=== PATIENT | male | born 1950 | race Caucasian/White ===

== ENCOUNTER 2017-09-09 14:00 | Inpatient (IN) | payer OTHER ==
[~2017-09-09] VITALS: Ht 172.7 cm; Wt 90.2 kg
[2017-09-09] VITALS (33 sets, daily range): BP systolic 94–160; BP diastolic 58–96; PULSE 72–99; RESP 15–31; Ht 172.7 cm; Wt 90.2 kg
[2017-09-09] MEDS ORDERED: ASPIRIN 325 MG TAB PO STA (14:04)
[2017-09-09] MEDS ORDERED: NITROGLYCERIN (SL) 0.4 MG TAB ONE (14:12)
[2017-09-09 14:13] LABS: ABNORMAL IP MESSAGE 1; HEMATOCRIT 38.2 % (42.0-52.0); NUCLEATED RED BLOOD CELLS% 0.4 /100WBC (0.0-0.0); POSITIVE DIFF @See below; WHITE BLOOD COUNT 12.8 10^3/ul (4.8-10.8)
[2017-09-09 14:29] LABS: HEMOGLOBIN 12.2 g/dl (14.0-18.0); MEAN CORPUSCULAR HEMOGLOBIN 26.8 pg (29.0-33.0); MEAN CORPUSCULAR HGB CONC 31.9 g/dl (32.0-37.0); MEAN PLATELET VOLUME 9.2 fl (7.4-10.4); PLATELET COUNT 82 10^3/UL (140-415); RED BLOOD COUNT 4.55 10^6/ul (4.70-6.10); RED CELL DISTRIBUTION WIDTH 14.1 % (11.5-14.5)
[2017-09-09] MEDS ORDERED: NITROGLYCERIN (SL) 0.4 MG TAB SL ONE (14:30)
[2017-09-09] MEDS ORDERED: HEPARIN 1000 UNITS/ML 10 ML INJ IV ONE (14:30)
[2017-09-09 14:31] LABS: INR 1.02; PROTIME 13.4 Sec (12.2-14.2)
[2017-09-09] MEDS ORDERED: LIDOCAINE 1% (MDV) 20 ML INJ ONE (14:38)
[2017-09-09] MEDS ORDERED: FENTAnyl 50 MCG/ML VIAL ONE (14:38)
[2017-09-09] MEDS ORDERED: MIDAZOLAM 1 MG/ML 2 ML INJ ONE (14:38)
[2017-09-09] MEDS ORDERED: TAMS-14 PO (14:39)
[2017-09-09] MEDS ORDERED: VERAPAMIL 5 MG INJ ONE (14:40)
[2017-09-09] MEDS ORDERED: BENA10TA48 PO (14:40)
[2017-09-09] MEDS ORDERED: SIMV40TA2 PO (14:40)
[2017-09-09] MEDS ORDERED: BIVALIRUDIN 250MG /NS 50 ML 50 ML IVPB ONE ×2 (14:40→15:55)
[2017-09-09] MEDS ORDERED: NITROGLYCERIN (IC) 100 MCG/ML INJ ONE (14:41)
[2017-09-09] MEDS ORDERED: SERT25TA PO (14:41)
[2017-09-09] MEDS ORDERED: ASPI-664 PO (14:41)
[2017-09-09] MEDS ORDERED: OMEP20CA16 PO (14:41)
--- NOTE | 2017-09-09 14:44 | RADRPT ---
PROCEDURE: Chest x-ray CLINICAL INDICATION: Chest pain TECHNIQUE: Chest single view COMPARISON: None FINDINGS: There post CABG changes. Moderate cardiomegaly and mild atherosclerotic aortic calcification is seen . There is mild central venous congestion. Small right pleural effusion seen. Left costophrenic angl e sharp. IMPRESSION: 1. Moderate cardiomegaly with mild central venous congestion and small right pleural effusion. 2. Associated right lower lobe atelectasis. 3. Mild atherosclerotic aortic calcification. 4. Status post CABG RPTAT: HH .Eduar Dempsey MD, MD Date Time Electronically viewed and signed by .Eduar Dempsey MD, on 09/09/2017 14:44 .W/
[2017-09-09] MEDS ORDERED: CLOPIDOGREL 300 MG TAB ONE (14:46)
--- NOTE | 2017-09-09 14:48 | ERD ---
ER Documentation Chief Complaint Chief Complaint BIBA FOR CP,STEMI PER EMS,CABG 2WEEKS AGO HPI This is a 67-year-old male who presents to the emergency room by EMS for evaluation of chest pain. The patient states that he is having chest pain for the past 2 hours and localizes it to the middle portion of his chest. He does state that he is mildly nauseous and vomited once. This patient did undergo a bypass procedure at [facility] last week. He is unsure whether or not he has any stents placed. When EMS arrived to his home they transmitted an EKG which did show ST elevation. This patient stated that his pain does not radiate and he describes his pain as a pressure-like sensation worse with deep inspiration. He denies any aggravating or relieving factors for his pain. ROS All systems reviewed and are negative except as per history of present illness. Medications Home Meds Reported Medications Aspirin (Low Dose Aspirin) 81 Mg Tablet.dr, 81 MG PO DAILY, #30 TAB 09/09/17 Omeprazole* (Omeprazole*) 20 Mg Capsule.dr, 20 MG PO DAILY, #30 CAP 09/09/17 Sertraline Hcl* (Zoloft*) 25 Mg Tablet, 25 MG PO DAILY, #30 TAB 09/09/17 Benazepril Hcl* (Benazepril Hcl*) 10 Mg Tablet, 10 MG PO BID, #60 TAB 09/09/17 Simvastatin* (Zocor*) 40 Mg Tablet, 40 MG PO QHS, #30 TAB 09/09/17 Tamsulosin Hcl* (Flomax*) 0.4 Mg Cap.er.24h, 0.4 MG PO DAILY, CAP 09/09/17 Allergies Allergies: Coded Allergies: No Known Allergy (Unverified , 09/09/17) PMhx/Soc History of Surgery: Yes (CABG) Anesthesia Reaction: No Hx Neurological Disorder: No Hx Respiratory Disorders: No Hx Cardiac Disorders: Yes (HTN) Hx Psychiatric Problems: No Hx Miscellaneous Medical Probl: Yes (DM) Hx Alcohol Use: No Hx Substance Use: No Hx Tobacco Use: No Smoking Status: Former smoker Physical Exam Vitals Vital Signs Date Time Temp Pulse Resp B/P Pulse Ox O2 Delivery O2 Flow Rate FiO2 09/09/17 14:15 98.3 96 18 111/94 97 09/09/17 14:11 Nasal Cannula 2 Physical Exam INITIAL VITAL SIGNS: Reviewed by me GENERAL: The patient is well developed, dry vomit on shirt HEENT: Pupils equal, round, and reactive to light. EOMI. There is no scleral icterus. NECK: C-spine is soft and supple, there is no meningismus. There is no cervical lymphadenopathy. LUNGS: Clear to auscultation bilaterally. There are no rales, wheezes or rhonchi. HEART: Regular rate and rhythm, no murmurs, clicks, rubs or gallops. ABDOMEN: Soft, non-tender, non-distended. There are bowel sounds in all four quadrants. No rebound or guarding. EXTREMITIES: There is no peripheral cyanosis or edema. No focal swelling or erythema. NEUROLOGICAL: The patient moves all four extremities with 5/5 strength. Cranial nerves II - XII are intact. Normal gait. Alert and oriented SKIN: Doing sternotomy scar, there is no apparent rash or petechiae. HEME/LYMPHATIC: There is no evidence of excessive bruising or lymphedema. PSYCHIATRIC: The patient does not appear anxious or depressed. Result Diagram: 09/09/17 1400 Results 24 hrs Laboratory Tests Test 09/09/17 14:00 White Blood Count 12.810^3/ul Red Blood Count 4.5510^6/ul Hemoglobin 12.2g/dl Hematocrit 38.2% Mean Corpuscular Volume 84.0fl Mean Corpuscular Hemoglobin 26.8pg Mean Corpuscular Hemoglobin Concent 31.9g/dl Red Cell Distribution Width 14.1% Platelet Count 8210^3/UL Mean Platelet Volume 9.2fl Neutrophils % % Lymphocytes % % Monocytes % % Eosinophils % % Basophils % % Nucleated Red Blood Cells % 0.4/100WBC Neutrophils # 10^3/ul Lymphocytes # 10^3/ul Monocytes # 10^3/ul Eosinophils # 10^3/ul Basophils # 10^3/ul Nucleated Red Blood Cells # 10^3/ul Prothrombin Time 13.4Sec Prothrombin Time Ratio 1.0 INR International Normalized Ratio 1.02 Activated Partial Thromboplast Time Pending Current Medications Medications (Trade) Dose Ordered Sig/Yesi Route PRN Reason Start Time Stop Time Status Last Admin Dose Admin Aspirin (Aspirin) 325 mg ONCE STAT PO 09/09/17 14:04 09/09/17 14:05 DC Nitroglycerin (Nitroglycerin (Sl Tab) 0.4 Mg) 25 tab STK-MED ONCE .ROUTE 09/09/17 14:12 09/09/17 14:13 DC Procedures/MDM EKG: Rate/Rhythm: STEMI QRS, ST, T-waves: Inferior STEMI Impression: Inferior STEMI Chest X-ray 1V Interpreted by me: Soft Tissue: No acute abnormalities Bones: No acute abnormalities Mediastinum/Cardiac Silhouette/Lungs: Cardiomegaly This 67-year-old male presents to the emergency room for evaluation of chest pain. This patient's prehospital EKG did show ST elevation AR. We repeated the EKG when the patient arrived in the emergency room and EKG does demonstrate ST elevation AR. EKG was obtained at 1400. Code STEMI was called at 1401. I did speak with our interventionalist cafeteria monitor Dr. RIVERO at 1403. He states that Dr. Casarez and will take the case. I have spoken to Dr. Casarez at 1407 and he agrees to take the patient. The patient was taken to the Clinical Services Manager at this time. The patient did receive 325 mg of aspirin in route to the hospital. She is hemodynamically stable in the emergency room, did receive 0.4 mg of sublingual nitroglycerin. The patient will be admitted to her panel physician at this time and will be placed in the intensive care unit. Critical Care: Excluding all billable procedures Time: 34 minutes Treatments/Evaluations: Close monitoring and treatment of unstable vital signs, cardiorespiratory, and neurologic status, while maintaining tight balance of fluid, respiratory, and cardiac interventions, reviewing patient's chart, multiple consultations. Departure Diagnosis: Primary Impression: STEMI (ST elevation myocardial infarction) Additional Impression: Chest pain Condition: Serious DELMA LUONG DO Sep 09, 2017 14:48
[2017-09-09 15:14] LABS: CREATININE 1.16 mg/dl (0.61-1.24); POTASSIUM 4.4 mmol/L (3.5-5.1)
[2017-09-09 15:18] LABS: TROPONIN-I 0.3 ng/ml (0.00-0.12)
[2017-09-09 15:37] LABS: EOSINOPHILS # 0.1 10^3/ul (0.0-0.5); EOSINOPHILS % (M) 1 % (0.0-7.0); LYMPHOCYTES # 2.7 10^3/ul (0.8-2.9); MONOCYTE # 1.7 10^3/ul (0.3-0.9); MONOCYTES % (M) 13 % (0-11)
[2017-09-09 15:51] LABS: PARTIAL THROMBOPLASTIN TIME 35.6 Sec (25.0-35.0)
[2017-09-09] MEDS ORDERED: IOHEXOL 350MG/ML 50 ML BTL ONE (15:54)
[2017-09-09] MEDS ORDERED: IODIXANOL LOCM 100 ML BTL ONE (15:55)
[2017-09-09] MEDS ORDERED: morphine 2 MG INJ IV PRN (16:00)
[2017-09-09] MEDS ORDERED: NACL 0.9% 3 ML SYG IV SCH (16:00)
[2017-09-09] MEDS ORDERED: BIVALIRUDIN 250MG /NS 50 ML 50 ML IV SCH (16:00)
--- NOTE | 2017-09-09 16:21 | CONS ---
Date/Time of Note Date/Time of Note DATE: 09/09/17 TIME: 16:10 Assessment/Plan Assessment/Plan Chief Complaint/Hosp Course Inferoposterior STEMI: s/p PCI of 99% ostial LM and 99% SVG-RCA. In discussion with Dr. Castro who did the surgery, there was no left main disease so there is concern for thrombotic occlusion of both the LM and venin graft and we should consider anticoagulation. CAD s/p CABG 09/02/2017: CARTWRIGHT-LAD patent, SVG-diag patent, s/p PCI of SVG-RCA Bio AVR 09/02/2017: valve was not crossed Tobacco use -ASA 81mg -plavix 75mg -start coumadin tomorrow if no groin issues -lipitor 80mg -metoprolol 25mg -ACEI if renal function stable -echo Problems: Consultation Date/Type/Reason Admit Date/Time Date of Consultation: Sep 09, 2017 Type of Consultation: Cardiology Reason for Consultation STEMI Referring Provider: DELMA LUONG DO Hx of Present Illness 67 yo M with a h/o CAD s/p CABG x 3 09/02/2017, AVR at the same time, prior tobacco use, no other known history as pt and family are unaware, who presented with sudden onset chest pain and was found to have an inferoposterior STEMI and was taken to the candlemaking laborer for emergent cath. He was found to have ostial 99% LM s/p PCI and SVG-RCA 99% s/p PCI. In discussion with Dr. Castro who did the surgery, there was no left main disease so there is concern for thrombotic occlusion of both the LM and venin graft and we should consider anticoagulation. per HPI Past Medical History per HPI Social History Smoking Status: Former smoker Exam/Review of Systems Vital Signs Vitals Vital Signs Date Time Temp Pulse Resp B/P Pulse Ox O2 Delivery O2 Flow Rate FiO2 09/09/17 14:15 98.3 96 18 111/94 97 09/09/17 14:11 Nasal Cannula 2 Exam Constitutional: alert, distress (severe chest pain ), oriented Head: atraumatic, normocephalic Neck: jvd (8cm) Respiratory: crackles/rales, No clear to auscultation Cardiovascular: regular rate and rhythm, No edema, No systolic murmur Gastrointestinal: non-tender, soft Extremities: No normal pulses Neurological: nl mental status, nl speech Skin: No rash or lesions Results sinus, inferoposterior STEMI with reciprocal ST depression. Result Diagram: 09/09/17 1400 09/09/17 1400 Results 24 hrs Laboratory Tests Test 09/09/17 14:00 White Blood Count 12.8 H Red Blood Count 4.55 L Hemoglobin 12.2 L Hematocrit 38.2 L Mean Corpuscular Volume 84.0 Mean Corpuscular Hemoglobin 26.8 L Mean Corpuscular Hemoglobin Concent 31.9 L Red Cell Distribution Width 14.1 Platelet Count 82 L Mean Platelet Volume 9.2 Neutrophils % Segmented Neutrophils % (Manual) 63 Band Neutrophils % (Manual) 2 Lymphocytes % Lymphocytes % (Manual) 21 Monocytes % Monocytes % (Manual) 13 H Eosinophils % Eosinophils % (Manual) 1 Basophils % Nucleated Red Blood Cells % 0.4 H Neutrophils # Neutrophils # (Manual) 8.1 H Band Neutrophils # 0.2 Absolute Lymphocytes (Manual) 2.6 Lymphocytes # 2.7 Monocytes # 1.7 H Absolute Monocytes (Manual) 1.6 H Eosinophils # 0.1 Basophils # Nucleated Red Blood Cells # Prothrombin Time 13.4 Prothrombin Time Ratio 1.0 INR International Normalized Ratio 1.02 Activated Partial Thromboplast Time 35.6 H Sodium Level 140 Potassium Level 4.4 Chloride Level 101 Carbon Dioxide Level 25 Anion Gap 18 H Blood Urea Nitrogen 17 Creatinine 1.16 Glucose Level 160 Calcium Level 10.0 Troponin I 0.300 *H Medications Medications Current Medications Enoxaparin Sodium (Lovenox) 40 mg DAILY SC ; Start 09/10/17 at 09:00; Status UNV Aspirin (Halfprin) 81 mg DAILY PO ; Start 09/10/17 at 09:00; Status UNV Miscellaneous Information 40 mg QHS PO ; Start 09/09/17 at 21:00; Status UNV ASHLEY HENLEY Sep 09, 2017 16:21
--- NOTE | 2017-09-09 16:26 | OPR ---
Date/Time of Note Date/Time of Note DATE: 09/09/17 TIME: 16:22 Operative Report Preoperative Diagnosis inferoposterior STEMI Postoperative Diagnosis same s/p PCI of ostial LM and SVG-RCA Surgeon see signature line Paper Sealer none Anesthesia Type: moderate sedation Estimated Blood Loss: minimal Transfusion none Specimen none Grafts/Implants none Complications none Procedure Description Procedure Date:09/09/2017 Echocardiograph Tech/surgeon: Anthony Verdin MD. Procedures Performed: 1)Left heart catheterization with selective left and right coronary angiography. 2)Selective angiography of vein grafts and CARTWRIGHT 3)Aortogram 4)Balloon angioplasty and stenting of the ostial left main with a Synergy 4.0 x 12 stent. 5)Balloon angioplasty and stenting of the mid SVG-RCA with a Synergy 4.0 x 12 stent with distal embolic protection. 6)Right femoral angiography and Perclose closure device Pre-operative Diagnosis:STEMI Post-operative Diagnosis:STEMI s/p PCI as above Indications:67 yo M with a h/o CAD s/p CABG x 3 09/02/2017, AVR at the same time , prior tobacco use, no other known history as pt and family are unaware, who presented with sudden onset chest pain and was found to have an inferoposterior STEMI and was taken to the powerhouse laborer for emergent cath. Description of Procedure: After informed consent, the patient was brought to the cardiac catheterization lab. The procedure site was prepped and draped in usual manner. The patient was premedicated with versed 1mg. 5mL lidocaine was injected into the right groin. Next using the Seldinger technique, the 6 german sheath was inserted into the right femoral artery. Next using the JL4 diagnostic and JR4 guide catheter, elective angiography of the left and right coronary arteries were obtained. The JR was advanced and the CARTWRIGHT was injected as well. The decision was made to proceed with PCI of the ostial LM due to the occlusive nature of the disease and decreased flow as well as no acute occlusion noted in the RCA. A JL 3.5 with side hole guide was advanced and engaged into the left coronary artery. After appropriate anticoagulation and antiplatelets were given , the BMW angioplasty wire was advanced past the lesion. Next the 2.5 X 12 balloon was used to dilate the lesion times 1 at a maximum of 10 salomon. Subsequently, the Synergy 4.0 x 12 stent was advanced to the lesion and deployed at 12 salomon. Next the stent was post dilated with the 4.0 X 8 noncompliant balloon times 3 at a maximum of 14 salomon. Final angiography revealed ROBERTO 3 flow, no edge dissection, and appropriate stent expansion. At this time the pt's symptoms resolved and ST changes improved. Next the decision was made to evaluate the other grafts. An aortogram was done in 2 views and showed 2 grafts. The decision was made to proceed with PCI of the SVG-RCA due to the occlusive nature of the lesion. A JR 3.5 guide was advanced and engaged into the vein graft. The EZ filterwire angioplasty wire was advanced past the lesion and the distal protection device deployed. Next the 2.5 X 12 balloon was used to dilate the lesion times 1 at a maximum of 10 salomon. Subsequently, the Synergy 4.0 x 12 stent was advanced to the lesion and deployed at 16 salomon. The stent was not dilated due to the possibility of thrombus. Final angiography revealed ROBERTO 3 flow, no edge dissection, and appropriate stent expansion. Next all equipment was removed and hemostasis was achieved by Perclose closure device. Findings: Anatomy/Hemodynamics: Left main: ostial 99% hazy lesion with ROBERTO 2 flow LAD: ostial 100%, fills via CARTWRIGHT Diagonal:fills via SVG Circumflex: ectatic vessel with 20-30% plaquing, distal vessel with diffuse disease Obtuse marginal: luminal irregularities RCA: ectatic vessel with prox 80% PDA: luminal irregularities PLV:luminal irregularities LV angiography: not done as fresh AVR not crossed Slightly dilated sinus of valsalva Contrast used: 270mL Fluoroscopy time:13.8 min Medications used: Versed 1mg Angiomax Equipment used: Ostial LM: 6 german JL 3.5 with side holes guide BMW angioplasty wire 2.5 x 12 balloon Synergy 4.0 x 12 drug eluting stent 4.0 x 8 noncompliant balloon SVG-RCA: 6 german JR 3.5 guide Filterwire EZ distal protection device 2.5 x 12 balloon Synergy 4.0 x 12 drug eluting stent Estimated blood loss<10 mL. Specimen: none Grafts/implants: none Complications: none Assessment: Inferoposterior STEMI: Initially PCI of the ostial LM was performed which resolved the EKG changes and symptoms but due to thrombotic occlusion of the SVG -RCA as well, this was also stented successfully. Possible thrombotic occlusion of both as per Dr. Castro, the pt had a normal left main prior to surgery one week ago. CAD s/p CABG Bio AVR Plan: -ASA, plavix -start coumadin for likely embolic event -lipitor, metoprolol -ICU observation for now ANTHONY VERDIN Sep 09, 2017 16:26
[2017-09-09] MEDS: SOD CHLORIDE 0.9% 1,000 ML IV SCH ×2 (16:47→23:02)
--- NOTE | 2017-09-09 17:44 | HP ---
Date/Time of Note Date/Time of Note DATE: 09/09/17 TIME: 17:43 Assessment/Plan VTE Prophylaxis VTE Prophylaxis Intervention: other (As per cardiology) Lines/Catheters IV Catheter Type (from [email or web address] A Line Urinary Cath still in place: No Assessment/Plan Chief Complaint/Hosp Course 1. STEMI. Patient status post triple-vessel CABG (CARTWRIGHT-LAD , SVG-diag , SVG- RCA) with current occlusion of left main and SVG-RCA graft. Status post balloon angioplasty and stenting of the ostial left main with a Synergy 4.0 x 12 stent along with balloon angioplasty and stenting of the mid SVG-RCA with a Synergy 4.0 x 12 stent with distal embolic protection. Continue dual antiplatelet therapy. Optimize cardiac medications. 2. Status post recent aortic valve replacement on 09/02/2017. The patient to be resumed on warfarin as per cardiology. 3. Essential hypertension. Continue antihypertensives. 4. Type 2 diabetes mellitus. Metformin will be put on hold. The patient will be started on sliding scale insulin along with pre-meal insulin. Hemoglobin A1c will be obtained to evaluate the blood glucose control over the past few weeks. 5. Anemia. Normocytic and hypochromic. Monitor H&H closely. 6. Thrombocytopenia. Etiology unclear. Monitor the patient closely for bleeding. 7. Pulmonary vascular congestion on chest x-ray. Possible underlying CHF. Systolic versus diastolic dysfunction. Will diurese the patient gently while watching the renal function. Obtain 2D echo. Plan: The patient will be admitted to inpatient Intensive care unit floor. The patient will be started on a carbohydrate controlled diet. The patient will remain a full code. Activities will be bedrest. The rest of the patient's management will be based on the clinical course, inputs from consultants, and the results of diagnostic studies. Based on the patient's clinical presentation, he most probably requires at least 1 midnight's stay for further management and evaluation of his clinical presentation. The case and management of this patient was fully discussed with Dr. Kurtz. Problems: HPI/ROS Admit Date/Time Admit Date/Time Hx of Present Illness Reason for admission: Chest pain, code STEMI Consultants 1. Anthony Verdin MD, Cardiology. This is a 67-year-old [place] male with past medical history of essential hypertension, diabetes mellitus, dyslipidemia, and CAD who is status post CABG 3 along with bioprosthetic aortic valve replacement on 09/02/2017 at [facility]. He was discharged home from [facility] following the surgery. The patient started having chest pain today that was described as pain in the middle portion of the chest. There was also reported nausea and one episode of vomiting. When the EMS arrived to his home they transmitted an EKG which did show ST elevation. Therefore, the patient was brought to the emergency room. A code STEMI was activated. Twelve-lead EKG revealed inferoposterior STEMI. He was taken to the skill labor. The patient was found to have ostial 99% left main blockage and SVG-RCA graft 99% blockage. The patient underwent a balloon angioplasty and stenting of the ostial left main with a Synergy 4.0 x 12 stent along with balloon angioplasty and stenting of the mid SVG-RCA with a Synergy 4.0 x 12 stent with distal embolic protection. The patient was transferred to the intensive care unit following the procedure. ROS Constitutional: no complaints Eyes: no complaints ENT: no complaints Respiratory: shortness of breath Cardiovascular: chest pain Gastrointestinal: no complaints Genitourinary: no complaints Musculoskeletal: no complaints Skin: no complaints Neurologic: no complaints Endocrine: no complaints Lymphatic: no complaints Psychological: no complaints Immunologic: no complaints PMH/Family/Social Past Medical History Medical History: coronary artery disease, diabetes, hypertension Past Surgical History Past Surgical Hx: coronary bypass surgery (On 09/02/2017: CARTWRIGHT-LAD , SVG-diag , SVG-RCA), other (AVR bioprosthetic Valve on 09/02/2017) Social History Lives at home. Alcohol Use: none Smoking Status: Former smoker Drug Use: none Exam/Review of Systems Vital Signs Vitals Vital Signs Date Time Temp Pulse Resp B/P Pulse Ox O2 Delivery O2 Flow Rate FiO2 09/09/17 17:00 91 16 114/92 100 Room Air 09/09/17 16:05 98.1 09/09/17 14:11 2 Exam Exam General: Adequately build 67 year-old male lying in bed in mild respiratory distress. HEENT: Normocephalic, atraumatic. Eyes: Anicteric sclerae, conjunctivae clear. ENT: Nasal septum midline, oral mucosa moist. Neck supple, JVD noticed. Respiratory: Bilaterally diminished breath sounds. Minimal use of accessory muscles of respiration. No adventitious breath sounds. Cardiovascular: S1, S2 heard. Regular rate and rhythm. Sternotomy scar well healing. Abdomen: Soft, nontender, and nondistended. Bowel sounds positive in all 4 quadrants. Genitourinary: Right groin arterial sheath. Extremities: No cyanosis, no clubbing, no edema. Peripheral pulses palpable. Neurologic: Cranial nerves II through XII grossly intact. The patient is awake, alert, and oriented. Skin: Normal skin turgor. No skin rashes. Labs Result Diagram: 09/09/17 1400 09/09/17 1400 Medications Medications Current Medications Enoxaparin Sodium (Lovenox) 40 mg DAILY SC ; Start 09/10/17 at 09:00 Aspirin (Halfprin) 81 mg DAILY PO ; Start 09/10/17 at 09:00 Atorvastatin Calcium (Lipitor) 20 mg QHS PO ; Start 09/09/17 at 21:00 Morphine Sulfate (morphine) 2 mg Q2H PRN IV FOR NON CARDIAC PAIN (4-10); Start 09/09/17 at 16:00 Clopidogrel Bisulfate (plaVIX) 75 mg DAILY PO ; Start 09/10/17 at 09:00 Aspirin (Aspirin) 81 mg DAILY PO ; Start 09/10/17 at 09:00 Atorvastatin Calcium (Lipitor) 80 mg QHS PO ; Start 09/09/17 at 21:00 Metoprolol Tartrate 25 mg 25 mg BID PO ; Start 09/09/17 at 21:00 Bivalirudin 50 ml @ 26.25 mls/ hr Q1H55M IV ; Start 09/09/17 at 16:00; Stop 09/09/17 at 20:00 Sodium Chloride (NS) 1,000 ml @ 75 mls/hr [id number] IV Last administered on t 16:47; Admin Dose 75 MLS/HR; Start 09/09/17 at 17:00; Stop 09/10/17 at 05:00 Procedures Procedures CXR IMPRESSION: 1. Moderate cardiomegaly with mild central venous congestion and small right pleural effusion. 2. Associated right lower lobe atelectasis. 3. Mild atherosclerotic aortic calcification. 4. Status post CABG Procedures Performed: 1)Left heart catheterization with selective left and right coronary angiography. 2)Selective angiography of vein grafts and CARTWRIGHT 3)Aortogram 4)Balloon angioplasty and stenting of the ostial left main with a Synergy 4.0 x 12 stent. 5)Balloon angioplasty and stenting of the mid SVG-RCA with a Synergy 4.0 x 12 stent with distal embolic protection. 6)Right femoral angiography and Perclose closure device JOSR RODRIGUEZ NP Sep 09, 2017 17:44
[2017-09-09] MEDS ORDERED: FUROSEMIDE 20 MG INJ IV ONE (18:00)
[2017-09-09] MEDS ORDERED: GLUCAGON 1 MG INJ IM PRN (18:00)
[2017-09-09] MEDS ORDERED: DEXTROSE 50% 50 ML SYRINGE IV PRN ×2 (18:00)
[2017-09-09] MEDS ORDERED: GLUCOSE GEL 15 GRAM TUBE PO PRN ×2 (18:00)
[2017-09-09] MEDS ORDERED: GLUCOSE GEL 15 GRAM TUBE BUCCAL PRN (18:00)
[2017-09-09] MEDS: BIVALIRUDIN 250MG /NS 50 ML 50 ML IVPB SCH ×2 (18:11→19:36)
[2017-09-09] MEDS ORDERED: LORAZEPAM 2 MG INJ ONE (18:13)
[2017-09-09] MEDS ORDERED: LORAZEPAM 2 MG INJ IV ONE (18:30)
[2017-09-09 20:42] LABS: TROPONIN-I 10.9 ng/ml (0.00-0.12)
[2017-09-09] MEDS ORDERED: BENAZEPRIL 10 MG TAB PO SCH (21:00)
[2017-09-09] MEDS: INSULIN ASPART [NOVOLOG] 3 ML PEN SC SCH (21:00)
[2017-09-09] MEDS ORDERED: ATORVASTATIN 20 MG TAB PO SCH (21:00)
[2017-09-09] MEDS: ATORVASTATIN 80 MG TAB PO SCH (21:51)
[2017-09-09] MEDS: METOPROLOL 25 MG TAB PO SCH (21:52)
[2017-09-09] MEDS ORDERED: HALOPERIDOL 5 MG INJ ONE (22:51)
[2017-09-09] MEDS ORDERED: HALOPERIDOL 5 MG INJ IM ONE (23:00)
[2017-09-10] VITALS (22 sets, daily range): BP systolic 93–127; BP diastolic 51–84; PULSE 75–98; RESP 15–29
[2017-09-10] MEDS ORDERED: DIPHENHYDRAMINE 50 MG INJ IV ONE (01:30)
[2017-09-10] MEDS: ACCU-CHEK XX SCH (01:44)
[2017-09-10] MEDS ORDERED: ACCU-CHEK XX SCH (02:00)
[2017-09-10] MEDS ORDERED: HALOPERIDOL 5 MG INJ IM ONE (02:30)
[2017-09-10] MEDS ORDERED: traZODone 50 MG TAB PO ONE (03:30)
[2017-09-10 03:56] LABS: ABNORMAL IP MESSAGE 1; BASOPHIL # 0.1 10^3/ul (0.0-0.1); BASOPHILS % 0.5 % (0.0-2.0); EOSINOPHILS % 0.3 % (0.0-7.0); HEMATOCRIT 35.2 % (42.0-52.0); HEMOGLOBIN 11.3 g/dl (14.0-18.0); LYMPHOCYTES # 1.8 10^3/ul (0.8-2.9); LYMPHOCYTES % 16.6 % (15.0-51.0); MEAN CORPUSCULAR HEMOGLOBIN 26.4 pg (29.0-33.0); MEAN CORPUSCULAR HGB CONC 32.1 g/dl (32.0-37.0); MEAN CORPUSCULAR VOLUME 82.2 fl (82.0-101.0); MEAN PLATELET VOLUME 8.9 fl (7.4-10.4); MONOCYTE # 0.9 10^3/ul (0.3-0.9); MONOCYTES % 8.4 % (0.0-11.0); NEUTROPHIL # 7.5 10^3/ul (1.6-7.5); NEUTROPHILS % 69.6 % (39.0-77.0); NUCLEATED RED BLOOD CELLS% 0.3 /100WBC (0.0-0.0); PLATELET COUNT 41 10^3/UL (140-415); POSITIVE DIFF @See below; RED BLOOD COUNT 4.28 10^6/ul (4.70-6.10); RED CELL DISTRIBUTION WIDTH 14.5 % (11.5-14.5); WHITE BLOOD COUNT 10.7 10^3/ul (4.8-10.8)
[2017-09-10 04:04] LABS: ALBUMIN/GLOBULIN RATIO 1.05; BILIRUBIN,INDIRECT 1.2 mg/dl (0-1.1); BILIRUBIN,TOTAL 1.2 mg/dl (0.2-1.3); CALCIUM 9.3 mg/dl (8.4-10.2); CREATININE 1.3 mg/dl (0.61-1.24); POTASSIUM 3.7 mmol/L (3.5-5.1); TOTAL PROTEIN 7.8 g/dl (6.1-8.1)
[2017-09-10 04:05] LABS: CHOL/HDL RATIO 12.7 RATIO; MAGNESIUM 1.9 mg/dl (1.7-2.5); PHOSPHORUS 4.7 mg/dl (2.5-4.9)
[2017-09-10 05:32] LABS: CK-MB 41.4 ng/ml (0.0-2.4)
[2017-09-10 05:33] LABS: TROPONIN-I 17.8 ng/ml (0.00-0.12)
--- NOTE | 2017-09-10 07:14 | RADRPT ---
Echocardiogram Report Patient Name: ROOSEVELT TORRES Gender: Male Date: 1950 Study Date: 09-Sep-2017 Acquisition Associate: KIRAN Mosley.[facility] Location: [address] [place] [address]. Physician: ADRIAN WHEELER Quality: Technically Difficult Study Procedures: Transthoracic echocardiogram with complete 2D, M-Mode, and doppler examination. Indications: STEMI. 2D/M Mode Doppler Measurement Value Normal Ranges Measurement Value Normal Ranges LVIDd 2D 3.9 3.5 - 5.6 cm GIANCARLO Vmax 1.9 cm2 LVIDs 2D 2.8 2.1 - 4.1 cm GIANCARLO VTI 1.8 cm2 FS 2D 26.6 % AV Mean Honorio 1.2 m/sec LVPWd 2D 1.2 0.6 - 1.1 cm AV Mean PG 6.0 mmHg IVSd 2D 1.1 0.6 - 1.1 cm AV Peak Honorio 1.6 m/sec IVS/LVPW 2D 0.9 AV Peak PG 10.0 mmHg AoR Diam 2D 2.0 2.0 - 3.7 cm AV VTI 29.7 cm LA/Ao 2D 2 0 - 1 LVOT Mean Honorio 0.7 m/sec EDV 2D 58.0 cm3 LVOT Mean PG 3.0 mmHg ESV 2D 22.9 cm3 LVOT Peak Honorio 1.2 m/sec LA Dimen 2D 4.2 2.3 - 4.0 cm LVOT Peak PG 6.0 mmHg LVOT Diam 1.8 cm LVOT VTI 21.2 cm LVOT Area 2.5 cm2 MV E Peak Honorio 1.0 m/sec MV A Peak Honorio 1.2 m/sec MV E/A 0.9 MV Decel Time 165 msec MV E/A 0.9 TR Peak Honorio 2.6 m/sec TR Peak PG 28.0 mmHg RVSP 33.0 mmHg Findings Left Ventricle: Lower limits of normal systolic function. Normal left ventricular cavity size. Mild concentric left ventricular hypertrophy. Ejection fraction is visually estimated at 50 %. Tissue Doppler/Mitral Doppler indices are consistent with impaired relaxation (Stage I diastolic dysfunction). Abnormal septal motion secondary to cardiac surgery. Hypokinesis of the basal to mid inferior wall. Not all jim well visualized. Right Ventricle: Normal right ventricular size. Normal right ventricular systolic function. Left Atrium: There is mild enlargement of left atrium. Right Atrium: The right atrium is normal in size. Mitral Valve: Mitral valve leaflets appear mildly thickened. Mild mitral annular calcification. Mild mitral valve regurgitation. Aortic Valve: Aortic Valve Bio Prosthesis. Gradients normal for valve type and size. No aortic regurgitation. Tricuspid Valve: Normal appearance of the tricuspid valve. Estimated peak PA systolic pressure 28 mmHg. There is trace to mild tricuspid regurgitation. Pulmonic Valve: Pulmonic valve not well visualized. Pericardium: Normal pericardium with no significant pericardial effusion. Aorta: Normal aortic root. IVC: The IVC is not well visualized. Conclusions Lower limits of normal systolic function. Normal left ventricular cavity size. Mild concentric left ventricular hypertrophy. Ejection fraction is visually estimated at 50 %. Tissue Doppler/Mitral Doppler indices are consistent with impaired relaxation (Stage I diastolic dysfunction). Abnormal septal motion secondary to cardiac surgery. Hypokinesis of the basal to mid inferior wall. Not all jim well visualized. Aortic Valve Bio Prosthesis. Gradients normal for valve type and size. No aortic regurgitation. Estimated peak PA systolic pressure 28 mmHg plus RA pressure. Electronically Signed By: Anthony Verdin 10-Sep-2017 07:13:05 -0700 Patient Name: ROOSEVELT TORRES Study Date: 09-Sep-2017 [id number]
[2017-09-10] MEDS: INSULIN ASPART [NOVOLOG] 3 ML PEN SC SCH ×7 (07:35→21:06)
--- NOTE | 2017-09-10 08:08 | CONS ---
Date/Time of Note Date/Time of Note DATE: 09/10/17 TIME: 08:04 Assessment/Plan Assessment/Plan Chief Complaint/Hosp Course Inferoposterior STEMI: s/p PCI of 99% ostial LM and 99% SVG-RCA. In discussion with Dr. Castro who did the surgery, there was no left main disease so there is concern for thrombotic occlusion of both the LM and vein graft and we should consider anticoagulation. EF remains preserved on echo. CAD s/p CABG 09/02/2017: CARTWRIGHT-LAD patent, SVG-diag patent, s/p PCI of SVG-RCA CKD: Monitor renal function post cath Bio AVR 09/02/2017: valve was not crossed. Normal function by echo. Tobacco use -ASA 81mg -plavix 75mg -start coumadin (will start with 5mg daily and can be dosed accordingly) -lipitor 80mg -metoprolol 25mg -ACEI if renal function stable Problems: Consultation Date/Type/Reason Admit Date/Time Sep 09, 2017 at 15:37 Initial Consult Date 09/09/17 Type of Consultation: Cardiology Referring Provider: DELMA LUONG DO 24 HR Interval Summary Free Text/Dictation Very agitated overnight and sheath had to be pulled early and angiomax stopped. He had to be sedated and is currently sleeping. No arrhythmias on tele. Exam/Review of Systems Vital Signs Vitals Vital Signs Date Time Temp Pulse Resp B/P Pulse Ox O2 Delivery O2 Flow Rate FiO2 09/10/17 07:00 87 20 97/77 100 Room Air 09/10/17 00:00 97.7 09/09/17 14:11 2 Intake and Output 09/09/17 09/09/17 09/10/17 15:00 23:00 07:00 Intake Total 1369.71 ml 550 ml Output Total 700 ml 1050 ml Balance 669.71 ml -500 ml Exam Constitutional: No alert (sleeping ), No oriented Head: atraumatic, normocephalic Neck: supple, No jvd Respiratory: clear to auscultation, No crackles/rales Cardiovascular: regular rate and rhythm, No edema, No systolic murmur Gastrointestinal: non-tender, soft Extremities: other (rightgroin no hematokma but medial thigh has ecchymosis ) Neurological: No nl mental status Results Result Diagram: 09/10/17 0330 09/10/17 0330 Results 24 hrs Laboratory Tests Test 09/09/17 14:00 09/09/17 17:30 09/09/17 19:50 09/09/17 21:10 White Blood Count 12.8 H Red Blood Count 4.55 L Hemoglobin 12.2 L Hematocrit 38.2 L Mean Corpuscular Volume 84.0 Mean Corpuscular Hemoglobin 26.8 L Mean Corpuscular Hemoglobin Concent 31.9 L Red Cell Distribution Width 14.1 Platelet Count 82 L Mean Platelet Volume 9.2 Neutrophils % Segmented Neutrophils % (Manual) 63 Band Neutrophils % (Manual) 2 Lymphocytes % Lymphocytes % (Manual) 21 Monocytes % Monocytes % (Manual) 13 H Eosinophils % Eosinophils % (Manual) 1 Basophils % Nucleated Red Blood Cells % 0.4 H Neutrophils # Neutrophils # (Manual) 8.1 H Band Neutrophils # 0.2 Absolute Lymphocytes (Manual) 2.6 Lymphocytes # 2.7 Monocytes # 1.7 H Absolute Monocytes (Manual) 1.6 H Eosinophils # 0.1 Basophils # Nucleated Red Blood Cells # Prothrombin Time 13.4 Prothrombin Time Ratio 1.0 INR International Normalized Ratio 1.02 Activated Partial Thromboplast Time 35.6 H Sodium Level 140 Potassium Level 4.4 Chloride Level 101 Carbon Dioxide Level 25 Anion Gap 18 H Blood Urea Nitrogen 17 Creatinine 1.16 Glucose Level 160 Calcium Level 10.0 Troponin I 0.300 *H 10.900 *H Bedside Glucose 151 128 Creatine Kinase 551 H Creatine Kinase Index 7.3 Creatinine Kinase MB (Mass) 40.00 H Test 09/10/17 01:39 09/10/17 03:30 09/10/17 07:49 Bedside Glucose 125 133 White Blood Count 10.7 Red Blood Count 4.28 L Hemoglobin 11.3 L Hematocrit 35.2 L Mean Corpuscular Volume 82.2 Mean Corpuscular Hemoglobin 26.4 L Mean Corpuscular Hemoglobin Concent 32.1 Red Cell Distribution Width 14.5 Platelet Count 41 #L Mean Platelet Volume 8.9 Neutrophils % 69.6 Lymphocytes % 16.6 Monocytes % 8.4 Eosinophils % 0.3 Basophils % 0.5 Nucleated Red Blood Cells % 0.3 H Neutrophils # 7.5 Lymphocytes # 1.8 Monocytes # 0.9 Eosinophils # 0.0 Basophils # 0.1 Nucleated Red Blood Cells # 0.0 Sodium Level 140 Potassium Level 3.7 Chloride Level 102 Carbon Dioxide Level 24 Anion Gap 18 H Blood Urea Nitrogen 17 Creatinine 1.30 H Glucose Level 136 Calcium Level 9.3 Phosphorus Level 4.7 Magnesium Level 1.9 Total Bilirubin 1.2 Direct Bilirubin 0.00 Indirect Bilirubin 1.2 H Aspartate Amino Transf (AST/SGOT) 113 H Alanine Aminotransferase (ALT/SGPT) 50 Alkaline Phosphatase 65 Creatine Kinase 909 #H Creatine Kinase Index 4.6 Creatinine Kinase MB (Mass) 41.40 H Troponin I 17.800 *H Total Protein 7.8 Albumin 4.0 Globulin 3.80 H Albumin/Globulin Ratio 1.05 Triglycerides Level 290 H Cholesterol Level 204 H LDL Cholesterol, Calculated 130 HDL Cholesterol 16 L Cholesterol/HDL Ratio 12.7 Medications Medications Current Medications Enoxaparin Sodium (Lovenox) 40 mg DAILY SC ; Start 09/10/17 at 09:00 Aspirin (Halfprin) 81 mg DAILY PO ; Start 09/10/17 at 09:00 Atorvastatin Calcium (Lipitor) 20 mg QHS PO ; Start 09/09/17 at 21:00 Morphine Sulfate (morphine) 2 mg Q2H PRN IV FOR NON CARDIAC PAIN (4-10); Start 09/09/17 at 16:00 Clopidogrel Bisulfate (plaVIX) 75 mg DAILY PO ; Start 09/10/17 at 09:00 Aspirin (Aspirin) 81 mg DAILY PO ; Start 09/10/17 at 09:00 Atorvastatin Calcium (Lipitor) 80 mg QHS PO Last administered on 09/09/17 21: 51; Admin Dose 80 MG; Start 09/09/17 at 21:00 Metoprolol Tartrate (Lopressor) 25 mg BID PO Last administered on 09/09/17 21 :52; Admin Dose 25 MG; Start 09/09/17 at 21:00 Diagnostic Test (Pha) (Accu-Chek) 1 ea 02 XX Last administered on 09/10/17 01 :43; Admin Dose 1 EA; Start 09/10/17 at 02:00 Diagnostic Test (Pha) (Accu-Chek) 1 ea 02 XX ; Start 09/10/17 at 02:00 Miscellaneous Information 1 ea NOTE XX ; Start 09/09/17 at 18:00 Glucose (Glutose) 15 gm Q15M PRN PO DECREASED GLUCOSE; Start 09/09/17 at 18:00 Glucose (Glutose) 22.5 gm Q15M PRN PO DECREASED GLUCOSE; Start 09/09/17 at 18: 00 Dextrose (D50w Syringe) 25 ml Q15M PRN IV DECREASED GLUCOSE; Start 09/09/17 at 18:00 Dextrose (D50w Syringe) 50 ml Q15M PRN IV DECREASED GLUCOSE; Start 09/09/17 at 18:00 Glucagon (Glucagen) 1 mg Q15M PRN IM DECREASED GLUCOSE; Start 09/09/17 at 18: 00 Glucose (Glutose) 15 gm Q15M PRN BUCCAL DECREASED GLUCOSE; Start 09/09/17 at 18:00 Lorazepam (Ativan) 0.5 mg Q6H PRN PO ANXIETY; Start 09/09/17 at 18:30 ASHLEY HENLEY Sep 10, 2017 08:08
[2017-09-10] MEDS: CLOPIDOGREL 75 MG TAB PO SCH (08:10)
[2017-09-10] MEDS: ASPIRIN 81 MG TAB PO SCH (08:15)
[2017-09-10] MEDS: METOPROLOL 25 MG TAB PO SCH ×2 (08:18→21:00)
[2017-09-10] MEDS ORDERED: ASPIRIN (EC) 81 MG TAB PO SCH (09:00)
[2017-09-10] MEDS ORDERED: ENOXAPARIN 40 MG/0.4 ML SYG SC SCH (09:00)
--- NOTE | 2017-09-10 09:00 | PN ---
Date/Time of Note Date/Time of Note DATE: 09/10/17 TIME: 08:59 Assessment/Plan Lines/Catheters IV Catheter Type (from [facility]): Saline Lock Reddy in Place (from [facility]): No Assessment/Plan Assessment/Plan s/p AVR/CABG presented with STEMI and found to have clot in LM and right vein graft s/p PCI. Most likely through clot from aortic valve, will need coumadin as well as ASA and plavix. Discussed with Dr. Verdin Exam/Review of Systems Vital Signs Vitals Vital Signs Date Time Temp Pulse Resp B/P Pulse Ox O2 Delivery O2 Flow Rate FiO2 09/10/17 08:00 98.0 92 29 111/73 100 Room Air 09/09/17 14:11 2 Intake and Output 09/09/17 09/09/17 09/10/17 15:00 23:00 07:00 Intake Total 1369.71 ml 550 ml Output Total 700 ml 1050 ml Balance 669.71 ml -500 ml Results Result Diagram: 09/10/17 0330 09/10/17 0330 KAITLIN MILNER MD Sep 10, 2017 09:00
[2017-09-10] MEDS: WARFARIN 5 MG TAB PO SCH (16:46)
--- NOTE | 2017-09-10 19:34 | PN ---
Date/Time of Note Date/Time of Note DATE: 09/10/17 TIME: 19:31 Assessment/Plan VTE Prophylaxis VTE Prophylaxis Intervention: LMWH Lines/Catheters IV Catheter Type (from [facility]): Saline Lock Urinary Cath still in place: No Assessment/Plan Chief Complaint/Hosp Course 67 yo male with h/o CAD adn s/p bioprosthetic AV and CABG two weeks ago who presented with NSTEMI of vein graft, s/p PCI - Continue aspirin, plavix, and statin for CAD w stent - Coumadin for bioprosthesis Thrombocytopenia: - Unclear etiology, perhaps HIT - Trend - Will need to consider stopping AC if continues - Consider hematology evaluation DMII: - Continue basal/bolus insulin CHANO - monitor Dispo likely tomorrow Problems: Subjective 24 Hr Interval Summary Free Text/Dictation Doing well today s/p PCI Exam/Review of Systems Vital Signs Vitals Vital Signs Date Time Temp Pulse Resp B/P Pulse Ox O2 Delivery O2 Flow Rate FiO2 09/10/17 18:01 98.1 89 18 93/56 99 Room Air 09/09/17 14:11 2 Intake and Output 09/09/17 09/09/17 09/10/17 15:00 23:00 07:00 Intake Total 1369.71 ml 550 ml Output Total 700 ml 1050 ml Balance 669.71 ml -500 ml Exam Constitutional: alert, oriented, well developed Psych: nl mood/affect, no complaints Head: atraumatic, normocephalic Eyes: EOMI, PERRL, nl conjunctiva, nl lids, nl sclera ENMT: nl external ears & nose, nl lips & teeth, nl nasal mucosa & septum Neck: non-tender, supple Respiratory: clear to auscultation, normal air movement Cardiovascular: nl pulses, regular rate and rhythm Gastrointestinal: nl liver, spleen, non-tender, soft Musculoskeletal: nl extremities to inspection, nl gait and stance Extremities: normal pulses Neurological: EXECUTIVE PASTRY CHEF II-XII intact, nl mental status, nl speech, nl strength Skin: nl turgor, No rash or lesions Lymph: nl lymph nodes Results Result Diagram: 09/10/1732909/10/17329 Results 24 hrs Laboratory Tests Test 09/09/17 19:50 09/09/17 21:10 09/10/17 01:39 09/10/17 03:30 Creatine Kinase 551 H 909 #H Creatine Kinase Index 7.3 4.6 Creatinine Kinase MB (Mass) 40.00 H 41.40 H Troponin I 10.900 *H 17.800 *H Bedside Glucose 128 125 White Blood Count 10.7 Red Blood Count 4.28 L Hemoglobin 11.3 L Hematocrit 35.2 L Mean Corpuscular Volume 82.2 Mean Corpuscular Hemoglobin 26.4 L Mean Corpuscular Hemoglobin Concent 32.1 Red Cell Distribution Width 14.5 Platelet Count 41 #L Mean Platelet Volume 8.9 Neutrophils % 69.6 Lymphocytes % 16.6 Monocytes % 8.4 Eosinophils % 0.3 Basophils % 0.5 Nucleated Red Blood Cells % 0.3 H Neutrophils # 7.5 Lymphocytes # 1.8 Monocytes # 0.9 Eosinophils # 0.0 Basophils # 0.1 Nucleated Red Blood Cells # 0.0 Sodium Level 140 Potassium Level 3.7 Chloride Level 102 Carbon Dioxide Level 24 Anion Gap 18 H Blood Urea Nitrogen 17 Creatinine 1.30 H Glucose Level 136 Hemoglobin A1c 7.3 H Calcium Level 9.3 Phosphorus Level 4.7 Magnesium Level 1.9 Total Bilirubin 1.2 Direct Bilirubin 0.00 Indirect Bilirubin 1.2 H Aspartate Amino Transf (AST/SGOT) 113 H Alanine Aminotransferase (ALT/SGPT) 50 Alkaline Phosphatase 65 Total Protein 7.8 Albumin 4.0 Globulin 3.80 H Albumin/Globulin Ratio 1.05 Triglycerides Level 290 H Cholesterol Level 204 H LDL Cholesterol, Calculated 130 HDL Cholesterol 16 L Cholesterol/HDL Ratio 12.7 Test 09/10/17 07:49 09/10/17 11:57 09/10/17 12:58 09/10/17 16:43 Bedside Glucose 133 173 164 162 Medications Medications Current Medications Enoxaparin Sodium (Lovenox) 40 mg DAILY SC Last administered on 09/10/17 08: 12; Admin Dose 40 MG; Start 09/10/17 at 09:00 Morphine Sulfate (morphine) 2 mg Q2H PRN IV FOR NON CARDIAC PAIN (4-10); Start 09/09/17 at 16:00 Clopidogrel Bisulfate (plaVIX) 75 mg DAILY PO Last administered on 09/10/17 08:10; Admin Dose 75 MG; Start 09/10/17 at 09:00 Aspirin (Aspirin) 81 mg DAILY PO ; Start 09/10/17 at 09:00 Atorvastatin Calcium (Lipitor) 80 mg QHS PO Last administered on 09/09/17 21: 51; Admin Dose 80 MG; Start 09/09/17 at 21:00 Metoprolol Tartrate (Lopressor) 25 mg BID PO Last administered on 09/10/17 08 :18; Admin Dose 25 MG; Start 09/09/17 at 21:00 Diagnostic Test (Pha) (Accu-Chek) 1 ea 02 XX ; Start 09/10/17 at 02:00 Miscellaneous Information 1 ea NOTE XX ; Start 09/09/17 at 18:00 Glucose (Glutose) 15 gm Q15M PRN PO DECREASED GLUCOSE; Start 09/09/17 at 18:00 Glucose (Glutose) 22.5 gm Q15M PRN PO DECREASED GLUCOSE; Start 09/09/17 at 18: 00 Dextrose (D50w Syringe) 25 ml Q15M PRN IV DECREASED GLUCOSE; Start 09/09/17 at 18:00 Dextrose (D50w Syringe) 50 ml Q15M PRN IV DECREASED GLUCOSE; Start 09/09/17 at 18:00 Glucagon (Glucagen) 1 mg Q15M PRN IM DECREASED GLUCOSE; Start 09/09/17 at 18: 00 Glucose (Glutose) 15 gm Q15M PRN BUCCAL DECREASED GLUCOSE; Start 09/09/17 at 18:00 Lorazepam (Ativan) 0.5 mg Q6H PRN PO ANXIETY; Start 09/09/17 at 18:30 Warfarin Sodium (Coumadin) 5 mg DAILY@17 PO Last administered on 09/10/17 16: 46; Admin Dose 5 MG; Start 09/10/17 at 17:00 ADRIAN WHEELER MD Sep 10, 2017 19:33
[2017-09-10] MEDS: ATORVASTATIN 80 MG TAB PO SCH (21:03)
[2017-09-10] MEDS: LORAZEPAM 0.5 MG TAB PO PRN (22:34)
[2017-09-11] VITALS (12 sets, daily range): BP systolic 96–131; BP diastolic 55–70; PULSE 71–118; RESP 18–20
[2017-09-11] MEDS: ACCU-CHEK XX SCH (02:56)
[2017-09-11 08:05] LABS: ABNORMAL IP MESSAGE 1; BASOPHIL # 0.1 10^3/ul (0.0-0.1); BASOPHILS % 0.5 % (0.0-2.0); EOSINOPHILS # 0.2 10^3/ul (0.0-0.5); EOSINOPHILS % 1.6 % (0.0-7.0); HEMATOCRIT 28.6 % (42.0-52.0); HEMOGLOBIN 9.1 g/dl (14.0-18.0); LYMPHOCYTES % 19.9 % (15.0-51.0); MEAN CORPUSCULAR HEMOGLOBIN 26.3 pg (29.0-33.0); MEAN CORPUSCULAR HGB CONC 31.8 g/dl (32.0-37.0); MEAN CORPUSCULAR VOLUME 82.7 fl (82.0-101.0); MEAN PLATELET VOLUME 10.6 fl (7.4-10.4); MONOCYTE # 0.9 10^3/ul (0.3-0.9); MONOCYTES % 8.9 % (0.0-11.0); NEUTROPHIL # 6.5 10^3/ul (1.6-7.5); NEUTROPHILS % 66.4 % (39.0-77.0); POSITIVE DIFF @See below; RED BLOOD COUNT 3.46 10^6/ul (4.70-6.10); RED CELL DISTRIBUTION WIDTH 14.4 % (11.5-14.5); WHITE BLOOD COUNT 9.9 10^3/ul (4.8-10.8)
[2017-09-11 08:19] LABS: INR 1.08; PT RATIO 1.1
[2017-09-11] MEDS: CLOPIDOGREL 75 MG TAB PO SCH (08:23)
[2017-09-11] MEDS: ASPIRIN 81 MG TAB PO SCH (08:23)
[2017-09-11 08:25] LABS: ALBUMIN 3.5 g/dl (3.3-4.9); ALBUMIN/GLOBULIN RATIO 1.02; BILIRUBIN,INDIRECT 0.5 mg/dl (0-1.1); BILIRUBIN,TOTAL 0.5 mg/dl (0.2-1.3); CALCIUM 8.8 mg/dl (8.4-10.2); CREATININE 1.47 mg/dl (0.61-1.24); POTASSIUM 4.3 mmol/L (3.5-5.1); TOTAL PROTEIN 6.9 g/dl (6.1-8.1)
[2017-09-11] MEDS: INSULIN ASPART [NOVOLOG] 3 ML PEN SC SCH ×7 (08:32→21:27)
[2017-09-11] MEDS: METOPROLOL 25 MG TAB PO SCH ×2 (08:36→21:25)
[2017-09-11 08:50] LABS: ANISOCYTOSIS 3+ (0-0); EOSINOPHILS % (M) 1 % (0-7); MICROCYTOSIS 3+ (0-0); MONOCYTES % (M) 9 % (0-11); MYELOCYTES % (M) 1 % (0-0); PLATELET ESTIMATE SIG DECREASED; POLYCHROMASIA 1+ (0-0)
[2017-09-11 09:38] LABS: PLATELET COUNT 37 10^3/UL (140-415)
--- NOTE | 2017-09-11 15:42 | PN ---
Date/Time of Note Date/Time of Note DATE: 09/11/17 TIME: 15:41 Assessment/Plan VTE Prophylaxis VTE Prophylaxis Intervention: other Lines/Catheters IV C[facility]ter Type (from [facility] Saline Lock Urinary Cath still in place: No Assessment/Plan Chief Complaint/Hosp Course 67 yo male with h/o CAD adn s/p bioprosthetic AV and CABG two weeks ago who presented with NSTEMI of vein graft, s/p PCI - Continue aspirin, plavix, and statin for CAD w stent - Coumadin for bioprosthesis Thrombocytopenia: - Unclear etiology, perhaps HIT, have sent Ab, hold heparin products - Trend - Will need to consider stopping AC if continues - Hematology evaluation per Dr English DMII: - Continue basal/bolus insulin CHANO - monitor Dispo likely tomorrow Problems: Subjective 24 Hr Interval Summary Free Text/Dictation Worsening thrombocytopenia, unclear etiology No symptoms, feels well Exam/Review of Systems Vital Signs Vitals Vital Signs Date Time Temp Pulse Resp B/P Pulse Ox O2 Delivery O2 Flow Rate FiO2 09/11/17 15:08 99.2 91 18 120/70 97 09/10/17 18:01 Room Air 09/09/17 14:11 2 Intake and Output 09/10/17 09/10/17 09/11/17 15:00 23:00 07:00 Intake Total 550 ml 500 ml Balance 550 ml 500 ml Exam Constitutional: alert, oriented, well developed Psych: nl mood/affect, no complaints Head: atraumatic, normocephalic Eyes: EOMI, PERRL, nl conjunctiva, nl lids, nl sclera ENMT: nl external ears & nose, nl lips & teeth, nl nasal mucosa & septum Neck: non-tender, supple Respiratory: clear to auscultation, normal air movement Cardiovascular: nl pulses, regular rate and rhythm Gastrointestinal: nl liver, spleen, non-tender, soft Musculoskeletal: nl extremities to inspection, nl gait and stance Extremities: normal pulses Neurological: HELMET COVERER II-XII intact, nl mental status, nl speech, nl strength Skin: nl turgor, No rash or lesions Lymph: nl lymph nodes Results Result Diagram: 09/11/17 0723 09/11/17 0723 Results 24 hrs Laboratory Tests Test 09/10/17 16:43 09/10/17 20:44 09/11/17 01:34 09/11/17 07:23 Bedside Glucose 162 195 174 White Blood Count 9.9 Red Blood Count 3.46 L Hemoglobin 9.1 L Hematocrit 28.6 L Mean Corpuscular Volume 82.7 Mean Corpuscular Hemoglobin 26.3 L Mean Corpuscular Hemoglobin Concent 31.8 L Red Cell Distribution Width 14.4 Platelet Count 37 L Mean Platelet Volume 10.6 H Neutrophils % 66.4 Segmented Neutrophils % (Manual) 61 Band Neutrophils % (Manual) 3 Lymphocytes % 19.9 Lymphocytes % (Manual) 25 Monocytes % 8.9 Monocytes % (Manual) 9 Eosinophils % 1.6 Eosinophils % (Manual) 1 Basophils % 0.5 Myelocytes % (Manual) 1 H Nucleated Red Blood Cells % 0.0 Neutrophils # 6.5 Neutrophils # (Manual) 6.1 Band Neutrophils # 0.2 Absolute Lymphocytes (Manual) 2.4 Lymphocytes # 2.0 Monocytes # 0.9 Absolute Monocytes (Manual) 0.8 Eosinophils # 0.2 Basophils # 0.1 Myelocytes # 0.0 Nucleated Red Blood Cells # 0.0 Platelet Estimate SIG DECREASED Polychromasia 1+ Anisocytosis 3+ Microcytosis 3+ Prothrombin Time 14.0 Prothrombin Time Ratio 1.1 INR International Normalized Ratio 1.08 Sodium Level 139 Potassium Level 4.3 Chloride Level 104 Carbon Dioxide Level 24 Anion Gap 15 Blood Urea Nitrogen 29 #H Creatinine 1.47 H Glucose Level 158 Calcium Level 8.8 Total Bilirubin 0.5 Direct Bilirubin 0.00 Indirect Bilirubin 0.5 Aspartate Amino Transf (AST/SGOT) 56 #H Alanine Aminotransferase (ALT/SGPT) 51 Alkaline Phosphatase 59 Total Protein 6.9 Albumin 3.5 Globulin 3.40 H Albumin/Globulin Ratio 1.02 Test 09/11/17 08:21 09/11/17 12:12 Bedside Glucose 164 148 Medications Medications Current Medications Morphine Sulfate (morphine) 2 mg Q2H PRN IV FOR NON CARDIAC PAIN (4-10); Start 09/09/17 at 16:00 Clopidogrel Bisulfate (plaVIX) 75 mg DAILY PO Last administered on 09/11/17 08:23; Admin Dose 75 MG; Start 09/10/17 at 09:00 Aspirin (Aspirin) 81 mg DAILY PO Last administered on 09/11/17 08:23; Admin Dose 81 MG; Start 09/10/17 at 09:00 Atorvastatin Calcium (Lipitor) 80 mg QHS PO Last administered on 09/10/17 21: 03; Admin Dose 80 MG; Start 09/09/17 at 21:00 Metoprolol Tartrate (Lopressor) 25 mg BID PO Last administered on 09/10/17 08 :18; Admin Dose 25 MG; Start 09/09/17 at 21:00 Diagnostic Test (Pha) (Accu-Chek) 1 ea 02 XX Last administered on 09/11/17 02 :56; Admin Dose 1 EA; Start 09/10/17 at 02:00 Miscellaneous Information 1 ea NOTE XX ; Start 09/09/17 at 18:00 Glucose (Glutose) 15 gm Q15M PRN PO DECREASED GLUCOSE; Start 09/09/17 at 18:00 Glucose (Glutose) 22.5 gm Q15M PRN PO DECREASED GLUCOSE; Start 09/09/17 at 18: 00 Dextrose (D50w Syringe) 25 ml Q15M PRN IV DECREASED GLUCOSE; Start 09/09/17 at 18:00 Dextrose (D50w Syringe) 50 ml Q15M PRN IV DECREASED GLUCOSE; Start 09/09/17 at 18:00 Glucagon (Glucagen) 1 mg Q15M PRN IM DECREASED GLUCOSE; Start 09/09/17 at 18: 00 Glucose (Glutose) 15 gm Q15M PRN BUCCAL DECREASED GLUCOSE; Start 09/09/17 at 18:00 Lorazepam (Ativan) 0.5 mg Q6H PRN PO ANXIETY Last administered on 09/10/17 22 :34; Admin Dose 0.5 MG; Start 09/09/17 at 18:30 Warfarin Sodium (Coumadin) 5 mg DAILY@17 PO Last administered on 09/10/17 16: 46; Admin Dose 5 MG; Start 09/10/17 at 17:00 ADRIAN WHEELER MD Sep 11, 2017 15:42
[2017-09-11] MEDS ORDERED: FONDAPARINUX 2.5 MG SYG SC SCH ×2 (16:00→16:45)
[2017-09-11] MEDS ORDERED: FONDAPARINUX 10 MG/0.8 ML SC SCH (16:45)
[2017-09-11] MEDS: WARFARIN 5 MG TAB PO SCH (17:04)
[2017-09-11] MEDS ORDERED: FONDAPARINUX 7.5 MG SYG SC SCH (18:00)
[2017-09-11] MEDS: LORAZEPAM 0.5 MG TAB PO PRN (21:24)
[2017-09-11] MEDS: ATORVASTATIN 80 MG TAB PO SCH (21:24)
[2017-09-12] VITALS (11 sets, daily range): BP systolic 107–134; BP diastolic 50–80; PULSE 82–90; RESP 18–19
[2017-09-12] MEDS: ACCU-CHEK XX SCH (02:00)
[2017-09-12 06:29] LABS: HAAIG REFLEX REFLEX FILED
[2017-09-12 06:34] LABS: ABNORMAL IP MESSAGE 1; BASOPHIL # 0.1 10^3/ul (0.0-0.1); BASOPHILS % 0.6 % (0.0-2.0); EOSINOPHILS # 0.2 10^3/ul (0.0-0.5); EOSINOPHILS % 1.5 % (0.0-7.0); HEMATOCRIT 30.5 % (42.0-52.0); LYMPHOCYTES # 2.2 10^3/ul (0.8-2.9); LYMPHOCYTES % 20.3 % (15.0-51.0); MEAN CORPUSCULAR HEMOGLOBIN 27.5 pg (29.0-33.0); MEAN CORPUSCULAR HGB CONC 32.8 g/dl (32.0-37.0); MEAN PLATELET VOLUME 11.1 fl (7.4-10.4); MONOCYTE # 0.9 10^3/ul (0.3-0.9); MONOCYTES % 7.8 % (0.0-11.0); NEUTROPHIL # 7.2 10^3/ul (1.6-7.5); NEUTROPHILS % 66.3 % (39.0-77.0); NUCLEATED RED BLOOD CELLS% 0.2 /100WBC (0.0-0.0); POSITIVE DIFF @See below; RED BLOOD COUNT 3.63 10^6/ul (4.70-6.10); RED CELL DISTRIBUTION WIDTH 14.3 % (11.5-14.5); WHITE BLOOD COUNT 10.9 10^3/ul (4.8-10.8)
[2017-09-12 06:53] LABS: INR 1.16; PROTIME 14.9 Sec (12.2-14.2); PT RATIO 1.2
[2017-09-12 07:08] LABS: ALBUMIN 3.8 g/dl (3.3-4.9); BILIRUBIN,INDIRECT 0.4 mg/dl (0-1.1); BILIRUBIN,TOTAL 0.4 mg/dl (0.2-1.3); CALCIUM 9.1 mg/dl (8.4-10.2); CREATININE 1.37 mg/dl (0.61-1.24); POTASSIUM 4.2 mmol/L (3.5-5.1); TOTAL PROTEIN 7.6 g/dl (6.1-8.1)
[2017-09-12 07:18] LABS: PLATELET COUNT 51 10^3/UL (140-415)
[2017-09-12 07:46] LABS: HEPATITIS B CORE ANTIBODY NEGATIVE (NEGATIVE)
[2017-09-12] MEDS: ASPIRIN 81 MG TAB PO SCH (08:48)
[2017-09-12] MEDS: METOPROLOL 25 MG TAB PO SCH ×2 (08:48→21:44)
[2017-09-12] MEDS: CLOPIDOGREL 75 MG TAB PO SCH (08:48)
[2017-09-12] MEDS: INSULIN ASPART [NOVOLOG] 3 ML PEN SC SCH ×7 (08:52→21:54)
[2017-09-12] MEDS: FONDAPARINUX 7.5 MG SYG SC SCH (08:52)
--- NOTE | 2017-09-12 14:17 | CONS ---
Date/Time of Note Date/Time of Note DATE: 09/12/17 TIME: 14:12 Assessment/Plan Assessment/Plan Chief Complaint/Hosp Course Inferoposterior STEMI: s/p PCI of 99% ostial LM and 99% SVG-RCA. In discussion with Dr. Castro who did the surgery, there was no left main disease so there is concern for thrombotic occlusion of both the LM and vein graft and we should consider anticoagulation. EF remains preserved on echo. Acute diastolic heart failure: EF preserved. Due to MA. Mild -mod CHF by exam. Thrombocytopenia: Plts had been downtrending, now improving. Concern for HIT, antibody pending. CAD s/p CABG 09/02/2017: CARTWRIGHT-LAD patent, SVG-diag patent, s/p PCI of SVG-RCA CKD: Relatively stable Bio AVR 09/02/2017: valve was not crossed. Normal function by echo. Tobacco use -add lasix 20mg IV BID for now as decompensated by exam and symptomatic -ASA 81mg -plavix 75mg -ok to stop coumadin until thrombocytopenia is better addressed. -lipitor 80mg -metoprolol 25mg -ACEI if renal function remains stable Problems: Consultation Date/Type/Reason Admit Date/Time Sep 09, 2017 at 15:37 Initial Consult Date 09/09/17 Type of Consultation: Cardiology Referring Provider: DELMA LUONG DO 24 HR Interval Summary Free Text/Dictation Now alert. Still uncooperative at times. Does not want tele. He has been more SOB but no chest pain. Exam/Review of Systems Vital Signs Vitals Vital Signs Date Time Temp Pulse Resp B/P Pulse Ox O2 Delivery O2 Flow Rate FiO2 09/12/17 11:29 97.9 83 18 113/65 96 09/10/17 18:01 Room Air 09/09/17 14:11 2 Intake and Output 09/11/17 09/11/17 09/12/17 15:00 23:00 07:00 Intake Total 400 ml Output Total 3 ml Balance 397 ml Exam Constitutional: alert, oriented, No distress Psych: no complaints Head: atraumatic, normocephalic Neck: jvd (10cm) Respiratory: crackles/rales, diminished breath sounds, No clear to auscultation Cardiovascular: regular rate and rhythm, systolic murmur (2/6 SHANAE), No edema Gastrointestinal: non-tender, soft Neurological: nl mental status, nl speech Results Result Diagram: 09/12/17 0606 09/12/17 0606 Results 24 hrs Laboratory Tests Test 09/11/17 17:02 09/11/17 20:38 09/12/17 02:11 09/12/17 06:06 Bedside Glucose 136 194 179 White Blood Count 10.9 H Red Blood Count 3.63 L Hemoglobin 10.0 L Hematocrit 30.5 L Mean Corpuscular Volume 84.0 Mean Corpuscular Hemoglobin 27.5 L Mean Corpuscular Hemoglobin Concent 32.8 Red Cell Distribution Width 14.3 Platelet Count 51 #L Mean Platelet Volume 11.1 H Neutrophils % 66.3 Lymphocytes % 20.3 Monocytes % 7.8 Eosinophils % 1.5 Basophils % 0.6 Nucleated Red Blood Cells % 0.2 H Neutrophils # 7.2 Lymphocytes # 2.2 Monocytes # 0.9 Eosinophils # 0.2 Basophils # 0.1 Nucleated Red Blood Cells # 0.0 Prothrombin Time 14.9 H Prothrombin Time Ratio 1.2 INR International Normalized Ratio 1.16 Sodium Level 140 Potassium Level 4.2 Chloride Level 106 Carbon Dioxide Level 23 Anion Gap 15 Blood Urea Nitrogen 27 H Creatinine 1.37 H Glucose Level 149 Calcium Level 9.1 Total Bilirubin 0.4 Direct Bilirubin 0.00 Indirect Bilirubin 0.4 Aspartate Amino Transf (AST/SGOT) 50 H Alanine Aminotransferase (ALT/SGPT) 60 Alkaline Phosphatase 66 Total Protein 7.6 Albumin 3.8 Globulin 3.80 H Albumin/Globulin Ratio 1.00 Hepatitis B Surface Antigen NEGATIVE Hepatitis B Core Total Antibody NEGATIVE Hepatitis C Antibody NEGATIVE Test 09/12/17 08:41 09/12/17 12:12 Bedside Glucose 167 159 Medications Medications Current Medications Morphine Sulfate (morphine) 2 mg Q2H PRN IV FOR NON CARDIAC PAIN (4-10); Start 09/09/17 at 16:00 Clopidogrel Bisulfate (plaVIX) 75 mg DAILY PO Last administered on 09/12/17 08:48; Admin Dose 75 MG; Start 09/10/17 at 09:00 Aspirin (Aspirin) 81 mg DAILY PO Last administered on 09/12/17 08:48; Admin Dose 81 MG; Start 09/10/17 at 09:00 Atorvastatin Calcium (Lipitor) 80 mg QHS PO Last administered on 09/11/17 21: 24; Admin Dose 80 MG; Start 09/09/17 at 21:00 Metoprolol Tartrate (Lopressor) 25 mg BID PO Last administered on 09/12/17 08 :48; Admin Dose 25 MG; Start 09/09/17 at 21:00 Diagnostic Test (Pha) (Accu-Chek) 1 ea 02 XX Last administered on 09/12/17 02 :00; Admin Dose 1 EA; Start 09/10/17 at 02:00 Miscellaneous Information 1 ea NOTE XX ; Start 09/09/17 at 18:00 Glucose (Glutose) 15 gm Q15M PRN PO DECREASED GLUCOSE; Start 09/09/17 at 18:00 Glucose (Glutose) 22.5 gm Q15M PRN PO DECREASED GLUCOSE; Start 09/09/17 at 18: 00 Dextrose (D50w Syringe) 25 ml Q15M PRN IV DECREASED GLUCOSE; Start 09/09/17 at 18:00 Dextrose (D50w Syringe) 50 ml Q15M PRN IV DECREASED GLUCOSE; Start 09/09/17 at 18:00 Glucagon (Glucagen) 1 mg Q15M PRN IM DECREASED GLUCOSE; Start 09/09/17 at 18: 00 Glucose (Glutose) 15 gm Q15M PRN BUCCAL DECREASED GLUCOSE; Start 09/09/17 at 18:00 Lorazepam (Ativan) 0.5 mg Q6H PRN PO ANXIETY Last administered on 09/11/17 21 :24; Admin Dose 0.5 MG; Start 09/09/17 at 18:30 Warfarin Sodium (Coumadin) 5 mg DAILY@17 PO Last administered on 09/11/17 17: 04; Admin Dose 5 MG; Start 09/10/17 at 17:00 Fondaparinux (Arixtra) 2.5 mg DAILY SC Last administered on 09/12/17 08:52; Admin Dose 2.5 MG; Start 09/11/17 at 16:45 ASHLEY HENLEY Sep 12, 2017 14:17
--- NOTE | 2017-09-12 15:55 | RADRPT ---
PROCEDURE: XR Chest. CLINICAL INDICATION: Shortness of breath. TECHNIQUE: Single frontal view. COMPARISON: 09/09/2017. FINDINGS: There is mild left basilar atelectasis, worse than seen previously. The lungs are otherwise clear. The heart is enlarged. There are sternal wires. There is calcification in the aorta consistent with atherosclerosis. There is no pleural effusion. There is no pneumothorax. IMPRESSION: 1. Left basilar atelectasis, worse than seen previously. 2. No other change from 09/09/2017. RPTAT: QQ .Dank Nicole MD, MD Date Time Electronically viewed and signed by .Dank Nicole MD, MD on 09/12/2017 15:55 .R/
[2017-09-12] MEDS: FUROSEMIDE 20 MG INJ IV SCH ×2 (17:41→21:43)
[2017-09-12] MEDS: WARFARIN 5 MG TAB PO SCH (17:46)
--- NOTE | 2017-09-12 18:01 | PN ---
Date/Time of Note Date/Time of Note DATE: 09/12/17 TIME: 17:46 Assessment/Plan VTE Prophylaxis VTE Prophylaxis Intervention: other Lines/Catheters IV C[facility] Type [facility]from [facility] [place] [facility] Urinary Cath still in place: No Assessment/Plan Chief Complaint/Hosp Course 1. STEMI s/p PCI of ostial LM and SVG-RCA There is concern for thrombotic occlusion of both the LM and vein graft and hence anticoagulation has been initiated EF remains preserved on echo Continue aspirin, Plavix, beta-maxime and statin ACEI if renal function remains stable 2. Acute diastolic heart failure: EF preserved-decompensated Continue Lasix 3. Thrombocytopenia-improved HIT antibody pending Hematology consultation appreciated Coumadin held 4. CAD s/p CABG and bio AVR 09/02/2017: CARTWRIGHT-LAD patent, SVG-diag patent, s/p PCI of SVG-RCA 5. CKD-stable 6. Tobacco abuse Advise cessation Problems: Subjective 24 Hr Interval Summary Constitutional: no complaints Exam/Review of Systems Vital Signs Vitals Vital Signs Date Time Temp Pulse Resp B/P Pulse Ox O2 Delivery O2 Flow Rate FiO2 09/12/17 16:41 82 09/12/17 15:52 97.6 18 134/67 95 09/10/17 18:01 Room Air 09/09/17 14:11 2 Intake and Output 09/11/17 09/11/17 09/12/17 15:00 23:00 07:00 Intake Total 400 ml Output Total 3 ml Balance 397 ml Exam Constitutional: alert Respiratory: clear to auscultation Cardiovascular: regular rate and rhythm Gastrointestinal: soft, No distended Musculoskeletal: nl extremities to inspection Results Result Diagram: 09/12/17 0606 09/12/17 0606 Results 24 hrs Laboratory Tests Test 09/11/17 20:38 09/12/17 02:11 09/12/17 06:06 09/12/17 08:41 Bedside Glucose 194 179 167 White Blood Count 10.9 H Red Blood Count 3.63 L Hemoglobin 10.0 L Hematocrit 30.5 L Mean Corpuscular Volume 84.0 Mean Corpuscular Hemoglobin 27.5 L Mean Corpuscular Hemoglobin Concent 32.8 Red Cell Distribution Width 14.3 Platelet Count 51 #L Mean Platelet Volume 11.1 H Neutrophils % 66.3 Lymphocytes % 20.3 Monocytes % 7.8 Eosinophils % 1.5 Basophils % 0.6 Nucleated Red Blood Cells % 0.2 H Neutrophils # 7.2 Lymphocytes # 2.2 Monocytes # 0.9 Eosinophils # 0.2 Basophils # 0.1 Nucleated Red Blood Cells # 0.0 Prothrombin Time 14.9 H Prothrombin Time Ratio 1.2 INR International Normalized Ratio 1.16 Sodium Level 140 Potassium Level 4.2 Chloride Level 106 Carbon Dioxide Level 23 Anion Gap 15 Blood Urea Nitrogen 27 H Creatinine 1.37 H Glucose Level 149 Calcium Level 9.1 Total Bilirubin 0.4 Direct Bilirubin 0.00 Indirect Bilirubin 0.4 Aspartate Amino Transf (AST/SGOT) 50 H Alanine Aminotransferase (ALT/SGPT) 60 Alkaline Phosphatase 66 Total Protein 7.6 Albumin 3.8 Globulin 3.80 H Albumin/Globulin Ratio 1.00 Hepatitis B Surface Antigen NEGATIVE Hepatitis B Core Total Antibody NEGATIVE Hepatitis C Antibody NEGATIVE Test 09/12/17 12:12 09/12/17 17:44 Bedside Glucose 159 115 Medications Medications Current Medications Morphine Sulfate (morphine) 2 mg Q2H PRN IV FOR NON CARDIAC PAIN (4-10); Start 09/09/17 at 16:00 Clopidogrel Bisulfate (plaVIX) 75 mg DAILY PO Last administered on 09/12/17 08:48; Admin Dose 75 MG; Start 09/10/17 at 09:00 Aspirin (Aspirin) 81 mg DAILY PO Last administered on 09/12/17 08:48; Admin Dose 81 MG; Start 09/10/17 at 09:00 Atorvastatin Calcium (Lipitor) 80 mg QHS PO Last administered on 09/11/17 21: 24; Admin Dose 80 MG; Start 09/09/17 at 21:00 Metoprolol Tartrate (Lopressor) 25 mg BID PO Last administered on 09/12/17 08 :48; Admin Dose 25 MG; Start 09/09/17 at 21:00 Diagnostic Test (Pha) (Accu-Chek) 1 ea 02 XX Last administered on 09/12/17 02 :00; Admin Dose 1 EA; Start 09/10/17 at 02:00 Miscellaneous Information 1 ea NOTE XX ; Start 09/09/17 at 18:00 Glucose (Glutose) 15 gm Q15M PRN PO DECREASED GLUCOSE; Start 09/09/17 at 18:00 Glucose (Glutose) 22.5 gm Q15M PRN PO DECREASED GLUCOSE; Start 09/09/17 at 18: 00 Dextrose (D50w Syringe) 25 ml Q15M PRN IV DECREASED GLUCOSE; Start 09/09/17 at 18:00 Dextrose (D50w Syringe) 50 ml Q15M PRN IV DECREASED GLUCOSE; Start 09/09/17 at 18:00 Glucagon (Glucagen) 1 mg Q15M PRN IM DECREASED GLUCOSE; Start 09/09/17 at 18: 00 Glucose (Glutose) 15 gm Q15M PRN BUCCAL DECREASED GLUCOSE; Start 09/09/17 at 18:00 Lorazepam (Ativan) 0.5 mg Q6H PRN PO ANXIETY Last administered on 09/11/17 21 :24; Admin Dose 0.5 MG; Start 09/09/17 at 18:30 Warfarin Sodium (Coumadin) 5 mg DAILY@17 PO Last administered on 09/11/17 17: 04; Admin Dose 5 MG; Start 09/10/17 at 17:00 Fondaparinux (Arixtra) 2.5 mg DAILY SC Last administered on 09/12/17 08:52; Admin Dose 2.5 MG; Start 09/11/17 at 16:45 TATI COULTER Sep 12, 2017 18:00
[2017-09-12 18:36] LABS: PLATELET COUNT 62 10^3/UL (140-415)
[2017-09-12 19:03] LABS: INR 1.16; PROTIME 14.8 Sec (12.2-14.2); PT RATIO 1.2
[2017-09-12 19:04] LABS: PARTIAL THROMBOPLASTIN TIME 47.8 Sec (25.0-35.0)
[2017-09-12 19:25] LABS: FIBRIN SPLIT PRODUCT >10 and <40 ug/ml (<10)
[2017-09-12 19:38] LABS: D-DIMER 5912.25 ng/ml (<460)
--- NOTE | 2017-09-12 20:07 | CONS ---
Date/Time of Note Date/Time of Note DATE: 09/12/17 TIME: 20:04 Assessment/Plan Assessment/Plan Chief Complaint/Hosp Course 67 yo with #Thrombocytopenia -clinically this is most consistent with HIT which usually starts 5 to 10 days after exposure to heparin which would be the day of patient's CABG. In this patient case his thrombocytopenia began prior to admission and now appears to be finally improving now that exposure to heparin has been stopped -will need to closely monitor for clotting as well as HIT patient are known to be thrombogenic despite the thrombocytopenia -will f/u HIT panel -will check LDH to r/o TTP. check DIC panel -review peripheral smear -avoid all heparin based products. If patient needs heparin would recommend Arixtra #CHF -management per cardiology -continue diuresis with lasix 20mg IV BID #s/p CABG -cont ASA 81, Plavix 75, Lipitor 80, and MTP 35 mg po BID -given likelihood of HIT Coumadin will be ok to start once platelet count stabilizes #CHANO -cardiorenal -continue to monitor Creatinine Problems: Consultation Date/Type/Reason Admit Date/Time Sep 09, 2017 at 15:37 Date of Consultation: Sep 12, 2017 Type of Consultation: Hematology Reason for Consultation thrombocytopenia Referring Provider: TATI COULTER of Present Illness 67-year-old male with multiple medical problems including essential hypertension, diabetes mellitus, dyslipidemia, and CAD who is status post CABG 3 along with bioprosthetic aortic valve replacement on 09/02/2017 at [facility]. 1 week post discharge from [place] patient presented to [facility] with chest pain in the middle portion of his chest associated with nausea. Patient was discovered to be suffering from a STEMI. Pt was taken to the labelling machine operator and was found to have ostial 99% left main blockage and SVG-RCA graft 99% blockage. On 09/09 the patient underwent a balloon angioplasty and stenting of the ostial left main with a Synergy 4.0 x 12 stent along with balloon angioplasty and stenting of the mid SVG-RCA with a Synergy 4.0 x 12 stent with distal embolic protection. Since PCI platelets have been steadily declining from 80 down to 37. They are now at 50K. Upon review of labs from [place], patients platelets were within normal range on 08/05/17 when they were 254. On 09/02 they were down to 141 then continued to decline post op to 109 on 09/04. On day of discharge 09/05 when they were 161. PT currently has no signs of bleeding. He is recovering from his PCI well. Constitutional: no complaints Eyes: no complaints ENT: no complaints Respiratory: shortness of breath Cardiovascular: chest pain Gastrointestinal: no complaints Genitourinary: no complaints Musculoskeletal: no complaints Skin: no complaints Neurologic: no complaints Lymphatic: no complaints Psychological: no complaints Immunologic: no complaints Past Medical History Medical History: coronary artery disease, diabetes, hypertension Past Surgical History Past Surgical Hx: coronary bypass surgery (On 09/02/2017: CARTWRIGHT-LAD , SVG-diag , SVG-RCA), other (AVR bioprosthetic Valve on 09/02/2017) Family History Significant Family History: no pertinent family hx Social History Alcohol Use: none Smoking Status: Former smoker (50 pk year smoking history. just quit day prior to surgery) Drug Use: none Exam/Review of Systems Vital Signs Vitals Vital Signs Date Time Temp Pulse Resp B/P Pulse Ox O2 Delivery O2 Flow Rate FiO2 09/12/17 16:41 82 09/12/17 15:52 97.6 18 134/67 95 09/10/17 18:01 Room Air 09/09/17 14:11 2 Intake and Output 09/11/17 09/11/17 09/12/17 15:00 23:00 07:00 Intake Total 400 ml Output Total 3 ml Balance 397 ml Exam Constitutional: alert, oriented Psych: no complaints Head: normocephalic Eyes: nl conjunctiva ENMT: nl external ears & nose Neck: non-tender, supple Respiratory: other (sternotomy scar) Cardiovascular: regular rate and rhythm Gastrointestinal: soft Musculoskeletal: nl extremities to inspection, nl gait and stance Extremities: normal pulses Results Result Diagram: 09/12/17 0609/12/17 0606 Results 24 hrs Laboratory Tests Test 09/11/17 20:38 09/12/17 02:11 09/12/17 06:06 09/12/17 08:41 Bedside Glucose 194 179 167 White Blood Count 10.9 H Red Blood Count 3.63 L Hemoglobin 10.0 L Hematocrit 30.5 L Mean Corpuscular Volume 84.0 Mean Corpuscular Hemoglobin 27.5 L Mean Corpuscular Hemoglobin Concent 32.8 Red Cell Distribution Width 14.3 Platelet Count 51 #L Mean Platelet Volume 11.1 H Neutrophils % 66.3 Lymphocytes % 20.3 Monocytes % 7.8 Eosinophils % 1.5 Basophils % 0.6 Nucleated Red Blood Cells % 0.2 H Neutrophils # 7.2 Lymphocytes # 2.2 Monocytes # 0.9 Eosinophils # 0.2 Basophils # 0.1 Nucleated Red Blood Cells # 0.0 Prothrombin Time 14.9 H Prothrombin Time Ratio 1.2 INR International Normalized Ratio 1.16 Sodium Level 140 Potassium Level 4.2 Chloride Level 106 Carbon Dioxide Level 23 Anion Gap 15 Blood Urea Nitrogen 27 H Creatinine 1.37 H Glucose Level 149 Calcium Level 9.1 Total Bilirubin 0.4 Direct Bilirubin 0.00 Indirect Bilirubin 0.4 Aspartate Amino Transf (AST/SGOT) 50 H Alanine Aminotransferase (ALT/SGPT) 60 Alkaline Phosphatase 66 Total Protein 7.6 Albumin 3.8 Globulin 3.80 H Albumin/Globulin Ratio 1.00 Hepatitis B Surface Antigen NEGATIVE Hepatitis B Core Total Antibody NEGATIVE Hepatitis C Antibody NEGATIVE Test 09/12/17 12:12 09/12/17 17:44 09/12/17 18:05 Bedside Glucose 159 115 Platelet Count 62 L Prothrombin Time 14.8 H Prothrombin Time Ratio 1.2 INR International Normalized Ratio 1.16 Activated Partial Thromboplast Time 47.8 H Thrombin Time Pending Fibrinogen 449.0 Plasma Fibrin Degradation Products >10 and <40 H D-Dimer 5912.25 H D-Dimer Comment Lactate Dehydrogenase 1081 H Medications Medications Current Medications Morphine Sulfate (morphine) 2 mg Q2H PRN IV FOR NON CARDIAC PAIN (4-10); Start 09/09/17 at 16:00 Clopidogrel Bisulfate (plaVIX) 75 mg DAILY PO Last administered on 09/12/17 08:48; Admin Dose 75 MG; Start 09/10/17 at 09:00 Aspirin (Aspirin) 81 mg DAILY PO Last administered on 09/12/17 08:48; Admin Dose 81 MG; Start 09/10/17 at 09:00 Atorvastatin Calcium (Lipitor) 80 mg QHS PO Last administered on 09/11/17 21: 24; Admin Dose 80 MG; Start 09/09/17 at 21:00 Metoprolol Tartrate (Lopressor) 25 mg BID PO Last administered on 09/12/17 08 :48; Admin Dose 25 MG; Start 09/09/17 at 21:00 Diagnostic Test (Pha) (Accu-Chek) 1 ea 02 XX Last administered on 09/12/17 02 :00; Admin Dose 1 EA; Start 09/10/17 at 02:00 Miscellaneous Information 1 ea NOTE XX ; Start 09/09/17 at 18:00 Glucose (Glutose) 15 gm Q15M PRN PO DECREASED GLUCOSE; Start 09/09/17 at 18:00 Glucose (Glutose) 22.5 gm Q15M PRN PO DECREASED GLUCOSE; Start 09/09/17 at 18: 00 Dextrose (D50w Syringe) 25 ml Q15M PRN IV DECREASED GLUCOSE; Start 09/09/17 at 18:00 Dextrose (D50w Syringe) 50 ml Q15M PRN IV DECREASED GLUCOSE; Start 09/09/17 at 18:00 Glucagon (Glucagen) 1 mg Q15M PRN IM DECREASED GLUCOSE; Start 09/09/17 at 18: 00 Glucose (Glutose) 15 gm Q15M PRN BUCCAL DECREASED GLUCOSE; Start 09/09/17 at 18:00 Lorazepam (Ativan) 0.5 mg Q6H PRN PO ANXIETY Last administered on 09/11/17 21 :24; Admin Dose 0.5 MG; Start 09/09/17 at 18:30 Warfarin Sodium (Coumadin) 5 mg DAILY@17 PO Last administered on 09/11/17 17: 04; Admin Dose 5 MG; Start 09/10/17 at 17:00 Fondaparinux (Arixtra) 2.5 mg DAILY SC Last administered on 09/12/17 08:52; Admin Dose 2.5 MG; Start 09/11/17 at 16:45 PAOLA IBANEZ M.D. Sep 12, 2017 20:07
[2017-09-12 20:13] LABS: THROMBIN TIME 14.5 SEC (13.8-19.1)
[2017-09-12] MEDS: ATORVASTATIN 80 MG TAB PO SCH (21:43)
[2017-09-13] VITALS (9 sets, daily range): BP systolic 94–128; BP diastolic 53–76; PULSE 75–85; RESP 18
[2017-09-13] MEDS: ACCU-CHEK XX SCH (02:08)
[2017-09-13] MEDS: FUROSEMIDE 20 MG INJ IV SCH (05:30)
[2017-09-13] MEDS ORDERED: ACETAMINOPHEN 325 MG TAB PO PRN (06:30)
[2017-09-13 07:32] LABS: ABNORMAL IP MESSAGE 1; BASOPHIL # 0.1 10^3/ul (0.0-0.1); BASOPHILS % 0.6 % (0.0-2.0); EOSINOPHILS # 0.2 10^3/ul (0.0-0.5); EOSINOPHILS % 1.6 % (0.0-7.0); HEMATOCRIT 31.1 % (42.0-52.0); HEMOGLOBIN 10.2 g/dl (14.0-18.0); LYMPHOCYTES # 2.3 10^3/ul (0.8-2.9); LYMPHOCYTES % 19.9 % (15.0-51.0); MEAN CORPUSCULAR HEMOGLOBIN 27.3 pg (29.0-33.0); MEAN CORPUSCULAR HGB CONC 32.8 g/dl (32.0-37.0); MEAN CORPUSCULAR VOLUME 83.4 fl (82.0-101.0); MEAN PLATELET VOLUME 10.8 fl (7.4-10.4); MONOCYTE # 0.9 10^3/ul (0.3-0.9); MONOCYTES % 7.7 % (0.0-11.0); NEUTROPHIL # 7.7 10^3/ul (1.6-7.5); NEUTROPHILS % 67.6 % (39.0-77.0); NUCLEATED RED BLOOD CELLS% 0.3 /100WBC (0.0-0.0); PLATELET COUNT 71 10^3/UL (140-415); POSITIVE DIFF @See below; RED BLOOD COUNT 3.73 10^6/ul (4.70-6.10); RED CELL DISTRIBUTION WIDTH 14.6 % (11.5-14.5); WHITE BLOOD COUNT 11.4 10^3/ul (4.8-10.8)
[2017-09-13 07:48] LABS: CREATININE 1.25 mg/dl (0.61-1.24)
[2017-09-13 07:57] LABS: INR 1.16; PROTIME 14.9 Sec (12.2-14.2); PT RATIO 1.2
[2017-09-13] MEDS: CLOPIDOGREL 75 MG TAB PO SCH (08:45)
[2017-09-13] MEDS: ASPIRIN 81 MG TAB PO SCH (08:45)
[2017-09-13] MEDS: METOPROLOL 25 MG TAB PO SCH (08:45)
[2017-09-13] MEDS: INSULIN ASPART [NOVOLOG] 3 ML PEN SC SCH ×6 (08:47→17:26)
[2017-09-13] MEDS: FONDAPARINUX 7.5 MG SYG SC SCH (08:47)
--- NOTE | 2017-09-13 13:37 | CONS ---
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 In this patient case his thrombocytopenia began prior to admission and now appears to be finally improving now that exposure to heparin has been stopped -will need to closely monitor for clotting as well as HIT patient are known to be thrombogenic despite the thrombocytopenia -will f/u HIT panel -LDH is elevatee but peripheral smear does not demonstrate schistocytes. Therefore TTP is unlikely . furthermore if it was TTP the platelets would not spontaneously rise -cont Arixtra for DVT ppx #CHF -management per cardiology -continue diuresis with lasix 20mg IV BID #s/p CABG -cont ASA 81, Plavix 75, Lipitor 80, and MTP 35 mg po BID -given likelihood of HIT Coumadin is ok to continue as platelet count is stable > 50K #CHANO -cardiorenal -continue to monitor Creatinine Problems: Consultation Date/Type/Reason Admit Date/Time Sep 09, 2017 at 15:37 Initial Consult Date 09/12/17 Type of Consultation: Hematology Reason for Consultation thrombocytopenia, Referring Provider: TATI COULTER 24 HR Interval Summary Free Text/Dictation no acute overnight events. no bleeding. platelets continue to improve Exam/Review of Systems Vital Signs Vitals Vital Signs Date Time Temp Pulse Resp B/P Pulse Ox O2 Delivery O2 Flow Rate FiO2 09/13/17 12:40 75 09/13/17 11:28 97.5 18 99/67 97 09/10/17 18:01 Room Air 09/09/17 14:11 2 Intake and Output 09/12/17 09/12/17 09/13/17 15:00 23:00 07:00 Intake Total 840 ml 400 ml Balance 840 ml 400 ml Exam Constitutional: alert, oriented Psych: no complaints Head: normocephalic Eyes: nl conjunctiva Respiratory: clear to auscultation, normal air movement, other (sternotomy scar in place) Cardiovascular: regular rate and rhythm Gastrointestinal: soft Musculoskeletal: nl extremities to inspection Extremities: normal pulses Skin: nl turgor Results Result Diagram: 09/13/17 0650 09/13/17 0650 Results 24 hrs Laboratory Tests Test 09/12/17 17:44 09/12/17 18:05 09/12/17 21:46 09/13/17 01:39 Bedside Glucose 115 194 170 Platelet Count 62 L Prothrombin Time 14.8 H Prothrombin Time Ratio 1.2 INR International Normalized Ratio 1.16 Activated Partial Thromboplast Time 47.8 H Thrombin Time 14.5 Fibrinogen 449.0 Plasma Fibrin Degradation Products >10 and <40 H D-Dimer 5912.25 H D-Dimer Comment Lactate Dehydrogenase 1081 H Test 09/13/17 06:50 09/13/17 08:39 09/13/17 12:23 White Blood Count 11.4 H Red Blood Count 3.73 L Hemoglobin 10.2 L Hematocrit 31.1 L Mean Corpuscular Volume 83.4 Mean Corpuscular Hemoglobin 27.3 L Mean Corpuscular Hemoglobin Concent 32.8 Red Cell Distribution Width 14.6 H Platelet Count 71 #L Mean Platelet Volume 10.8 H Neutrophils % 67.6 Lymphocytes % 19.9 Monocytes % 7.7 Eosinophils % 1.6 Basophils % 0.6 Nucleated Red Blood Cells % 0.3 H Neutrophils # 7.7 H Lymphocytes # 2.3 Monocytes # 0.9 Eosinophils # 0.2 Basophils # 0.1 Nucleated Red Blood Cells # 0.0 Prothrombin Time 14.9 H Prothrombin Time Ratio 1.2 INR International Normalized Ratio 1.16 Sodium Level 141 Potassium Level 4.0 Chloride Level 106 Carbon Dioxide Level 24 Anion Gap 15 Blood Urea Nitrogen 24 H Creatinine 1.25 H Glucose Level 152 Calcium Level 9.0 Bedside Glucose 193 220 Medications Medications Current Medications Morphine Sulfate (morphine) 2 mg Q2H PRN IV FOR NON CARDIAC PAIN (4-10); Start 09/09/17 at 16:00 Clopidogrel Bisulfate (plaVIX) 75 mg DAILY PO Last administered on 09/13/17 08:45; Admin Dose 75 MG; Start 09/10/17 at 09:00 Aspirin (Aspirin) 81 mg DAILY PO Last administered on 09/13/17 08:45; Admin Dose 81 MG; Start 09/10/17 at 09:00 Atorvastatin Calcium (Lipitor) 80 mg QHS PO Last administered on 09/12/17 21: 43; Admin Dose 80 MG; Start 09/09/17 at 21:00 Metoprolol Tartrate (Lopressor) 25 mg BID PO Last administered on 09/13/17 08 :45; Admin Dose 25 MG; Start 09/09/17 at 21:00 Diagnostic Test (Pha) (Accu-Chek) 1 ea 02 XX Last administered on 09/13/17 02 :08; Admin Dose 1 EA; Start 09/10/17 at 02:00 Miscellaneous Information 1 ea NOTE XX ; Start 09/09/17 at 18:00 Glucose (Glutose) 15 gm Q15M PRN PO DECREASED GLUCOSE; Start 09/09/17 at 18:00 Glucose (Glutose) 22.5 gm Q15M PRN PO DECREASED GLUCOSE; Start 09/09/17 at 18: 00 Dextrose (D50w Syringe) 25 ml Q15M PRN IV DECREASED GLUCOSE; Start 09/09/17 at 18:00 Dextrose (D50w Syringe) 50 ml Q15M PRN IV DECREASED GLUCOSE; Start 09/09/17 at 18:00 Glucagon (Glucagen) 1 mg Q15M PRN IM DECREASED GLUCOSE; Start 09/09/17 at 18: 00 Glucose (Glutose) 15 gm Q15M PRN BUCCAL DECREASED GLUCOSE; Start 09/09/17 at 18:00 Lorazepam (Ativan) 0.5 mg Q6H PRN PO ANXIETY Last administered on 09/11/17 21 :24; Admin Dose 0.5 MG; Start 09/09/17 at 18:30 Warfarin Sodium (Coumadin) 5 mg DAILY@17 PO Last administered on 09/12/17 17: 46; Admin Dose 5 MG; Start 09/10/17 at 17:00 Fondaparinux (Arixtra) 2.5 mg DAILY SC Last administered on 09/13/17 08:47; Admin Dose 2.5 MG; Start 09/11/17 at 16:45 Acetaminophen (Tylenol Tab) 650 mg Q6H PRN PO PAIN AND OR ELEVATED TEMP Last administered on 09/13/17 06:50; Admin Dose 650 MG; Start 09/13/17 at 06:30 PAOLA IBANEZ M.D. Sep 13, 2017 13:37
--- NOTE | 2017-09-13 16:56 | CONS ---
Date/Time of Note Date/Time of Note DATE: 09/13/17 TIME: 16:51 Assessment/Plan Assessment/Plan Chief Complaint/Hosp Course Inferoposterior STEMI: s/p PCI of 99% ostial LM and 99% SVG-RCA. In discussion with Dr. Castro who did the surgery, there was no left main disease so there is concern for thrombotic occlusion of both the LM and vein graft and we should consider anticoagulation. EF remains preserved on echo. Acute diastolic heart failure: EF preserved. Due to TX. Improved with diuresis. 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 CAD s/p CABG 09/02/2017: CARTWRIGHT-LAD patent, SVG-diag patent, s/p PCI of SVG-RCA CKD: Relatively stable Bio AVR 09/02/2017: valve was not crossed. Normal function by echo. Tobacco use -discontinue Lasix -continue ASA 81mg and Plavix 75mg daily -hold warfarin for now, consider starting as outpatient once platelets normalize -resume benazepril at 5mg daily, up titrate as tolerated -continue metoprolol 25mg -continue Lipitor 80mg -stable for discharge from cardiac standpoint Problems: Consultation Date/Type/Reason Admit Date/Time Sep 09, 2017 at 15:37 Initial Consult Date 09/12/17 Type of Consultation: Cardiology 24 HR Interval Summary Free Text/Dictation No acute events. No chest pain or shortness of breath. No bleeding. Platelets improving. Detailed Summary Additional Comments 14 point review of systems without changes. Exam/Review of Systems Vital Signs Vitals Vital Signs Date Time Temp Pulse Resp B/P Pulse Ox O2 Delivery O2 Flow Rate FiO2 09/13/17 15:26 98.0 83 18 115/69 98 09/10/17 18:01 Room Air 09/09/17 14:11 2 Intake and Output 09/12/17 09/12/17 09/13/17 15:00 23:00 07:00 Intake Total 840 ml 400 ml Balance 840 ml 400 ml Exam Constitutional: alert, oriented, No distress Psych: no complaints Head: atraumatic, normocephalic Neck: jvd (10cm) Respiratory: crackles/rales, diminished breath sounds, No clear to auscultation Cardiovascular: regular rate and rhythm, systolic murmur (2/6 SHANAE), No edema Gastrointestinal: non-tender, soft Neurological: nl mental status, nl speech Results Result Diagram: 09/13/17 0650 09/13/17 0650 Results 24 hrs Laboratory Tests Test 09/12/17 17:44 09/12/17 18:05 09/12/17 21:46 09/13/17 01:39 Bedside Glucose 115 194 170 Platelet Count 62 L Prothrombin Time 14.8 H Prothrombin Time Ratio 1.2 INR International Normalized Ratio 1.16 Activated Partial Thromboplast Time 47.8 H Thrombin Time 14.5 Fibrinogen 449.0 Plasma Fibrin Degradation Products >10 and <40 H D-Dimer 5912.25 H D-Dimer Comment Lactate Dehydrogenase 1081 H Test 09/13/17 06:50 09/13/17 08:39 09/13/17 12:23 White Blood Count 11.4 H Red Blood Count 3.73 L Hemoglobin 10.2 L Hematocrit 31.1 L Mean Corpuscular Volume 83.4 Mean Corpuscular Hemoglobin 27.3 L Mean Corpuscular Hemoglobin Concent 32.8 Red Cell Distribution Width 14.6 H Platelet Count 71 #L Mean Platelet Volume 10.8 H Neutrophils % 67.6 Lymphocytes % 19.9 Monocytes % 7.7 Eosinophils % 1.6 Basophils % 0.6 Nucleated Red Blood Cells % 0.3 H Neutrophils # 7.7 H Lymphocytes # 2.3 Monocytes # 0.9 Eosinophils # 0.2 Basophils # 0.1 Nucleated Red Blood Cells # 0.0 Prothrombin Time 14.9 H Prothrombin Time Ratio 1.2 INR International Normalized Ratio 1.16 Sodium Level 141 Potassium Level 4.0 Chloride Level 106 Carbon Dioxide Level 24 Anion Gap 15 Blood Urea Nitrogen 24 H Creatinine 1.25 H Glucose Level 152 Calcium Level 9.0 Bedside Glucose 193 220 Medications Medications Current Medications Morphine Sulfate (morphine) 2 mg Q2H PRN IV FOR NON CARDIAC PAIN (4-10); Start 09/09/17 at 16:00 Clopidogrel Bisulfate (plaVIX) 75 mg DAILY PO Last administered on 09/13/17 08:45; Admin Dose 75 MG; Start 09/10/17 at 09:00 Aspirin (Aspirin) 81 mg DAILY PO Last administered on 09/13/17 08:45; Admin Dose 81 MG; Start 09/10/17 at 09:00 Atorvastatin Calcium (Lipitor) 80 mg QHS PO Last administered on 09/12/17 21: 43; Admin Dose 80 MG; Start 09/09/17 at 21:00 Metoprolol Tartrate (Lopressor) 25 mg BID PO Last administered on 09/13/17 08 :45; Admin Dose 25 MG; Start 09/09/17 at 21:00 Diagnostic Test (Pha) (Accu-Chek) 1 ea 02 XX Last administered on 09/13/17 02 :08; Admin Dose 1 EA; Start 09/10/17 at 02:00 Miscellaneous Information 1 ea NOTE XX ; Start 09/09/17 at 18:00 Glucose (Glutose) 15 gm Q15M PRN PO DECREASED GLUCOSE; Start 09/09/17 at 18:00 Glucose (Glutose) 22.5 gm Q15M PRN PO DECREASED GLUCOSE; Start 09/09/17 at 18: 00 Dextrose (D50w Syringe) 25 ml Q15M PRN IV DECREASED GLUCOSE; Start 09/09/17 at 18:00 Dextrose (D50w Syringe) 50 ml Q15M PRN IV DECREASED GLUCOSE; Start 09/09/17 at 18:00 Glucagon (Glucagen) 1 mg Q15M PRN IM DECREASED GLUCOSE; Start 09/09/17 at 18: 00 Glucose (Glutose) 15 gm Q15M PRN BUCCAL DECREASED GLUCOSE; Start 09/09/17 at 18:00 Lorazepam (Ativan) 0.5 mg Q6H PRN PO ANXIETY Last administered on 09/11/17 21 :24; Admin Dose 0.5 MG; Start 09/09/17 at 18:30 Warfarin Sodium (Coumadin) 5 mg DAILY@17 PO Last administered on 09/12/17 17: 46; Admin Dose 5 MG; Start 09/10/17 at 17:00 Fondaparinux (Arixtra) 2.5 mg DAILY SC Last administered on 09/13/17 08:47; Admin Dose 2.5 MG; Start 09/11/17 at 16:45 Acetaminophen (Tylenol Tab) 650 mg Q6H PRN PO PAIN AND OR ELEVATED TEMP Last administered on 09/13/17 06:50; Admin Dose 650 MG; Start 09/13/17 at 06:30 TINA MARCUM MD Sep 13, 2017 16:56
[2017-09-13] MEDS ORDERED: CLOP75TA28 PO (17:04)
[2017-09-13] MEDS ORDERED: ATOR80TA75 PO (17:04)
--- NOTE | 2017-09-13 17:06 | PDOCDIS ---
Discharge Instructions CONDITION Patient Condition: Good HOME CARE INSTRUCTIONS: Special Diet: Plant based diet ACTIVITY: Activity Restrictions: No Restrictions FOLLOW UP/APPOINTMENTS Follow-up Plan F/U WITH YOUR PCP AND GROUTMAN IN 1-2 WEEKS TATI COULTER Sep 13, 2017 17:06
--- NOTE | 2017-09-13 17:17 | DS ---
Date/Time of Note Date/Time of Note DATE: 09/13/17 TIME: 17:07 Discharge Summary Admission/Discharge Info Admit Date/Time Sep 09, 2017 at 15:37 Discharge Date/Time September 13, 2017 Discharge Diagnosis 1. STEMI s/p PCI of ostial LM and SVG-RCA There is concern for thrombotic occlusion of both the LM and vein graft and hence anticoagulation may be needed as an outpatient, will not DC with anticoagulation at this time secondary to thrombocytopenia but could be initiated as an outpatient with patient's medical dir EF remains preserved on echo Continue aspirin, and beta-maxime, DC with Plavix and high-dose statin Resume home KELL inhibitor as renal function is stable 2. Acute diastolic heart failure: EF preserved-now compensated Status post Lasix 3. Thrombocytopenia likely secondary to HIT-improved Hematology consultation appreciated Hold further anticoagulation at this time until platelets completely resolve, can initiate anticoagulation as an outpatient 4. CAD s/p CABG and bio AVR 09/02/2017: CARTWRIGHT-LAD patent, SVG-diag patent, s/p PCI of SVG-RCA 5. CKD-stable 6. Tobacco abuse Advised cessation Patient Condition: Good Hospital Course Patient is a 67-year-old [place] male with past medical history of essential hypertension, diabetes mellitus, dyslipidemia, and CAD who is status post CABG 3 along with bioprosthetic aortic valve replacement on 09/02/2017 at [facility]. Patient presented with a STEMI, was taken to the phlebotomy lab assistant and was found to have ostial 99% left main blockage and SVG-RCA graft 99% blockage. The patient underwent a balloon angioplasty and stenting of the ostial left main with a stent along with balloon angioplasty and stenting of the mid SVG- RCA with a stent with distal embolic protection. Patient became from cytopenic , patient was seen by hematology and was felt the patient had hit. Heparin products were held platelets did improve. Patient was started on anticoagulation for concern of thrombotic occlusion about the left main and vein graft but after discussion with cardiology was felt that patient should not be discharged with anticoagulation until patient's platelets stabilize, patient could be started on anticoagulation by his medical dir as an outpatient. Patient does not need anticoagulation for his AVR as it is a bioprosthetic valve. Patient felt to be stable for DC, on the day of discharge patient vitals, labs and physical exam are stable and no further acute complaints questions are answered. Patient was clear for DC per cardiology. Home Meds Active Scripts Atorvastatin* (Atorvastatin*) 80 Mg Tablet, 80 MG PO QHS, #60 TAB Prov:YFNTATI 09/13/17 Clopidogrel Bisulfate (Clopidogrel) 75 Mg Tablet, 75 MG PO DAILY, #90 TAB 1 Refill Prov:TATI COULTER 09/13/17 Reported Medications Aspirin (Low Dose Aspirin) 81 Mg Tablet.dr, 81 MG PO DAILY, #30 TAB 09/09/17 Omeprazole* (Omeprazole*) 20 Mg Capsule.dr, 20 MG PO DAILY, #30 CAP 09/09/17 Sertraline Hcl* (Zoloft*) 25 Mg Tablet, 25 MG PO DAILY, #30 TAB 09/09/17 Benazepril Hcl* (Benazepril Hcl*) 10 Mg Tablet, 10 MG PO BID, #60 TAB 09/09/17 Tamsulosin Hcl* (Flomax*) 0.4 Mg Cap.er.24h, 0.4 MG PO DAILY, CAP 09/09/17 Discontinued Reported Medications Simvastatin* (Zocor*) 40 Mg Tablet, 40 MG PO QHS, #30 TAB 09/09/17 Follow-up Plan F/U WITH YOUR PCP AND ARCHITECTURAL DESIGN PROFESSOR IN 1-2 WEEKS Primary Care Provider Not On Staff Doctor Time spent on discharge: > 30 minutes TATI COULTER Sep 13, 2017 17:17
[2017-09-14] MEDS ORDERED: BENAZEPRIL 5 MG TAB PO SCH (09:00)
[2017-09-14 15:37] LABS: HEPARIN INDUCED PLATELET AB POSITIVE (NEGATIVE)
== END 2017-09-13 18:48 | disposition home or self-care (01) | DRG 246 ==
LOC: E/R 14:00 → CCL 14:25 → SDS 14:25 → CCL 15:37 → REC 15:37 → ICU 16:44 → MS4 09-10 09:24 → TEL 09-10 19:06
PROVIDERS: ADMIT Internal Medicine; ATTEND Internal Medicine
PROC: B211YZZ Fluoroscopy of Multiple Coronary Arteries using Other Contrast (ICD-10-PCS; 2017-09-09)
PROC: B218YZZ Fluoroscopy of Left Internal Mammary Bypass Graft using Other Contrast (ICD-10-PCS; 2017-09-09)
PROC: B212YZZ Fluoroscopy of Single Coronary Artery Bypass Graft using Other Contrast (ICD-10-PCS; 2017-09-09)
PROC: 027135Z Dilation of Coronary Artery, Two Arteries with Two Drug-eluting Intraluminal Devices, Percutaneous Approach (ICD-10-PCS; principal; 2017-09-09 14:30)
PROC: 4A023N7 Measurement of Cardiac Sampling and Pressure, Left Heart, Percutaneous Approach (ICD-10-PCS; 2017-09-09 14:30)
DX: I21.19 ST elevation (STEMI) myocardial infarction involving other coronary artery of inferior wall (principal); I50.31 Acute diastolic (congestive) heart failure; N17.9 Acute kidney failure, unspecified; E11.22 Type 2 diabetes mellitus with diabetic chronic kidney disease; D75.82 Heparin induced thrombocytopenia (HIT); I13.0 Hypertensive heart and chronic kidney disease with heart failure and stage 1 through stage 4 chronic kidney disease, or unspecified chronic kidney disease; D64.9 Anemia, unspecified; F17.200 Nicotine dependence, unspecified, uncomplicated; I25.10 Atherosclerotic heart disease of native coronary artery without angina pectoris; N18.9 Chronic kidney disease, unspecified; Z95.2 Presence of prosthetic heart valve; Z95.1 Presence of aortocoronary bypass graft; Z79.01 Long term (current) use of anticoagulants; Z79.4 Long term (current) use of insulin
CPT/HCPCS: 71010; 80048; 80053; 80061; 82550; 82553; 82962; 83036; 83615; 83735; 84100; 84484; 85025; 85049; 85362; 85378; 85384; 85610; 85670; 85730; 86022; 86704; 86709; 86803; 87081; 87340; 93005; 93306; 93459; 96374; J1940; C1725; C1874; C1887; C9600; C9601; J0583; J1200; J1630; J1644; J1650; J1652; J1815; J2060; J2250; J2270; J3010; J7030; Q9967

== ENCOUNTER 2017-09-18 23:32 | Inpatient (IN) | payer OTHER ==
[~2017-09-18] VITALS: Ht 170.2 cm; Wt 83.0 kg
[~2017-09-18 23:32] MED LIST: ASPI-664 PO; ATOR80TA75 PO; BENA10TA48 PO; CLOP75TA28 PO; OMEP20CA16 PO; SERT25TA PO; TAMS-14 PO
[2017-09-18 23:44] VITALS: Ht 170.2 cm; Wt 83.0 kg
[2017-09-19] MEDS ORDERED: SOD CHLORIDE 0.9% 1,000 ML IV STA (00:01)
--- NOTE | 2017-09-19 00:46 | RADRPT ---
PROCEDURE: XR Chest. CLINICAL INDICATION: Chest pain. TECHNIQUE: Portable AP semi erect views of the chest were obtained, 2 images submitted to the PACS for review. COMPARISON: 09/12/2017 FINDINGS: Cardiac silhouette enlargement is again demonstrated. Interval decrease without resolution of left basilar subsegmental atelectasis. The right lung is now clear. There is no evidence for pleural eff usion, pneumothorax or pulmonary vascular congestion. Sternotomy wires are again noted without evid ence of acute osseous abnormality. Moderate thoracic spondylosis is present. RPTAT:HJJR IMPRESSION: Post thoracotomy changes with interval improvement but incomplete resolution of left basilar subsegm ental atelectasis as compared to 09/12/2017. Physician Ibrahima Date Time Electronically viewed and signed by Physician Ibrahima on 09/19/2017 00:46 /
--- NOTE | 2017-09-19 01:31 | ERD ---
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 +SOB. open heart sx 09/02 at [facility] 67-year-old male with a history of hypertension, diabetes, recent CABG and valve replacement September 02 complicated by STEMI recently discharged from our hospital presenting with bloody stools and chest pain. Patient was discharged on 09/13. His hospital course was complicated by heparin-induced thrombocytopenia. Therefore his heparin was stopped while in the hospital. Fondaparinux and Coumadin were then started September 16. After he started these medications, he noticed blood in his stools that have increased in quantity with each bowel movement. Initially he had dark blood in his stools now he has bright blood. He also complains of associated chest pain and intermittent dizziness with shortness of breath. Denies any abdominal pain or rectal pain. No fevers or chills. Currently he is also on Plavix. He was advised to come to the ER by his home health physician, . ROS All systems reviewed and are negative except as per history of present illness. Medications Home Meds Active Scripts Atorvastatin* (Atorvastatin*) 80 Mg Tablet, 80 MG PO QHS, #60 TAB Prov:TATI COULTER 09/13/17 Clopidogrel Bisulfate (Clopidogrel) 75 Mg Tablet, 75 MG PO DAILY, #90 TAB 1 Refill Prov:TATI COULTER 09/13/17 Reported Medications Aspirin (Low Dose Aspirin) 81 Mg Tablet.dr, 81 MG PO DAILY, #30 TAB 09/09/17 Omeprazole* (Omeprazole*) 20 Mg Capsule.dr, 20 MG PO DAILY, #30 CAP 09/09/17 Sertraline Hcl* (Zoloft*) 25 Mg Tablet, 25 MG PO DAILY, #30 TAB 09/09/17 Benazepril Hcl* (Benazepril Hcl*) 10 Mg Tablet, 10 MG PO BID, #60 TAB 09/09/17 Tamsulosin Hcl* (Flomax*) 0.4 Mg Cap.er.24h, 0.4 MG PO DAILY, CAP 09/09/17 Discontinued Reported Medications Simvastatin* (Zocor*) 40 Mg Tablet, 40 MG PO QHS, #30 TAB 09/09/17 Allergies Allergies: Coded Allergies: No Known Allergy (Unverified , 09/09/17) PMhx/Soc History of Surgery: Yes (CABG, valve replacement) Anesthesia Reaction: No Hx Neurological Disorder: No Hx Respiratory Disorders: No Hx Cardiac Disorders: Yes (HTN, CAD, STEMI, CABG) Hx Psychiatric Problems: No Hx Miscellaneous Medical Probl: Yes (DM) Hx Alcohol Use: No Hx Substance Use: No Hx Tobacco Use: No Smoking Status: Never smoker FmHx Family History: No diabetes Physical Exam Vitals Vital Signs Date Time Temp Pulse Resp B/P Pulse Ox O2 Delivery O2 Flow Rate FiO2 09/19/17 02:59 98.1 65 18 117/64 99 Room Air 09/19/17 01:20 77 20 110/69 98 Room Air 09/18/17 23:44 98.9 71 18 82/47 99 Physical Exam Const: Ill-appearing, no apparent distress, nontoxic Head: Atraumatic Eyes: Normal Conjunctiva ENT: Normal External Ears, Nose and Mouth. Neck: Full range of motion..~ No meningismus. Resp: Clear to auscultation bilaterally Cardio: sternotomy scar noted and well-healing without evidence of infection. Mild chest wall tenderness to palpation. Regular rate and rhythm, no murmurs. 2+ distal pulses. Cap refill less than 2 seconds Abd: Soft, non tender, non distended. Normal bowel sounds Skin: No petechiae or rashes Back: No midline or flank tenderness Ext: No cyanosis, or edema Neur: Awake and alert, oriented 3, strength and sensations intact in all 4 extremities Psych: Normal Mood and Affect Result Diagram: 09/19/17 0005 09/19/17 0005 Results 24 hrs Laboratory Tests Test 09/19/17 00:05 White Blood Count 8.510^3/ul Red Blood Count 4.0110^6/ul Hemoglobin 10.7g/dl Hematocrit 32.9% Mean Corpuscular Volume 82.0fl Mean Corpuscular Hemoglobin 26.7pg Mean Corpuscular Hemoglobin Concent 32.5g/dl Red Cell Distribution Width 14.1% Platelet Count 99725^3/UL Mean Platelet Volume 9.4fl Neutrophils % 64.4% Lymphocytes % 21.2% Monocytes % 12.2% Eosinophils % 1.4% Basophils % 0.4% Nucleated Red Blood Cells % 0.0/100WBC Neutrophils # 5.510^3/ul Lymphocytes # 1.810^3/ul Monocytes # 1.010^3/ul Eosinophils # 0.110^3/ul Basophils # 0.010^3/ul Nucleated Red Blood Cells # 0.010^3/ul Prothrombin Time 14.8Sec Prothrombin Time Ratio 1.2 INR International Normalized Ratio 1.16 Activated Partial Thromboplast Time 43.0Sec Sodium Level 139mmol/L Potassium Level 4.3mmol/L Chloride Level 104mmol/L Carbon Dioxide Level 23mmol/L Anion Gap 16 Blood Urea Nitrogen 15mg/dl Creatinine 1.20mg/dl Glucose Level 89mg/dl Calcium Level 9.5mg/dl Total Bilirubin 0.3mg/dl Direct Bilirubin 0.00mg/dl Indirect Bilirubin 0.3mg/dl Aspartate Amino Transf (AST/SGOT) 36IU/L Alanine Aminotransferase (ALT/SGPT) 62IU/L Alkaline Phosphatase 100IU/L Troponin I 0.152ng/ml Total Protein 8.1g/dl Albumin 4.0g/dl Globulin 4.10g/dl Albumin/Globulin Ratio 0.97 Current Medications Medications (Trade) Dose Ordered Sig/Yesi Route PRN Reason Start Time Stop Time Status Last Admin Dose Admin Sodium Chloride (NS) 1,000 ml @ 1,000 mls/hr Q1H STAT IV 09/19/17 00:01 09/19/17 01:00 DC 09/19/17 00:25 Ondansetron HCl (Zofran Inj) 4 mg ER BRIDGE PRN IV NAUSEA AND/OR VOMITING 09/19/17 03:30 09/20/17 03:29 Acetaminophen (Tylenol Tab) 650 mg ER BRIDGE PRN PO MILD PAIN/FEVER 09/19/17 03:30 09/20/17 03:29 Procedures/MDM EMERGENT LABS AND DIAGNOSTIC STUDIES: Lab Results above were reviewed and interpreted by me. CBC: Anemia with hemoglobin 10.7, stable when compared to prior labs. Normal platelet count CMP: No evidence of electrolyte abnormality, renal failure, hypoglycemia, liver failure, or biliary obstruction Troponin elevated, but downtrending when compared to previous INR subtherapeutic 12-lead EKG was interpreted by Nacho Mann MD: Normal Sinus Rhythm with ventricular rate of 71 beats per minute Normal axis Normal intervals Nonspecific ST abnormalities No acute ST or T wave changes suggestive of acute ischemia or STEMI. Radiology Results as interpreted by Radiology below were reviewed by Max Mann MD: Chest x-ray: Post thoracotomy changes with interval improvement but incomplete resolution of left basilar subsegmental atelectasis as compared to 09/12/2017. Initial Nursing notes reviewed. Previous Medical Records requested via the Electronic Health Record. EMERGENCY DEPARTMENT COURSE / MEDICAL DECISION MAKING: Patient is presenting with chest pain and acute GI bleeding, likely lower GI source. When the patient arrived he was somewhat hypotensive with a systolic blood pressure in the 80s. This improved after 1 L of IV fluids. There is no evidence of acute ischemia on his EKG today. Based on my evaluation, his chest pain is likely secondary to his recent surgery but I cannot rule out angina. His hemoglobin was low but normal when compared to his previous hemoglobins done within the past few weeks. I suspect his GI bleeding is likely secondary to the multiple anticoagulants he is on. There is no evidence of acute GI bleeding at this time, however I do not believe the patient is safe for discharge. He will be admitted for observation and medication reconciliation. Patient's blood pressure was elevated (>120/80) but appears stable without evidence of hypertensive emergency or urgency. The patient was counseled about the risks of hypertension and urged to pursue outpatient monitoring and therapy within a week with their primary care physician. Departure Diagnosis: Primary Impression: GI bleeding GI bleed type/associated pathology: unspecified gastrointestinal hemorrhage type Qualified Code: K92.2 - Gastrointestinal hemorrhage, unspecified gastrointestinal hemorrhage type Additional Impressions: Adv eff coagulants Chest pain Chest pain type: unspecified Qualified Code: R07.9 - Chest pain, unspecified type Condition: Serious KANG MANN MD Sep 19, 2017 01:31
[2017-09-19 02:59] VITALS: TEMP 98.1
[2017-09-19] MEDS ORDERED: ONDANSETRON 4 MG INJ IV PRN ×2 (03:30→05:30)
[2017-09-19] MEDS ORDERED: ACETAMINOPHEN 325 MG TAB PO PRN ×2 (03:30→05:30)
[2017-09-19] MEDS ORDERED: DEXTROSE 5%-0.45% NACL 1,000 ML IV SCH (05:21)
[2017-09-19] MEDS ORDERED: NACL 0.9% 3 ML SYG IV SCH (05:30)
[2017-09-19] MEDS ORDERED: morphine 2 MG INJ IV PRN (05:30)
[2017-09-19] MEDS ORDERED: ALBUTEROL/IPRATROPIUM (NEB) 3 ML AMP HHN PRN (05:30)
[2017-09-19] MEDS ORDERED: NITROGLYCERIN (SL) 0.4 MG TAB SL PRN (05:30)
[2017-09-19] MEDS ORDERED: LORAZEPAM 2 MG INJ IV PRN (05:30)
[2017-09-19] MEDS: INSULIN ASPART [NOVOLOG] 3 ML PEN SC SCH ×3 (06:00→18:00)
[2017-09-19] MEDS ORDERED: GLUCOSE GEL 15 GRAM TUBE BUCCAL PRN (06:30)
[2017-09-19] MEDS ORDERED: GLUCAGON 1 MG INJ IM PRN (06:30)
[2017-09-19] MEDS ORDERED: GLUCOSE GEL 15 GRAM TUBE PO PRN ×2 (06:30)
[2017-09-19] MEDS ORDERED: DEXTROSE 50% 50 ML SYRINGE IV PRN ×2 (06:30)
[2017-09-19] MEDS: PANTOPRAZOLE 40 MG INJ IV SCH ×2 (07:11→18:28)
[2017-09-19] MEDS: SERTRALINE 50 MG TAB PO SCH (09:00)
--- NOTE | 2017-09-19 09:02 | HP ---
Date/Time of Note Date/Time of Note DATE: 09/19/17 TIME: 08:53 Assessment/Plan VTE Prophylaxis VTE Prophylaxis Intervention: SCD's Assessment/Plan Assessment/Plan ASSESSMENT 67-year-old male with a history of CAD with CABG and biosynthetic cardiac valve replacement, both 2 weeks ago, STEMI 10 days ago, status post PCI with placement of stent who presented to the ER complaining of rectal bleeding 2 days after initiation of blood thinners 3 days ago. PLAN Hold blood thinners and antiplatelet. will also hold antihypertensives given BP being on the lower side Obtain CT abdomen/pelvis FOBT GI consult Cardiology consult Coags and platelet within acceptable range HPI/ROS Admit Date/Time Admit Date/Time Hx of Present Illness This is a 67-year-old male with a history of CAD with CABG and biosynthetic cardiac valve replacement, both 2 weeks ago, STEMI 10 days ago, status post PCI with placement of stent who presented to the ER complaining of rectal bleeding 2 days. Patient was recently admitted here for STEMI and was discharged last week. During that hospitalization he was also diagnosed with HIT. Given patient was thrombocytopenic, he was not discharged with blood thinners. He was started on Coumadin and also possibly fondaparinux 3 days ago. For the last 2 days, he said he has had 3 bloody bowel movements, which occurs at the end of BM and described as bright red blood. Denied abdominal pain, hematemesis , fever or chills. He also reported having had chest pain yesterday, located in the mid chest, actually at the surgical site. Chest pain is nonradiating with no associated shortness of breath, nausea, vomiting or diaphoresis. He presented with INR of 1.16 and his platelet is 219. Hemoglobin 10.7 and stable PMH/Family/Social Past Surgical History Past Surgical Hx: coronary bypass surgery, other Social History Smoking Status: Never smoker Exam/Review of Systems Vital Signs Vitals Vital Signs Date Time Temp Pulse Resp B/P Pulse Ox O2 Delivery O2 Flow Rate FiO2 09/19/17 06:44 74 16 94/56 97 Room Air 09/19/17 02:59 98.1 Exam Constitutional: alert, oriented Head: normocephalic Eyes: EOMI, PERRL Respiratory: clear to auscultation, normal air movement Cardiovascular: other (Healing midSurgical scar on chest), regular rate and rhythm Gastrointestinal: non-tender, soft Extremities: normal pulses Labs Result Diagram: 09/19/17 0005 09/19/17 0005 Medications Medications Current Medications Dextrose/Sodium Chloride (D5-1/2ns) 1,000 ml @ 75 mls/hr [id number] IV Last administered on 09/19/17 07:13; Admin Dose 75 MLS/HR; Start 09/19/17 at 05:21 Lorazepam (Ativan) 0.5 mg Q6H PRN IV ANXIETY; Start 09/19/17 at 05:30 Ondansetron HCl (Zofran Inj) 4 mg Q6H PRN IV NAUSEA AND/OR VOMITING; Start at 05:30 Nitroglycerin (Nitroglycerin (Sl Tab) 0.4 Mg) 1 tab Q5M PRN SL CHEST PAIN; Start 09/19/17 at 05:30 Acetaminophen (Tylenol Tab) 650 mg Q6H PRN PO PAIN LEVEL 1-3 OR FEVER; Start 09/19/17 at 05:30 Morphine Sulfate (morphine) 2 mg Q4H PRN IV PAIN LEVEL 7-10; Start 09/19/17 at 05:30 Pantoprazole (Protonix Iv) 40 mg BID@06,18 IV Last administered on 09/19/17 07:11; Admin Dose 40 MG; Start 09/19/17 at 06:00 Atorvastatin Calcium (Lipitor) 80 mg QHS PO ; Start 09/19/17 at 21:00 Sertraline HCl (Zoloft) 25 mg DAILY PO ; Start 09/19/17 at 09:00 Diagnostic Test (Pha) (Accu-Chek) 1 ea 02 XX ; Start 09/20/17 at 02:00 Insulin Aspart (Novolog Insulin Pen) NOVOLOG *MILD* ALGORI... Q6 SC ; Start at 06:00 Miscellaneous Information 1 ea NOTE XX ; Start 09/19/17 at 06:30 Glucose (Glutose) 15 gm Q15M PRN PO DECREASED GLUCOSE; Start 09/19/17 at 06:30 Glucose (Glutose) 22.5 gm Q15M PRN PO DECREASED GLUCOSE; Start 09/19/17 at 06: 30 Dextrose (D50w Syringe) 25 ml Q15M PRN IV DECREASED GLUCOSE; Start 10/30/17 at 06:30 Dextrose (D50w Syringe) 50 ml Q15M PRN IV DECREASED GLUCOSE; Start 09/19/17 at 06:30 Glucagon (Glucagen) 1 mg Q15M PRN IM DECREASED GLUCOSE; Start 09/19/17 at 06: 30 Glucose (Glutose) 15 gm Q15M PRN BUCCAL DECREASED GLUCOSE; Start 09/19/17 at 06:30 RIVAS GONZÁLES MD Sep 19, 2017 09:02
--- NOTE | 2017-09-19 10:25 | RADRPT ---
PROCEDURE: CT Abdomen and Pelvis without contrast. CLINICAL INDICATION: Rectal bleeding. Recent open-heart surgery. TECHNIQUE: Multiple contiguous axial CT images of the abdomen and pelvis were obtained without the administration of intravenous contrast. Coronal and sagittal reconstructions were also performed. CTDIvol (mGy): 16.41; Total Exam DLP (mGy-cm): 1032.50. One or more of the following dose reduction techniques were utilized: - Automated exposure control. - Adjustment of the mA and/or kV according to patient size. - Use of iterative reconstruction technique. COMPARISON: 10/15/2009. FINDINGS: Limited imaging of the lower thorax demonstrates a trace right and small left pleural effusions. Sca ttered basilar atelectatic changes are also observed. The liver and spleen are homogeneous in density. The liver is diffusely low in attenuation compatibl e with fatty infiltration. The gallbladder, pancreas and adrenal glands are unremarkable. The kidneys are symmetric in size. There are no nephroureteral stones. There is no hydronephrosis o r abnormal perinephric inflammation. The abdominal aorta is normal in caliber. Atherosclerotic calcification is present. There is no per iaortic / retroperitoneal lymphadenopathy. The stomach and small and large intestines are unremarkable. The appendix is normal. There are no focal inflammatory changes of the mesentery. There is no mesenteric lymphadenopathy. There is no a scites. The bladder is partially distended and normal in contour. Mild central nodular enlargement of the pr ostate gland. The seminal vesicles are unremarkable. There is no free pelvic fluid. There is no pel hallie sidewall or inguinal lymphadenopathy. The rectum is collapsed. There is no infiltration of the p erirectal fat. Small bilateral fat containing inguinal hernias are present. Degenerative changes of the lumbar spine are present. Median sternotomy wires are in place. Trace bernal bsternal fluid is observed. Mild stranding of the subcutaneous soft tissues of the lower midline laura st is present. IMPRESSION: No evidence of abdominopelvic mass, lymphadenopathy or acute inflammatory pathology. Specifically, t here is no obvious rectal or perirectal abnormality in the setting of rectal bleeding. Correlate wit h rectal exam and additional clinical data. Fatty infiltration of the liver. Small bilateral fat containing inguinal hernias. Trace right and small left pleural effusions with mild postoperative edema of the soft tissues surro unding the lower sternum. RPTAT: HLST .Guerline Chao MD, MD Date Time Electronically viewed and signed by .Guerline Chao MD, MD on 09/19/2017 10:25 .T/
[2017-09-19 13:25] VITALS: BP 137/76; PULSE 74; RESP 18
[2017-09-19] MEDS ORDERED: INFLUENZA VIRUS VACCINE 0.5 ML (DISPENSING) IM* ONE (14:00)
[2017-09-19 16:00] VITALS: PULSE 70
[2017-09-19 20:12] VITALS: PULSE 77
[2017-09-19 20:15] VITALS: BP 130/59; RESP 20
[2017-09-19] MEDS: ATORVASTATIN 80 MG TAB PO SCH (21:11)
[2017-09-20] VITALS (13 sets, daily range): BP systolic 110–150; BP diastolic 56–77; PULSE 67–87; RESP 19–20
[2017-09-20] MEDS: INSULIN ASPART [NOVOLOG] 3 ML PEN SC SCH ×4 (01:59→17:42)
[2017-09-20] MEDS: ACCU-CHEK XX SCH (02:00)
[2017-09-20] MEDS: PANTOPRAZOLE 40 MG INJ IV SCH ×2 (05:54→16:39)
[2017-09-20] MEDS: SERTRALINE 50 MG TAB PO SCH (08:27)
[2017-09-20] MEDS: ASPIRIN 81 MG TAB PO SCH (11:02)
[2017-09-20] MEDS: CLOPIDOGREL 75 MG TAB PO SCH (11:03)
--- NOTE | 2017-09-20 13:47 | CONS ---
Date/Time of Note Date/Time of Note DATE: 09/20/17 TIME: 13:26 Assessment/Plan Assessment/Plan Chief Complaint/Hosp Course Summary Assessment and Plan: Assessment: Hematochezia Post CABG Status post biosynthetic valve replacement Plan: We will need to be elevated by cardiology as patient is high risk If deemed appropriate by cardiology will proceed with colonoscopy Stool for OB- ordered no results as of yet Continue to monitor H/H Patient seen in collaboration with Dr. Montaño Chief Complaint/Reason for Visit: Hematochezia History of Present Illness: This is a 67-year-old primarily Swedish speaking male (residential real estate assistant was used) with a significant cardiac history including CAD with CABG and biosynthetic cardiac valve replacement, both 2 weeks ago. Patient also suffered STEMI 10 days ago, with PCI stent placement. Patient presented to the ER for worsening rectal bleeding. Patients notes rectal bleeding without abdominal pain, first started after discharge from last hospitalization 10 days ago, became worse after starting coagulant therapy,. Bleeding was described as bright red seen while wiping and in the toilet. Prior to coming into the ER patient felt lightheaded but did not have any episodes of syncope. CT scan was obtained showing no evidence of abdominopelvic mass, lymphadenopathy or acute inflammatory pathology. Specifically, there is no obvious rectal or perirectal abnormality in the setting of rectal bleeding. Correlate with rectal exam and additional clinical data. Fatty infiltration of the liver, small bilateral fat containing inguinal hernias.Trace right and small left pleural effusions with mild postoperative edema of the soft tissues surrounding the lower sternum. At the time of assessment patient denies any further episodes of rectal bleeding, abdominal pain, nausea, vomiting, pyrosis, constipation, or diarrhea. He has lost minimal weight in last 3 weeks, partly due to surgeries and hospitalization. He has never had a colonoscopy or EGD, and there is no family history of colon cancer in his family that he is aware of. Currently hemoglobin is stable 9.8, INR is 1.16. Patient is considered high risk post cardiac events, and must be evaluated by licensed life and health agent and cleared, prior to proceeding with colonoscopy. Past Medical History: Hypertension Diabetes CABG Biosynthetic valve replacement 2 weeks ago STEMI 10 days ago Allergies: No known allergies Family History: Pertinent family history No family history of colon cancer Social History: Denies smoking Problems: Consultation Date/Type/Reason Admit Date/Time Date of Consultation: Sep 20, 2017 Type of Consultation: GI Reason for Consultation Hematochezia Past Medical History Medical History: coronary artery disease, diabetes, hypertension, other (STEMI 10 days ago) Past Surgical History Past Surgical Hx: coronary bypass surgery (2 weeks ago), other (Biosynthetic valve replacement 2 weeks ago) Family History Significant Family History: no pertinent family hx Social History Smoking Status: Never smoker Exam/Review of Systems Vital Signs Vitals Vital Signs Date Time Temp Pulse Resp B/P Pulse Ox O2 Delivery O2 Flow Rate FiO2 09/20/17 12:00 87 09/20/17 11:33 98.4 19 150/64 98 09/19/17 13:25 Room Air Intake and Output 09/19/17 09/19/17 09/20/17 15:00 23:00 07:00 Intake Total 350 ml Balance 350 ml Results Result Diagram: 09/20/17 1224 09/20/17 0705 Results 24 hrs Laboratory Tests Test 09/19/17 16:31 09/19/17 18:44 09/20/17 00:44 09/20/17 01:51 White Blood Count 7.8 7.3 Red Blood Count 3.97 L 4.02 L Hemoglobin 10.3 L 10.8 L 10.1 L Hematocrit 33.3 L 33.7 L 31.5 L Mean Corpuscular Volume 83.9 83.8 Mean Corpuscular Hemoglobin 25.9 L 26.9 L Mean Corpuscular Hemoglobin Concent 30.9 L 32.0 Red Cell Distribution Width 14.4 14.1 Platelet Count 218 210 Mean Platelet Volume 10.3 9.2 Neutrophils % 66.3 67.8 Lymphocytes % 21.4 20.7 Monocytes % 10.1 9.1 Eosinophils % 1.1 1.4 Basophils % 0.6 0.7 Nucleated Red Blood Cells % 0.0 0.0 Neutrophils # 5.2 4.9 Lymphocytes # 1.7 1.5 Monocytes # 0.8 0.7 Eosinophils # 0.1 0.1 Basophils # 0.1 0.1 Nucleated Red Blood Cells # 0.0 0.0 Troponin I 0.101 Bedside Glucose 164 Test 09/20/17 05:49 09/20/17 07:05 09/20/17 11:54 09/20/17 12:24 Bedside Glucose 114 172 White Blood Count 7.5 Red Blood Count 3.82 L Hemoglobin 9.9 L 9.8 L Hematocrit 31.9 L 31.4 L Mean Corpuscular Volume 83.5 Mean Corpuscular Hemoglobin 25.9 L Mean Corpuscular Hemoglobin Concent 31.0 L Red Cell Distribution Width 14.2 Platelet Count 206 Mean Platelet Volume 9.7 Neutrophils % 63.5 Lymphocytes % 22.4 Monocytes % 10.8 Eosinophils % 1.7 Basophils % 1.1 Nucleated Red Blood Cells % 0.0 Neutrophils # 4.8 Lymphocytes # 1.7 Monocytes # 0.8 Eosinophils # 0.1 Basophils # 0.1 Nucleated Red Blood Cells # 0.0 Sodium Level 140 Potassium Level 4.4 Chloride Level 104 Carbon Dioxide Level 23 Anion Gap 17 H Blood Urea Nitrogen 12 Creatinine 1.05 Glucose Level 114 Calcium Level 8.7 Magnesium Level 2.0 Total Bilirubin 0.5 Direct Bilirubin 0.00 Indirect Bilirubin 0.5 Aspartate Amino Transf (AST/SGOT) 36 Alanine Aminotransferase (ALT/SGPT) 54 Alkaline Phosphatase 98 Total Protein 7.1 # Albumin 4.1 Globulin 3.00 Albumin/Globulin Ratio 1.36 Medications Medications Current Medications Lorazepam (Ativan) 0.5 mg Q6H PRN IV ANXIETY; Start 09/19/17 at 05:30 Ondansetron HCl (Zofran Inj) 4 mg Q6H PRN IV NAUSEA AND/OR VOMITING; Start at 05:30 Nitroglycerin (Nitroglycerin (Sl Tab) 0.4 Mg) 1 tab Q5M PRN SL CHEST PAIN; Start 09/19/17 at 05:30 Acetaminophen (Tylenol Tab) 650 mg Q6H PRN PO PAIN LEVEL 1-3 OR FEVER; Start 09/19/17 at 05:30 Pantoprazole (Protonix Iv) 40 mg BID@06,18 IV Last administered on 09/20/17 05:54; Admin Dose 40 MG; Start 09/19/17 at 06:00 Atorvastatin Calcium (Lipitor) 80 mg QHS PO Last administered on 09/19/17 21: 11; Admin Dose 80 MG; Start 09/19/17 at 21:00 Sertraline HCl (Zoloft) 25 mg DAILY PO Last administered on 09/20/17 08:27; Admin Dose 25 MG; Start 09/19/17 at 09:00 Diagnostic Test (Pha) (Accu-Chek) 1 02 XX Last administered on 09/20/17 02 :00; Admin Dose 1 EA; Start 09/20/17 at 02:00 Insulin Aspart (Novolog Insulin Pen) NOVOLOG *MILD* ALGORI... Q6 SC Last administered on 09/20/17 12:06; Admin Dose 1 UNIT; Start 09/19/17 at 06:00 Miscellaneous Information 1 ea NOTE XX ; Start 09/19/17 at 06:30 Glucose (Glutose) 15 gm Q15M PRN PO DECREASED GLUCOSE; Start 09/19/17 at 06:30 Glucose (Glutose) 22.5 gm Q15M PRN PO DECREASED GLUCOSE; Start 09/19/17 at 06: 30 Dextrose (D50w Syringe) 25 ml Q15M PRN IV DECREASED GLUCOSE; Start 09/19/17 at 06:30 Dextrose (D50w Syringe) 50 ml Q15M PRN IV DECREASED GLUCOSE; Start 09/19/17 at 06:30 Glucagon (Glucagen) 1 mg Q15M PRN IM DECREASED GLUCOSE; Start 09/19/17 at 06: 30 Glucose (Glutose) 15 gm Q15M PRN BUCCAL DECREASED GLUCOSE; Start 09/19/17 at 06:30 Aspirin (Aspirin) 81 mg DAILY PO Last administered on 09/20/17 11:02; Admin Dose 81 MG; Start 09/20/17 at 09:30 Clopidogrel Bisulfate (plaVIX) 75 mg DAILY PO Last administered on 09/20/17 11:03; Admin Dose 75 MG; Start 09/20/17 at 09:30 Metoprolol Tartrate (Lopressor) 25 mg BID PO ; Start 09/20/17 at 21:00 Copies To: CC: JUSTYN MONTAÑO MD, VICTORIA Sep 20, 2017 13:42
--- NOTE | 2017-09-20 15:37 | CONS ---
Date/Time of Note Date/Time of Note DATE: 09/20/17 TIME: 15:20 Assessment/Plan Assessment/Plan Chief Complaint/Hosp Course Assessment: Hematochezia Recent inferoposterior STEMI - PCI to 99% ostial LM and 99% SVG-RCA (09/09/2017) , mildly elevated troponins now likely downtrending from prior STEMI Coronary artery disease - status post CABG: CARTWRIGHT-LAD, SVG-diag, SVG-RCA (2016) Status post bioprosthetic AVR (09/02/2017) - normal function on echocardiogram ( 09/09/2017) Hypertension Dyslipidemia Diabetes mellitus History of heparin-induced thrombocytopenia - now normal platelets Pre-operative cardiac evaluation - possible colonoscopy Recommendations: High cardiac risk patient (given recent STEMI) planned for low cardiac risk procedure (colonoscopy). Patient without evidence of unstable cardiac condition , and is optimized for procedure from cardiac standpoint if he needs it. -continue aspirin 81mg and clopidogrel 75mg daily, monitor hemoglobin -continue metoprolol 25mg BID -continue atorvastatin 80mg daily Problems: Consultation Date/Type/Reason Admit Date/Time Type of Consultation: Cardiology Reason for Consultation coronary artery disease Hx of Present Illness The patient is a 67 year-old male who presented with two days of hematochezia. He was on aspirin and clopidogrel, and just started fondaparinux two days ago. He underwent three-vessel coronary artery bypass graft surgery and bioprosthetic aortic valve replacement on 09/02/2017. He presented with acute inferoposterior ST-elevation myocardial infarction 09/09/2017 and was found to have a 99% stenosis in the ostial left main and a 99% stenosis in the vein graft to the right coronary artery. He underwent successful percutaneous coronary interventions with drug-eluting stents to both lesions. Echocardiogram 09/09/2017 reported a left ventricular ejection fraction of 50%. During his hospitalization 09/09/2017 to 09/13/2017, he developed heparin- induced thrombocytopenia, which is why he was started on fondaparinux. 14 point review of systems negative other than per HPI. Past Medical History Coronary artery disease Hypertension Dyslipidemia Diabetes mellitus History of heparin-induced thrombocytopenia Past Surgical History Past Surgical Hx: coronary bypass surgery (CARTWRIGHT-LAD , SVG-diag , SVG-RCA), other (bioprosthetic aortic valve replacement) Family History Significant Family History: no pertinent family hx Social History Smoking Status: Former smoker Exam/Review of Systems Vital Signs Vitals Vital Signs Date Time Temp Pulse Resp B/P Pulse Ox O2 Delivery O2 Flow Rate FiO2 09/20/17 12:00 87 09/20/17 11:33 98.4 19 150/64 98 09/19/17 13:25 Room Air Intake and Output 09/19/17 09/19/17 09/20/17 15:00 23:00 07:00 Intake Total 350 ml Balance 350 ml Exam Constitutional: alert, well developed Psych: nl mood/affect, no complaints Head: atraumatic, normocephalic Eyes: nl conjunctiva, nl lids ENMT: nl external ears & nose, nl nasal mucosa & septum Neck: non-tender, supple, No jvd Respiratory: clear to auscultation, normal air movement Cardiovascular: regular rate and rhythm, systolic murmur Gastrointestinal: non-tender, soft Musculoskeletal: nl extremities to inspection, No joint tenderness Extremities: No clubbing, No cyanosis, No edema Neurological: nl mental status, nl speech Skin: nl turgor Results Result Diagram: 09/20/17 1224 09/20/17 0705 Results 24 hrs Laboratory Tests Test 09/19/17 16:31 09/19/17 18:44 09/20/17 00:44 09/20/17 01:51 White Blood Count 7.8 7.3 Red Blood Count 3.97 L 4.02 L Hemoglobin 10.3 L 10.8 L 10.1 L Hematocrit 33.3 L 33.7 L 31.5 L Mean Corpuscular Volume 83.9 83.8 Mean Corpuscular Hemoglobin 25.9 L 26.9 L Mean Corpuscular Hemoglobin Concent 30.9 L 32.0 Red Cell Distribution Width 14.4 14.1 Platelet Count 218 210 Mean Platelet Volume 10.3 9.2 Neutrophils % 66.3 67.8 Lymphocytes % 21.4 20.7 Monocytes % 10.1 9.1 Eosinophils % 1.1 1.4 Basophils % 0.6 0.7 Nucleated Red Blood Cells % 0.0 0.0 Neutrophils # 5.2 4.9 Lymphocytes # 1.7 1.5 Monocytes # 0.8 0.7 Eosinophils # 0.1 0.1 Basophils # 0.1 0.1 Nucleated Red Blood Cells # 0.0 0.0 Troponin I 0.101 Bedside Glucose 164 Test 09/20/17 05:49 09/20/17 07:05 09/20/17 11:54 09/20/17 12:24 Bedside Glucose 114 172 White Blood Count 7.5 Red Blood Count 3.82 L Hemoglobin 9.9 L 9.8 L Hematocrit 31.9 L 31.4 L Mean Corpuscular Volume 83.5 Mean Corpuscular Hemoglobin 25.9 L Mean Corpuscular Hemoglobin Concent 31.0 L Red Cell Distribution Width 14.2 Platelet Count 206 Mean Platelet Volume 9.7 Neutrophils % 63.5 Lymphocytes % 22.4 Monocytes % 10.8 Eosinophils % 1.7 Basophils % 1.1 Nucleated Red Blood Cells % 0.0 Neutrophils # 4.8 Lymphocytes # 1.7 Monocytes # 0.8 Eosinophils # 0.1 Basophils # 0.1 Nucleated Red Blood Cells # 0.0 Sodium Level 140 Potassium Level 4.4 Chloride Level 104 Carbon Dioxide Level 23 Anion Gap 17 H Blood Urea Nitrogen 12 Creatinine 1.05 Glucose Level 114 Calcium Level 8.7 Magnesium Level 2.0 Total Bilirubin 0.5 Direct Bilirubin 0.00 Indirect Bilirubin 0.5 Aspartate Amino Transf (AST/SGOT) 36 Alanine Aminotransferase (ALT/SGPT) 54 Alkaline Phosphatase 98 Total Protein 7.1 # Albumin 4.1 Globulin 3.00 Albumin/Globulin Ratio 1.36 Medications Medications Current Medications Lorazepam (Ativan) 0.5 mg Q6H PRN IV ANXIETY; Start 09/19/17 at 05:30 Ondansetron HCl (Zofran Inj) 4 mg Q6H PRN IV NAUSEA AND/OR VOMITING; Start at 05:30 Nitroglycerin (Nitroglycerin (Sl Tab) 0.4 Mg) 1 tab Q5M PRN SL CHEST PAIN; Start 09/19/17 at 05:30 Acetaminophen (Tylenol Tab) 650 mg Q6H PRN PO PAIN LEVEL 1-3 OR FEVER; Start 09/19/17 at 05:30 Pantoprazole (Protonix Iv) 40 mg BID@06,18 IV Last administered on 09/20/17 05:54; Admin Dose 40 MG; Start 09/19/17 at 06:00 Atorvastatin Calcium (Lipitor) 80 mg QHS PO Last administered on 09/19/17 21: 11; Admin Dose 80 MG; Start 09/19/17 at 21:00 Sertraline HCl (Zoloft) 25 mg DAILY PO Last administered on 09/20/17 08:27; Admin Dose 25 MG; Start 09/19/17 at 09:00 Diagnostic Test (Pha) (Accu-Chek) 1 ea 02 XX Last administered on 09/20/17 02 :00; Admin Dose 1 EA; Start 09/20/17 at 02:00 Insulin Aspart (Novolog Insulin Pen) NOVOLOG *MILD* ALGORI... Q6 SC Last administered on 09/20/17 12:06; Admin Dose 1 UNIT; Start 09/19/17 at 06:00 Miscellaneous Information 1 ea NOTE XX ; Start 09/19/17 at 06:30 Glucose (Glutose) 15 gm Q15M PRN PO DECREASED GLUCOSE; Start 09/19/17 at 06:30 Glucose (Glutose) 22.5 gm Q15M PRN PO DECREASED GLUCOSE; Start 09/19/17 at 06: 30 Dextrose (D50w Syringe) 25 ml Q15M PRN IV DECREASED GLUCOSE; Start 09/19/17 at 06:30 Dextrose (D50w Syringe) 50 ml Q15M PRN IV DECREASED GLUCOSE; Start 09/19/17 at 06:30 Glucagon (Glucagen) 1 mg Q15M PRN IM DECREASED GLUCOSE; Start 09/19/17 at 06: 30 Glucose (Glutose) 15 gm Q15M PRN BUCCAL DECREASED GLUCOSE; Start 09/19/17 at 06:30 Aspirin (Aspirin) 81 mg DAILY PO Last administered on 09/20/17 11:02; Admin Dose 81 MG; Start 09/20/17 at 09:30 Clopidogrel Bisulfate (plaVIX) 75 mg DAILY PO Last administered on 09/20/17 11:03; Admin Dose 75 MG; Start 09/20/17 at 09:30 Metoprolol Tartrate (Lopressor) 25 mg BID PO ; Start 09/20/17 at 21:00 TINA MARCUM MD Sep 20, 2017 15:33
--- NOTE | 2017-09-20 15:44 | PN ---
Date/Time of Note Date/Time of Note DATE: 09/20/17 TIME: 15:43 Assessment/Plan VTE Prophylaxis VTE Prophylaxis Intervention: other Lines/Catheters IV Catheter Type [facility]from [facility]): Peripheral IV Assessment/Plan Chief Complaint/Hosp Course 67 yo male with AVR and s/p CABG and recent PCI for NSTEMi [facility] rectal bleeding - Plan for colonoscopy CAD s/p CABG/PCI: - Continue aspirin plavix, statin - BB Thrombocytopneia: - Resolved, suspect mild HIT DMII; - AISS h/o AVR: - Resume coumadin at discharge Discharge folowign colonoscopy Problems: Subjective 24 Hr Interval Summary Free Text/Dictation No chest compliants No more bleedign Exam/Review of Systems Vital Signs Vitals Vital Signs Date Time Temp Pulse Resp B/P Pulse Ox O2 Delivery O2 Flow Rate FiO2 09/20/17 12:00 87 09/20/17 11:33 98.4 19 150/64 98 09/19/17 13:25 Room Air Intake and Output 09/19/17 09/19/17 09/20/17 15:00 23:00 07:00 Intake Total 350 ml Balance 350 ml Exam Constitutional: alert, oriented, well developed Psych: nl mood/affect, no complaints Head: atraumatic, normocephalic Eyes: EOMI, PERRL, nl conjunctiva, nl lids, nl sclera ENMT: nl external ears & nose, nl lips & teeth, nl nasal mucosa & septum Neck: non-tender, supple Respiratory: clear to auscultation, normal air movement Cardiovascular: nl pulses, regular rate and rhythm Gastrointestinal: nl liver, spleen, non-tender, soft Musculoskeletal: nl extremities to inspection, nl gait and stance Extremities: normal pulses Neurological: PLUCK SEPARATOR II-XII intact, nl mental status, nl speech, nl strength Skin: nl turgor, No rash or lesions Lymph: nl lymph nodes Results Result Diagram: 09/20/17 1224 09/20/17 0705 Results 24 hrs Laboratory Tests Test 09/19/17 16:31 09/19/17 18:44 09/20/17 00:44 09/20/17 01:51 White Blood Count 7.8 7.3 Red Blood Count 3.97 L 4.02 L Hemoglobin 10.3 L 10.8 L 10.1 L Hematocrit 33.3 L 33.7 L 31.5 L Mean Corpuscular Volume 83.9 83.8 Mean Corpuscular Hemoglobin 25.9 L 26.9 L Mean Corpuscular Hemoglobin Concent 30.9 L 32.0 Red Cell Distribution Width 14.4 14.1 Platelet Count 218 210 Mean Platelet Volume 10.3 9.2 Neutrophils % 66.3 67.8 Lymphocytes % 21.4 20.7 Monocytes % 10.1 9.1 Eosinophils % 1.1 1.4 Basophils % 0.6 0.7 Nucleated Red Blood Cells % 0.0 0.0 Neutrophils # 5.2 4.9 Lymphocytes # 1.7 1.5 Monocytes # 0.8 0.7 Eosinophils # 0.1 0.1 Basophils # 0.1 0.1 Nucleated Red Blood Cells # 0.0 0.0 Troponin I 0.101 Bedside Glucose 164 Test 09/20/17 05:49 09/20/17 07:05 09/20/17 11:54 09/20/17 12:24 Bedside Glucose 114 172 White Blood Count 7.5 Red Blood Count 3.82 L Hemoglobin 9.9 L 9.8 L Hematocrit 31.9 L 31.4 L Mean Corpuscular Volume 83.5 Mean Corpuscular Hemoglobin 25.9 L Mean Corpuscular Hemoglobin Concent 31.0 L Red Cell Distribution Width 14.2 Platelet Count 206 Mean Platelet Volume 9.7 Neutrophils % 63.5 Lymphocytes % 22.4 Monocytes % 10.8 Eosinophils % 1.7 Basophils % 1.1 Nucleated Red Blood Cells % 0.0 Neutrophils # 4.8 Lymphocytes # 1.7 Monocytes # 0.8 Eosinophils # 0.1 Basophils # 0.1 Nucleated Red Blood Cells # 0.0 Sodium Level 140 Potassium Level 4.4 Chloride Level 104 Carbon Dioxide Level 23 Anion Gap 17 H Blood Urea Nitrogen 12 Creatinine 1.05 Glucose Level 114 Calcium Level 8.7 Magnesium Level 2.0 Total Bilirubin 0.5 Direct Bilirubin 0.00 Indirect Bilirubin 0.5 Aspartate Amino Transf (AST/SGOT) 36 Alanine Aminotransferase (ALT/SGPT) 54 Alkaline Phosphatase 98 Total Protein 7.1 # Albumin 4.1 Globulin 3.00 Albumin/Globulin Ratio 1.36 Medications Medications Current Medications Lorazepam (Ativan) 0.5 mg Q6H PRN IV ANXIETY; Start 09/19/17 at 05:30 Ondansetron HCl (Zofran Inj) 4 mg Q6H PRN IV NAUSEA AND/OR VOMITING; Start at 05:30 Nitroglycerin (Nitroglycerin (Sl Tab) 0.4 Mg) 1 tab Q5M PRN SL CHEST PAIN; Start 09/19/17 at 05:30 Acetaminophen (Tylenol Tab) 650 mg Q6H PRN PO PAIN LEVEL 1-3 OR FEVER; Start 09/19/17 at 05:30 Pantoprazole (Protonix Iv) 40 mg BID@,18 IV Last administered on 09/20/17 05:54; Admin Dose 40 MG; Start 09/19/17 at 06:00 Atorvastatin Calcium (Lipitor) 80 mg QHS PO Last administered on 09/19/17 21: 11; Admin Dose 80 MG; Start 09/19/17 at 21:00 Sertraline HCl (Zoloft) 25 mg DAILY PO Last administered on 09/20/17 08:27; Admin Dose 25 MG; Start 09/19/17 at 09:00 Diagnostic Test (Pha) (Accu-Chek) 1 ea 02 XX Last administered on 09/20/17 02 :00; Admin Dose 1 EA; Start 09/20/17 at 02:00 Insulin Aspart (Novolog Insulin Pen) NOVOLOG *MILD* ALGORI... Q6 SC Last administered on 09/20/17 12:06; Admin Dose 1 UNIT; Start 09/19/17 at 06:00 Miscellaneous Information 1 ea NOTE XX ; Start 09/19/17 at 06:30 Glucose (Glutose) 15 gm Q15M PRN PO DECREASED GLUCOSE; Start 09/19/17 at 06:30 Glucose (Glutose) 22.5 gm Q15M PRN PO DECREASED GLUCOSE; Start 09/19/17 at 06: 30 Dextrose (D50w Syringe) 25 ml Q15M PRN IV DECREASED GLUCOSE; Start 09/19/17 at 06:30 Dextrose (D50w Syringe) 50 ml Q15M PRN IV DECREASED GLUCOSE; Start 09/19/17 at 06:30 Glucagon (Glucagen) 1 mg Q15M PRN IM DECREASED GLUCOSE; Start 09/19/17 at 06: 30 Glucose (Glutose) 15 gm Q15M PRN BUCCAL DECREASED GLUCOSE; Start 09/19/17 at 06:30 Aspirin (Aspirin) 81 mg DAILY PO Last administered on 09/20/17 11:02; Admin Dose 81 MG; Start 09/20/17 at 09:30 Clopidogrel Bisulfate (plaVIX) 75 mg DAILY PO Last administered on 09/20/17 11:03; Admin Dose 75 MG; Start 09/20/17 at 09:30 Metoprolol Tartrate (Lopressor) 25 mg BID PO ; Start 09/20/17 at 21:00 ADRIAN WHEELER MD Sep 20, 2017 15:44
[2017-09-20] MEDS: METOPROLOL 25 MG TAB PO SCH (20:33)
[2017-09-20] MEDS: ATORVASTATIN 80 MG TAB PO SCH (20:33)
[2017-09-21] VITALS (11 sets, daily range): BP systolic 108–119; BP diastolic 60–69; PULSE 70–79; RESP 16–20
[2017-09-21] MEDS: ACCU-CHEK XX SCH (02:00)
[2017-09-21] MEDS: PANTOPRAZOLE 40 MG INJ IV SCH ×2 (05:28→16:59)
[2017-09-21] MEDS: INSULIN ASPART [NOVOLOG] 3 ML PEN SC SCH ×4 (06:00→17:02)
[2017-09-21] MEDS: SERTRALINE 50 MG TAB PO SCH (07:57)
[2017-09-21] MEDS: CLOPIDOGREL 75 MG TAB PO SCH (07:57)
[2017-09-21] MEDS: ASPIRIN 81 MG TAB PO SCH (07:57)
[2017-09-21] MEDS: METOPROLOL 25 MG TAB PO SCH ×2 (07:57→20:28)
--- NOTE | 2017-09-21 11:55 | PN ---
Date/Time of Note Date/Time of Note DATE: 09/21/17 TIME: 11:51 Assessment/Plan VTE Prophylaxis VTE Prophylaxis Intervention: SCD's Lines/Catheters [facility] Peripheral IV Assessment/Plan Chief Complaint/Hosp Course Summary Assessment and Plan: Assessment: Hematochezia Post CABG x3 vessels Status post biosynthetic valve replacement Recent [place]- 11 days ago Plan: Patient cleared by cardiology Plan for colonoscopy Continue to monitor H/H Patient seen in collaboration with Dr. Montaño Subjective: Course reviewed with nursing staff Patient interviewed and examined All labs, imaging and other results reviewed The patient feels well discussed plan with patient via an financial manager Plan for colonoscopy Problems: Exam/Review of Systems Vital Signs Vitals Vital Signs Date Time Temp Pulse Resp B/P Pulse Ox O2 Delivery O2 Flow Rate FiO2 09/21/17 08:14 79 09/21/17 08:03 97.7 16 115/61 97 09/19/17 13:25 Room Air Intake and Output 09/20/17 09/20/17 09/21/17 15:00 23:00 07:00 Intake Total 600 ml 400 ml Balance 600 ml 400 ml Exam Constitutional: alert, oriented Psych: nl mood/affect, no complaints Head: normocephalic Eyes: nl conjunctiva ENMT: nl external ears & nose, nl lips & teeth Neck: non-tender, supple Respiratory: clear to auscultation, normal air movement Cardiovascular: other (s/p CABG x3 vessels and biosynthetic vavle replacement- [place] 11 days ago), regular rate and rhythm Gastrointestinal: bowel sounds, nl liver, spleen, non-tender, other (no further episodes of rectal bleed), soft, No ascites, No distended, No firm, No hepatomegaly, No mass, No rebound or guarding, No splenomegaly, No surgical scars, No tender Genitourinary - Male: nl penis Results Result Diagram: 09/21/17 0716 09/20/17 0705 Results 24 hrs Laboratory Tests Test 09/20/17 11:54 09/20/17 12:24 09/20/17 17:14 09/20/17 18:32 Bedside Glucose 172 135 Hemoglobin 9.8 L 10.7 L Hematocrit 31.4 L 33.2 L Test 09/20/17 23:38 09/21/17 00:40 09/21/17 05:27 09/21/17 07:16 Bedside Glucose 121 122 Hemoglobin 9.7 L 10.3 L Hematocrit 30.5 L 31.6 L Test 09/21/17 11:46 Bedside Glucose 176 Medications Medications Current Medications Lorazepam (Ativan) 0.5 mg Q6H PRN IV ANXIETY; Start 09/19/17 at 05:30 Ondansetron HCl (Zofran Inj) 4 mg Q6H PRN IV NAUSEA AND/OR VOMITING; Start at 05:30 Nitroglycerin (Nitroglycerin (Sl Tab) 0.4 Mg) 1 tab Q5M PRN SL CHEST PAIN; Start 09/19/17 at 05:30 Acetaminophen (Tylenol Tab) 650 mg Q6H PRN PO PAIN LEVEL 1-3 OR FEVER; Start 09/19/17 at 05:30 Pantoprazole (Protonix Iv) 40 mg BID@,18 IV Last administered on 09/21/17 05 :28; Admin Dose 40 MG; Start 09/19/17 at 06:00 Atorvastatin Calcium (Lipitor) 80 mg QHS PO Last administered on 09/20/17 20: 33; Admin Dose 80 MG; Start 09/19/17 at 21:00 Sertraline HCl (Zoloft) 25 mg DAILY PO Last administered on 09/21/17 07:57; Admin Dose 25 MG; Start 09/19/17 at 09:00 Diagnostic Test (Pha) (Accu-Chek) 1 ea 02 XX Last administered on 09/20/17 02 :00; Admin Dose 1 EA; Start 09/20/17 at 02:00 Insulin Aspart (Novolog Insulin Pen) NOVOLOG *MILD* ALGORI... Q6 SC Last administered on 09/20/17 12:06; Admin Dose 1 UNIT; Start 09/19/17 at 06:00 Miscellaneous Information 1 ea NOTE XX ; Start 09/19/17 at 06:30 Glucose (Glutose) 15 gm Q15M PRN PO DECREASED GLUCOSE; Start 09/19/17 at 06:30 Glucose (Glutose) 22.5 gm Q15M PRN PO DECREASED GLUCOSE; Start 09/19/17 at 06: 30 Dextrose (D50w Syringe) 25 ml Q15M PRN IV DECREASED GLUCOSE; Start 09/19/17 at 06:30 Dextrose (D50w Syringe) 50 ml Q15M PRN IV DECREASED GLUCOSE; Start 09/19/17 at 06:30 Glucagon (Glucagen) 1 mg Q15M PRN IM DECREASED GLUCOSE; Start 09/19/17 at 06: 30 Glucose (Glutose) 15 gm Q15M PRN BUCCAL DECREASED GLUCOSE; Start 09/19/17 at 06:30 Aspirin (Aspirin) 81 mg DAILY PO Last administered on 09/21/17 07:57; Admin Dose 81 MG; Start 09/20/17 at 09:30 Clopidogrel Bisulfate (plaVIX) 75 mg DAILY PO Last administered on 09/21/17 07 :57; Admin Dose 75 MG; Start 09/20/17 at 09:30 Metoprolol Tartrate (Lopressor) 25 mg BID PO Last administered on 09/21/17 07: 57; Admin Dose 25 MG; Start 09/20/17 at 21:00 MALACHI HARRIS Sep 21, 2017 11:55 MALACHI HARRIS Sep 21, 2017 11:55
--- NOTE | 2017-09-21 11:55 | PN ---
Date/Time of Note Date/Time of Note DATE: 09/21/17 TIME: 11:51 Assessment/Plan VTE Prophylaxis VTE Prophylaxis Intervention: SCD's Lines/Catheters IV Catheter Type (from [email or web address] Peripheral IV Assessment/Plan Chief Complaint/Hosp Course Summary Assessment and Plan: Assessment: Hematochezia Post CABG x3 vessels Status post biosynthetic valve replacement Recent [place]- 11 days ago Plan: Patient cleared by cardiology Plan for colonoscopy Continue to monitor H/H Patient seen in collaboration with Dr. Montaño Subjective: Course reviewed with nursing staff Patient interviewed and examined All labs, imaging and other results reviewed The patient feels well discussed plan with patient via an medical scribe Plan for colonoscopy Problems: Exam/Review of Systems Vital Signs Vitals Vital Signs Date Time Temp Pulse Resp B/P Pulse Ox O2 Delivery O2 Flow Rate FiO2 09/21/17 08:14 79 09/21/17 08:03 97.7 16 115/61 97 09/19/17 13:25 Room Air Intake and Output 09/20/17 09/20/17 09/21/17 15:00 23:00 07:00 Intake Total 600 ml 400 ml Balance 600 ml 400 ml Exam Constitutional: alert, oriented Psych: nl mood/affect, no complaints Head: normocephalic Eyes: nl conjunctiva ENMT: nl external ears & nose, nl lips & teeth Neck: non-tender, supple Respiratory: clear to auscultation, normal air movement Cardiovascular: other (s/p CABG x3 vessels and biosynthetic vavle replacement- [place] 11 days ago), regular rate and rhythm Gastrointestinal: bowel sounds, nl liver, spleen, non-tender, other (no further episodes of rectal bleed), soft, No ascites, No distended, No firm, No hepatomegaly, No mass, No rebound or guarding, No splenomegaly, No surgical scars, No tender Genitourinary - Male: nl penis Results Result Diagram: 09/21/17 0716 09/20/17 0705 Results 24 hrs Laboratory Tests Test 09/20/17 11:54 09/20/17 12:24 09/20/17 17:14 09/20/17 18:32 Bedside Glucose 172 135 Hemoglobin 9.8 L 10.7 L Hematocrit 31.4 L 33.2 L Test 09/20/17 23:38 09/21/17 00:40 09/21/17 05:27 09/21/17 07:16 Bedside Glucose 121 122 Hemoglobin 9.7 L 10.3 L Hematocrit 30.5 L 31.6 L Test 09/21/17 11:46 Bedside Glucose 176 Medications Medications Current Medications Lorazepam (Ativan) 0.5 mg Q6H PRN IV ANXIETY; Start 09/19/17 at 05:30 Ondansetron HCl (Zofran Inj) 4 mg Q6H PRN IV NAUSEA AND/OR VOMITING; Start at 05:30 Nitroglycerin (Nitroglycerin (Sl Tab) 0.4 Mg) 1 tab Q5M PRN SL CHEST PAIN; Start 09/19/17 at 05:30 Acetaminophen (Tylenol Tab) 650 mg Q6H PRN PO PAIN LEVEL 1-3 OR FEVER; Start 09/19/17 at 05:30 Pantoprazole (Protonix Iv) 40 mg BID@,18 IV Last administered on 09/21/17 05 :28; Admin Dose 40 MG; Start 09/19/17 at 06:00 Atorvastatin Calcium (Lipitor) 80 mg QHS PO Last administered on 09/20/17 20: 33; Admin Dose 80 MG; Start 09/19/17 at 21:00 Sertraline HCl (Zoloft) 25 mg DAILY PO Last administered on 09/21/17 07:57; Admin Dose 25 MG; Start 09/19/17 at 09:00 Diagnostic Test (Pha) (Accu-Chek) 1 ea 02 XX Last administered on 09/20/17 02 :00; Admin Dose 1 EA; Start 09/20/17 at 02:00 Insulin Aspart (Novolog Insulin Pen) NOVOLOG *MILD* ALGORI... Q6 SC Last administered on 09/20/17 12:06; Admin Dose 1 UNIT; Start 09/19/17 at 06:00 Miscellaneous Information 1 ea NOTE XX ; Start 09/19/17 at 06:30 Glucose (Glutose) 15 gm Q15M PRN PO DECREASED GLUCOSE; Start 09/19/17 at 06:30 Glucose (Glutose) 22.5 gm Q15M PRN PO DECREASED GLUCOSE; Start 09/19/17 at 06: 30 Dextrose (D50w Syringe) 25 ml Q15M PRN IV DECREASED GLUCOSE; Start 09/19/17 at 06:30 Dextrose (D50w Syringe) 50 ml Q15M PRN IV DECREASED GLUCOSE; Start 09/19/17 at 06:30 Glucagon (Glucagen) 1 mg Q15M PRN IM DECREASED GLUCOSE; Start 09/19/17 at 06: 30 Glucose (Glutose) 15 gm Q15M PRN BUCCAL DECREASED GLUCOSE; Start 09/19/17 at 06:30 Aspirin (Aspirin) 81 mg DAILY PO Last administered on 09/21/17 07:57; Admin Dose 81 MG; Start 09/20/17 at 09:30 Clopidogrel Bisulfate (plaVIX) 75 mg DAILY PO Last administered on 09/21/17 07 :57; Admin Dose 75 MG; Start 09/20/17 at 09:30 Metoprolol Tartrate (Lopressor) 25 mg BID PO Last administered on 09/21/17 07: 57; Admin Dose 25 MG; Start 09/20/17 at 21:00 MALACHI HARRIS Sep 21, 2017 11:55 MALACHI HARRIS Sep 21, 2017 11:55
--- NOTE | 2017-09-21 15:46 | PN ---
Date/Time of Note Date/Time of Note DATE: 09/21/17 TIME: 15:43 Assessment/Plan VTE Prophylaxis VTE Prophylaxis Intervention: other Lines/Catheters IV C[facility] Type ([facility] Peripheral IV Assessment/Plan Chief Complaint/Hosp Course 67 yo male with AVR and s/p CABG and recent PCI for NSTEMi presneting wtih rectal bleeding - Plan for colonoscopy Tuesday CAD s/p CABG/PCI: - Continue aspirin plavix throughout [place]-procedure period given recent stent - Contniue statin - BB Thrombocytopneia: - Resolved, suspect mild HIT DMII; - AISS h/o AVR: - Resume coumadin at discharge per Yun Taylor/Velvet Discharge folowign colonoscopy Problems: Subjective 24 Hr Interval Summary Free Text/Dictation No change to clinical status Planning for colonoscopy on Tuesday per Dr Montaño Exam/Review of Systems Vital Signs Vitals Vital Signs Date Time Temp Pulse Resp B/P Pulse Ox O2 Delivery O2 Flow Rate FiO2 09/21/17 12:10 70 09/21/17 12:00 98.3 18 112/65 97 09/19/17 13:25 Room Air Intake and Output 09/20/17 09/20/17 09/21/17 15:00 23:00 07:00 Intake Total 600 ml 400 ml Balance 600 ml 400 ml Exam Constitutional: alert, oriented, well developed Psych: nl mood/affect, no complaints Head: atraumatic, normocephalic Eyes: EOMI, PERRL, nl conjunctiva, nl lids, nl sclera ENMT: nl external ears & nose, nl lips & teeth, nl nasal mucosa & septum Neck: non-tender, supple Respiratory: clear to auscultation, normal air movement Cardiovascular: nl pulses, regular rate and rhythm Gastrointestinal: nl liver, spleen, non-tender, soft Musculoskeletal: nl extremities to inspection, nl gait and stance Extremities: normal pulses Neurological: FLOOR SCRAPER II-XII intact, nl mental status, nl speech, nl strength Skin: nl turgor, No rash or lesions Lymph: nl lymph nodes Results Result Diagram: 09/21/17 1338 09/20/17 0705 Results 24 hrs Laboratory Tests Test 09/20/17 17:14 09/20/17 18:32 09/20/17 23:38 09/21/17 00:40 Bedside Glucose 135 121 Hemoglobin 10.7 L 9.7 L Hematocrit 33.2 L 30.5 L Test 09/21/17 05:27 09/21/17 07:16 09/21/17 11:46 09/21/17 13:38 Bedside Glucose 122 176 Hemoglobin 10.3 L 10.8 L Hematocrit 31.6 L 33.5 L Medications Medications Current Medications Lorazepam (Ativan) 0.5 mg Q6H PRN IV ANXIETY; Start 09/19/17 at 05:30 Ondansetron HCl (Zofran Inj) 4 mg Q6H PRN IV NAUSEA AND/OR VOMITING; Start at 05:30 Nitroglycerin (Nitroglycerin (Sl Tab) 0.4 Mg) 1 tab Q5M PRN SL CHEST PAIN; Start 09/19/17 at 05:30 Acetaminophen (Tylenol Tab) 650 mg Q6H PRN PO PAIN LEVEL 1-3 OR FEVER; Start 09/19/17 at 05:30 Pantoprazole (Protonix Iv) 40 mg BID@06,18 IV Last administered on 09/21/17 05 :28; Admin Dose 40 MG; Start 09/19/17 at 06:00 Atorvastatin Calcium (Lipitor) 80 mg QHS PO Last administered on 09/20/17 20: 33; Admin Dose 80 MG; Start 09/19/17 at 21:00 Sertraline HCl (Zoloft) 25 mg DAILY PO Last administered on 09/21/17 07:57; Admin Dose 25 MG; Start 09/19/17 at 09:00 Diagnostic Test (Pha) (Accu-Chek) 1 ea 02 XX Last administered on 09/20/17 02 :00; Admin Dose 1 EA; Start 09/20/17 at 02:00 Insulin Aspart (Novolog Insulin Pen) NOVOLOG *MILD* ALGORI... Q6 SC Last administered on 09/21/17 11:54; Admin Dose 1 UNIT; Start 09/19/17 at 06:00 Miscellaneous Information 1 ea NOTE XX ; Start 09/19/17 at 06:30 Glucose (Glutose) 15 gm Q15M PRN PO DECREASED GLUCOSE; Start 09/19/17 at 06:30 Glucose (Glutose) 22.5 gm Q15M PRN PO DECREASED GLUCOSE; Start 09/19/17 at 06: 30 Dextrose (D50w Syringe) 25 ml Q15M PRN IV DECREASED GLUCOSE; Start 09/19/17 at 06:30 Dextrose (D50w Syringe) 50 ml Q15M PRN IV DECREASED GLUCOSE; Start 09/19/17 at 06:30 Glucagon (Glucagen) 1 mg Q15M PRN IM DECREASED GLUCOSE; Start 09/19/17 at 06: 30 Glucose (Glutose) 15 gm Q15M PRN BUCCAL DECREASED GLUCOSE; Start 09/19/17 at 06:30 Aspirin (Aspirin) 81 mg DAILY PO Last administered on 09/21/17 07:57; Admin Dose 81 MG; Start 09/20/17 at 09:30; Status Future hold Clopidogrel Bisulfate (plaVIX) 75 mg DAILY PO Last administered on 09/21/17 07 :57; Admin Dose 75 MG; Start 09/20/17 at 09:30; Status Future hold Metoprolol Tartrate (Lopressor) 25 mg BID PO Last administered on 09/21/17 07: 57; Admin Dose 25 MG; Start 09/20/17 at 21:00 Bisacodyl (Dulcolax) 10 mg ONCE ONCE PO ; Start 09/22/17 at 12:00; Stop at 12:01 Magnesium Citrate (Citroma) 300 ml ONCE ONCE PO ; Start 09/22/17 at 17:30; Stop 09/22/17 at 17:31 Polyethylene Glycol (Miralax) 119 gm ONCE ONCE PO ; Start 09/22/17 at 18:30; Stop 09/22/17 at 18:31 ADRIAN WHEELER MD Sep 21, 2017 15:46
[2017-09-21] MEDS ORDERED: PANTOPRAZOLE (EC) 40 MG TAB PO SCH (18:00)
--- NOTE | 2017-09-21 19:53 | CONS ---
Date/Time of Note Date/Time of Note DATE: 09/21/17 TIME: 19:52 Assessment/Plan Assessment/Plan Chief Complaint/Hosp Course Assessment: Hematochezia Recent inferoposterior STEMI - PCI to 99% ostial LM and 99% SVG-RCA (09/09/2017) , mildly elevated troponins now likely downtrending from prior STEMI Coronary artery disease - status post CABG: CARTWRIGHT-LAD, SVG-diag, SVG-RCA (2016) Status post bioprosthetic AVR (09/02/2017) - normal function on echocardiogram ( 09/09/2017) Hypertension Dyslipidemia Diabetes mellitus History of heparin-induced thrombocytopenia - now normal platelets Pre-operative cardiac evaluation - possible colonoscopy Recommendations: High cardiac risk patient (given recent STEMI) planned for low cardiac risk procedure (colonoscopy). Patient without evidence of unstable cardiac condition , and is optimized for procedure from cardiac standpoint if he needs it. -continue aspirin 81mg and clopidogrel 75mg daily, monitor hemoglobin -continue metoprolol 25mg BID -continue atorvastatin 80mg daily Problems: Consultation Date/Type/Reason Admit Date/Time Sep 19, 2017 at 03:28 Initial Consult Date 09/20/17 Type of Consultation: Cardiology 24 HR Interval Summary Free Text/Dictation No further hematochezia. Hemoglobin stable. Planning for colonoscopy. Detailed Summary Additional Comments 14 point review of systems without changes. Exam/Review of Systems Vital Signs Vitals Vital Signs Date Time Temp Pulse Resp B/P Pulse Ox O2 Delivery O2 Flow Rate FiO2 09/21/17 16:14 79 09/21/17 16:01 98.5 18 114/69 96 09/19/17 13:25 Room Air Intake and Output 09/20/17 09/20/17 09/21/17 15:00 23:00 07:00 Intake Total 600 ml 400 ml Balance 600 ml 400 ml Exam Constitutional: alert, well developed Psych: nl mood/affect, no complaints Head: atraumatic, normocephalic Eyes: nl conjunctiva, nl lids ENMT: nl external ears & nose, nl nasal mucosa & septum Neck: non-tender, supple, No jvd Respiratory: clear to auscultation, normal air movement Cardiovascular: regular rate and rhythm, systolic murmur Gastrointestinal: non-tender, soft Musculoskeletal: nl extremities to inspection, No joint tenderness Extremities: No clubbing, No cyanosis, No edema Neurological: nl mental status, nl speech Skin: nl turgor Results Result Diagram: 09/21/17 1855 09/20/17 0705 Results 24 hrs Laboratory Tests Test 09/20/17 23:38 09/21/17 00:40 09/21/17 05:27 09/21/17 07:16 Bedside Glucose 121 122 Hemoglobin 9.7 L 10.3 L Hematocrit 30.5 L 31.6 L Test 09/21/17 11:46 09/21/17 13:38 09/21/17 16:54 09/21/17 18:55 Bedside Glucose 176 183 Hemoglobin 10.8 L 10.6 L Hematocrit 33.5 L 33.3 L Medications Medications Current Medications Lorazepam (Ativan) 0.5 mg Q6H PRN IV ANXIETY; Start 09/19/17 at 05:30 Ondansetron HCl (Zofran Inj) 4 mg Q6H PRN IV NAUSEA AND/OR VOMITING; Start at 05:30 Nitroglycerin (Nitroglycerin (Sl Tab) 0.4 Mg) 1 tab Q5M PRN SL CHEST PAIN; Start 09/19/17 at 05:30 Acetaminophen (Tylenol Tab) 650 mg Q6H PRN PO PAIN LEVEL 1-3 OR FEVER; Start 09/19/17 at 05:30 Pantoprazole (Protonix Iv) 40 mg BID@06,18 IV Last administered on 09/21/17 16 :59; Admin Dose 40 MG; Start 09/19/17 at 06:00 Atorvastatin Calcium (Lipitor) 80 mg QHS PO Last administered on 09/20/17 20: 33; Admin Dose 80 MG; Start 09/19/17 at 21:00 Sertraline HCl (Zoloft) 25 mg DAILY PO Last administered on 09/21/17 07:57; Admin Dose 25 MG; Start 09/19/17 at 09:00 Diagnostic Test (Pha) (Accu-Chek) 1 ea 02 XX Last administered on 09/20/17 02 :00; Admin Dose 1 EA; Start 09/20/17 at 02:00 Insulin Aspart (Novolog Insulin Pen) NOVOLOG *MILD* ALGORI... Q6 SC Last administered on 09/21/17 17:02; Admin Dose 2 UNIT; Start 09/19/17 at 06:00 Miscellaneous Information 1 ea NOTE XX ; Start 09/19/17 at 06:30 Glucose (Glutose) 15 gm Q15M PRN PO DECREASED GLUCOSE; Start 09/19/17 at 06:30 Glucose (Glutose) 22.5 gm Q15M PRN PO DECREASED GLUCOSE; Start 09/19/17 at 06: 30 Dextrose (D50w Syringe) 25 ml Q15M PRN IV DECREASED GLUCOSE; Start 09/19/17 at 06:30 Dextrose (D50w Syringe) 50 ml Q15M PRN IV DECREASED GLUCOSE; Start 09/19/17 at 06:30 Glucagon (Glucagen) 1 mg Q15M PRN IM DECREASED GLUCOSE; Start 09/19/17 at 06: 30 Glucose (Glutose) 15 gm Q15M PRN BUCCAL DECREASED GLUCOSE; Start 09/19/17 at 06:30 Aspirin (Aspirin) 81 mg DAILY PO Last administered on 09/21/17 07:57; Admin Dose 81 MG; Start 09/20/17 at 09:30; Status Future hold Clopidogrel Bisulfate (plaVIX) 75 mg DAILY PO Last administered on 09/21/17 07 :57; Admin Dose 75 MG; Start 09/20/17 at 09:30; Status Future hold Metoprolol Tartrate (Lopressor) 25 mg BID PO Last administered on 09/21/17 07: 57; Admin Dose 25 MG; Start 09/20/17 at 21:00 Bisacodyl (Dulcolax) 10 mg ONCE ONCE PO ; Start 09/22/17 at 12:00; Stop at 12:01 Magnesium Citrate (Citroma) 300 ml ONCE ONCE PO ; Start 09/22/17 at 17:30; Stop 09/22/17 at 17:31 Polyethylene Glycol (Miralax) 119 gm ONCE ONCE PO ; Start 09/22/17 at 18:30; Stop 09/22/17 at 18:31 TINA MARCUM MD Sep 21, 2017 19:53
[2017-09-21] MEDS: ATORVASTATIN 80 MG TAB PO SCH (20:28)
[2017-09-22] VITALS (12 sets, daily range): BP systolic 91–124; BP diastolic 51–88; PULSE 63–95; RESP 18–20
[2017-09-22] MEDS: INSULIN ASPART [NOVOLOG] 3 ML PEN SC SCH ×4 (00:21→17:49)
[2017-09-22] MEDS: ACCU-CHEK XX SCH (02:00)
[2017-09-22] MEDS: PANTOPRAZOLE 40 MG INJ IV SCH ×2 (05:18→17:11)
[2017-09-22] MEDS: ASPIRIN 81 MG TAB PO SCH (08:59)
[2017-09-22] MEDS: CLOPIDOGREL 75 MG TAB PO SCH (08:59)
[2017-09-22] MEDS: SERTRALINE 50 MG TAB PO SCH (09:00)
[2017-09-22] MEDS: METOPROLOL 25 MG TAB PO SCH ×2 (09:00→20:48)
--- NOTE | 2017-09-22 10:42 | PN ---
Date/Time of Note Date/Time of Note DATE: 09/22/17 TIME: 10:30 Assessment/Plan VTE Prophylaxis VTE Prophylaxis Intervention: SCD's Lines/Catheters IV [facility] Type [facility] [place] Assessment/Plan Chief Complaint/Hosp Course Summary Assessment and Plan: Assessment: Hematochezia Post CABG x3 vessels Status post biosynthetic valve replacement Recent [place]- 11 days ago Plan: Patient cleared by cardiology Will proceed with colonoscopy on Plavix and asa- as patient high risk cardiac- recent [place]- Tuesday Continue to monitor H/H Patient seen in collaboration with Dr. Montaño Subjective: Course reviewed with nursing staff Patient interviewed and examined All labs, imaging and other results reviewed The patient feels well no further episodes of rectal bleeding, patient states would like to move forward with colonoscopy Discussed plan (use of an drug regulatory affairs specialist) plan for colonoscopy tomorrow, patient made aware this will only be diagnostic evaluation as patient is on anticoagulant therapy, and considered high risk for bleeding. Future plan pending results of colonoscopy. Problems: Exam/Review of Systems Vital Signs Vitals Vital Signs Date Time Temp Pulse Resp B/P Pulse Ox O2 Delivery O2 Flow Rate FiO2 09/22/17 08:12 74 09/22/17 08:10 98.3 18 92/51 96 09/19/17 13:25 Room Air Intake and Output 09/21/17 09/21/17 09/22/17 15:00 23:00 07:00 Intake Total 1000 ml 550 ml Balance 1000 ml 550 ml Results Result Diagram: 09/22/17 0634 09/20/17 0705 Results 24 hrs Laboratory Tests Test 09/21/17 11:46 09/21/17 13:38 09/21/17 16:54 09/21/17 18:55 Bedside Glucose 176 183 Hemoglobin 10.8 L 10.6 L Hematocrit 33.5 L 33.3 L Test 09/22/17 00:12 09/22/17 00:54 09/22/17 05:17 09/22/17 06:34 Bedside Glucose 161 159 Hemoglobin 10.5 L 10.6 L Hematocrit 33.0 L 33.8 L Test 09/22/17 08:17 Bedside Glucose 145 Medications Medications Current Medications Lorazepam (Ativan) 0.5 mg Q6H PRN IV ANXIETY; Start 09/19/17 at 05:30 Ondansetron HCl (Zofran Inj) 4 mg Q6H PRN IV NAUSEA AND/OR VOMITING; Start at 05:30 Nitroglycerin (Nitroglycerin (Sl Tab) 0.4 Mg) 1 tab Q5M PRN SL CHEST PAIN; Start 09/19/17 at 05:30 Acetaminophen (Tylenol Tab) 650 mg Q6H PRN PO PAIN LEVEL 1-3 OR FEVER; Start 09/19/17 at 05:30 Pantoprazole (Protonix Iv) 40 mg BID@,18 IV Last administered on 09/22/17 05 :18; Admin Dose 40 MG; Start 09/19/17 at 06:00 Atorvastatin Calcium (Lipitor) 80 mg QHS PO Last administered on 09/21/17 20: 28; Admin Dose 80 MG; Start 09/19/17 at 21:00 Sertraline HCl (Zoloft) 25 mg DAILY PO Last administered on 09/22/17 09:00; Admin Dose 25 MG; Start 09/19/17 at 09:00 Diagnostic Test (Pha) (Accu-Chek) 1 ea 02 XX Last administered on 09/20/17 02 :00; Admin Dose 1 EA; Start 09/20/17 at 02:00 Insulin Aspart (Novolog Insulin Pen) NOVOLOG *MILD* ALGORI... Q6 SC Last administered on 09/22/17 05:23; Admin Dose 1 UNIT; Start 09/19/17 at 06:00 Miscellaneous Information 1 ea NOTE XX ; Start 09/19/17 at 06:30 Glucose (Glutose) 15 gm Q15M PRN PO DECREASED GLUCOSE; Start 09/19/17 at 06:30 Glucose (Glutose) 22.5 gm Q15M PRN PO DECREASED GLUCOSE; Start 09/19/17 at 06: 30 Dextrose (D50w Syringe) 25 ml Q15M PRN IV DECREASED GLUCOSE; Start 09/19/17 at 06:30 Dextrose (D50w Syringe) 50 ml Q15M PRN IV DECREASED GLUCOSE; Start 09/19/17 at 06:30 Glucagon (Glucagen) 1 mg Q15M PRN IM DECREASED GLUCOSE; Start 09/19/17 at 06: 30 Glucose (Glutose) 15 gm Q15M PRN BUCCAL DECREASED GLUCOSE; Start 09/19/17 at 06:30 Aspirin (Aspirin) 81 mg DAILY PO Last administered on 09/22/17 08:59; Admin Dose 81 MG; Start 09/20/17 at 09:30; Status Future hold Clopidogrel Bisulfate (plaVIX) 75 mg DAILY PO Last administered on 09/22/17 08 :59; Admin Dose 75 MG; Start 09/20/17 at 09:30; Status Future hold Metoprolol Tartrate (Lopressor) 25 mg BID PO Last administered on 09/22/17 09: 00; Admin Dose 25 MG; Start 09/20/17 at 21:00 Bisacodyl (Dulcolax) 10 mg ONCE ONCE PO ; Start 09/22/17 at 12:00; Stop at 12:01 Magnesium Citrate (Citroma) 300 ml ONCE ONCE PO ; Start 09/22/17 at 17:30; Stop 09/22/17 at 17:31 Polyethylene Glycol (Miralax) 119 gm ONCE ONCE PO ; Start 09/22/17 at 18:30; Stop 09/22/17 at 18:31 MALACHI HARRIS Sep 22, 2017 10:42
--- NOTE | 2017-09-22 10:42 | PN ---
Date/Time of Note Date/Time of Note DATE: 09/22/17 TIME: 10:30 Assessment/Plan VTE Prophylaxis VTE Prophylaxis Intervention: SCD's Lines/Catheters IV C[facility]from [facility] Saline Lock Assessment/Plan Chief Complaint/Hosp Course Summary Assessment and Plan: Assessment: Hematochezia Post CABG x3 vessels Status post biosynthetic valve replacement Recent LA- 11 days ago Plan: Patient cleared by cardiology Will proceed with colonoscopy on Plavix and asa- as patient high risk cardiac- recent LA- Tuesday Continue to monitor H/H Patient seen in collaboration with Dr. Montaño Subjective: Course reviewed with nursing staff Patient interviewed and examined All labs, imaging and other results reviewed The patient feels well no further episodes of rectal bleeding, patient states would like to move forward with colonoscopy Discussed plan (use of an spanish interpreter) plan for colonoscopy tomorrow, patient made aware this will only be diagnostic evaluation as patient is on anticoagulant therapy, and considered high risk for bleeding. Future plan pending results of colonoscopy. Problems: Exam/Review of Systems Vital Signs Vitals Vital Signs Date Time Temp Pulse Resp B/P Pulse Ox O2 Delivery O2 Flow Rate FiO2 09/22/17 08:12 74 09/22/17 08:10 98.3 18 92/51 96 09/19/17 13:25 Room Air Intake and Output 09/21/17 09/21/17 09/22/17 15:00 23:00 07:00 Intake Total 1000 ml 550 ml Balance 1000 ml 550 ml Results Result Diagram: 09/22/17 0634 09/20/17 0705 Results 24 hrs Laboratory Tests Test 09/21/17 11:46 09/21/17 13:38 09/21/17 16:54 09/21/17 18:55 Bedside Glucose 176 183 Hemoglobin 10.8 L 10.6 L Hematocrit 33.5 L 33.3 L Test 09/22/17 00:12 09/22/17 00:54 09/22/17 05:17 09/22/17 06:34 Bedside Glucose 161 159 Hemoglobin 10.5 L 10.6 L Hematocrit 33.0 L 33.8 L Test 09/22/17 08:17 Bedside Glucose 145 Medications Medications Current Medications Lorazepam (Ativan) 0.5 mg Q6H PRN IV ANXIETY; Start 09/19/17 at 05:30 Ondansetron HCl (Zofran Inj) 4 mg Q6H PRN IV NAUSEA AND/OR VOMITING; Start at 05:30 Nitroglycerin (Nitroglycerin (Sl Tab) 0.4 Mg) 1 tab Q5M PRN SL CHEST PAIN; Start 09/19/17 at 05:30 Acetaminophen (Tylenol Tab) 650 mg Q6H PRN PO PAIN LEVEL 1-3 OR FEVER; Start 09/19/17 at 05:30 Pantoprazole (Protonix Iv) 40 mg BID@,18 IV Last administered on 09/22/17 05 :18; Admin Dose 40 MG; Start 09/19/17 at 06:00 Atorvastatin Calcium (Lipitor) 80 mg QHS PO Last administered on 09/21/17 20: 28; Admin Dose 80 MG; Start 09/19/17 at 21:00 Sertraline HCl (Zoloft) 25 mg DAILY PO Last administered on 09/22/17 09:00; Admin Dose 25 MG; Start 09/19/17 at 09:00 Diagnostic Test (Pha) (Accu-Chek) 1 ea 02 XX Last administered on 09/20/17 02 :00; Admin Dose 1 EA; Start 09/20/17 at 02:00 Insulin Aspart (Novolog Insulin Pen) NOVOLOG *MILD* ALGORI... Q6 SC Last administered on 09/22/17 05:23; Admin Dose 1 UNIT; Start 09/19/17 at 06:00 Miscellaneous Information 1 ea NOTE XX ; Start 09/19/17 at 06:30 Glucose (Glutose) 15 gm Q15M PRN PO DECREASED GLUCOSE; Start 09/19/17 at 06:30 Glucose (Glutose) 22.5 gm Q15M PRN PO DECREASED GLUCOSE; Start 09/19/17 at 06: 30 Dextrose (D50w Syringe) 25 ml Q15M PRN IV DECREASED GLUCOSE; Start 09/19/17 at 06:30 Dextrose (D50w Syringe) 50 ml Q15M PRN IV DECREASED GLUCOSE; Start 09/19/17 at 06:30 Glucagon (Glucagen) 1 mg Q15M PRN IM DECREASED GLUCOSE; Start 09/19/17 at 06: 30 Glucose (Glutose) 15 gm Q15M PRN BUCCAL DECREASED GLUCOSE; Start 09/19/17 at 06:30 Aspirin (Aspirin) 81 mg DAILY PO Last administered on 09/22/17 08:59; Admin Dose 81 MG; Start 09/20/17 at 09:30; Status Future hold Clopidogrel Bisulfate (plaVIX) 75 mg DAILY PO Last administered on 09/22/17 08 :59; Admin Dose 75 MG; Start 09/20/17 at 09:30; Status Future hold Metoprolol Tartrate (Lopressor) 25 mg BID PO Last administered on 09/22/17 09: 00; Admin Dose 25 MG; Start 09/20/17 at 21:00 Bisacodyl (Dulcolax) 10 mg ONCE ONCE PO ; Start 09/22/17 at 12:00; Stop at 12:01 Magnesium Citrate (Citroma) 300 ml ONCE ONCE PO ; Start 09/22/17 at 17:30; Stop 09/22/17 at 17:31 Polyethylene Glycol (Miralax) 119 gm ONCE ONCE PO ; Start 09/22/17 at 18:30; Stop 09/22/17 at 18:31 MALACHI HARRIS Sep 22, 2017 10:42
[2017-09-22] MEDS ORDERED: BISACODYL (EC) 5 MG TAB PO ONE (12:00)
--- NOTE | 2017-09-22 13:40 | PN ---
Date/Time of Note Date/Time of Note DATE: 09/22/17 TIME: 13:39 Assessment/Plan VTE Prophylaxis VTE Prophylaxis Intervention: other Lines/Catheters IV [facility] Saline Lock Assessment/Plan Chief Complaint/Hosp Course 67 yo male with AVR and s/p CABG and recent PCI for NSTEMi presneting wtih rectal bleeding - Plan for colonoscopy Tuesday CAD s/p CABG/PCI: - Continue aspirin Plavix throughout [place]-procedure period given recent stent - Continue statin - BB Thrombocytopenia: - Resolved, suspect mild HIT DMII; - AISS h/o AVR: - Resume coumadin at discharge per Yun Taylor/Velvet Discharge folowign colonoscopy Problems: Subjective 24 Hr Interval Summary Free Text/Dictation H/H stable Colonoscopy planned for tomorrow Exam/Review of Systems Vital Signs Vitals Vital Signs Date Time Temp Pulse Resp B/P Pulse Ox O2 Delivery O2 Flow Rate FiO2 09/22/17 12:13 63 09/22/17 12:03 98.4 91/53 97 09/22/17 08:10 18 09/19/17 13:25 Room Air Intake and Output 09/21/17 09/21/17 09/22/17 14:59 22:59 06:59 Intake Total 1000 ml 550 ml Balance 1000 ml 550 ml Exam Constitutional: alert, oriented, well developed Psych: nl mood/affect, no complaints Head: atraumatic, normocephalic Eyes: EOMI, PERRL, nl conjunctiva, nl lids, nl sclera ENMT: nl external ears & nose, nl lips & teeth, nl nasal mucosa & septum Neck: non-tender, supple Respiratory: clear to auscultation, normal air movement Cardiovascular: nl pulses, regular rate and rhythm Gastrointestinal: nl liver, spleen, non-tender, soft Musculoskeletal: nl extremities to inspection, nl gait and stance Extremities: normal pulses Neurological: POWER BALLAST MACHINE OPERATOR II-XII intact, nl mental status, nl speech, nl strength Skin: nl turgor, No rash or lesions Lymph: nl lymph nodes Results Result Diagram: 09/22/17 0634 09/20/17 0705 Results 24 hrs Laboratory Tests Test 09/21/17 16:54 09/21/17 18:55 09/22/17 00:12 09/22/17 00:54 Bedside Glucose 183 161 Hemoglobin 10.6 L 10.5 L Hematocrit 33.3 L 33.0 L Test 09/22/17 05:17 09/22/17 06:34 09/22/17 08:17 09/22/17 11:54 Bedside Glucose 159 145 147 Hemoglobin 10.6 L Hematocrit 33.8 L Medications Medications Current Medications Lorazepam (Ativan) 0.5 mg Q6H PRN IV ANXIETY; Start 09/19/17 at 05:30 Ondansetron HCl (Zofran Inj) 4 mg Q6H PRN IV NAUSEA AND/OR VOMITING; Start at 05:30 Nitroglycerin (Nitroglycerin (Sl Tab) 0.4 Mg) 1 tab Q5M PRN SL CHEST PAIN; Start 09/19/17 at 05:30 Acetaminophen (Tylenol Tab) 650 mg Q6H PRN PO PAIN LEVEL 1-3 OR FEVER; Start 09/19/17 at 05:30 Pantoprazole (Protonix Iv) 40 mg BID@,18 IV Last administered on 09/22/17 05 :18; Admin Dose 40 MG; Start 09/19/17 at 06:00 Atorvastatin Calcium (Lipitor) 80 mg QHS PO Last administered on 09/21/17 20: 28; Admin Dose 80 MG; Start 09/19/17 at 21:00 Sertraline HCl (Zoloft) 25 mg DAILY PO Last administered on 09/22/17 09:00; Admin Dose 25 MG; Start 09/19/17 at 09:00 Diagnostic Test (Pha) (Accu-Chek) 1 ea 02 XX Last administered on 09/20/17 02 :00; Admin Dose 1 EA; Start 09/20/17 at 02:00 Insulin Aspart (Novolog Insulin Pen) NOVOLOG *MILD* ALGORI... Q6 SC Last administered on 09/22/17 12:24; Admin Dose 1 UNIT; Start 09/19/17 at 06:00 Miscellaneous Information 1 ea NOTE XX ; Start 09/19/17 at 06:30 Glucose (Glutose) 15 gm Q15M PRN PO DECREASED GLUCOSE; Start 09/19/17 at 06:30 Glucose (Glutose) 22.5 gm Q15M PRN PO DECREASED GLUCOSE; Start 09/19/17 at 06: 30 Dextrose (D50w Syringe) 25 ml Q15M PRN IV DECREASED GLUCOSE; Start 09/19/17 at 06:30 Dextrose (D50w Syringe) 50 ml Q15M PRN IV DECREASED GLUCOSE; Start 09/19/17 at 06:30 Glucagon (Glucagen) 1 mg Q15M PRN IM DECREASED GLUCOSE; Start 09/19/17 at 06: 30 Glucose (Glutose) 15 gm Q15M PRN BUCCAL DECREASED GLUCOSE; Start 09/19/17 at 06:30 Aspirin (Aspirin) 81 mg DAILY PO Last administered on 09/22/17 08:59; Admin Dose 81 MG; Start 09/20/17 at 09:30; Status Future hold Clopidogrel Bisulfate (plaVIX) 75 mg DAILY PO Last administered on 09/22/17 08 :59; Admin Dose 75 MG; Start 09/20/17 at 09:30; Status Future hold Metoprolol Tartrate (Lopressor) 25 mg BID PO Last administered on 09/22/17 09: 00; Admin Dose 25 MG; Start 09/20/17 at 21:00 Magnesium Citrate (Citroma) 300 ml ONCE ONCE PO ; Start 09/22/17 at 17:30; Stop 09/22/17 at 17:31 Polyethylene Glycol (Miralax) 119 gm ONCE ONCE PO ; Start 09/22/17 at 18:30; Stop 09/22/17 at 18:31 ADRIAN WHEELER MD Sep 22, 2017 13:39
[2017-09-22] MEDS ORDERED: MAGNESIUM CITRATE 300 ML BTL PO ONE (17:30)
[2017-09-22] MEDS ORDERED: POLYETHYLENE GLYCOL 3350 119 GM POWDER PO ONE (18:30)
[2017-09-22] MEDS: ATORVASTATIN 80 MG TAB PO SCH (20:48)
[2017-09-23] VITALS (17 sets, daily range): BP systolic 89–149; BP diastolic 49–71; PULSE 63–83; RESP 14–21
[2017-09-23] MEDS: ACCU-CHEK XX SCH (02:00)
[2017-09-23] MEDS: PANTOPRAZOLE 40 MG INJ IV SCH ×2 (05:54→18:26)
[2017-09-23] MEDS: INSULIN ASPART [NOVOLOG] 3 ML PEN SC SCH ×5 (05:55→20:55)
[2017-09-23] MEDS ORDERED: POLYETHYLENE GLYCOL 3350 119 GM POWDER PO ONE (06:00)
[2017-09-23] MEDS ORDERED: BISACODYL (EC) 5 MG TAB PO ONE (08:00)
[2017-09-23] MEDS: CLOPIDOGREL 75 MG TAB PO SCH ×2 (09:00→10:18)
[2017-09-23] MEDS: ASPIRIN 81 MG TAB PO SCH ×2 (09:00→10:18)
[2017-09-23] MEDS: SERTRALINE 50 MG TAB PO SCH (09:45)
[2017-09-23] MEDS: METOPROLOL 25 MG TAB PO SCH ×2 (09:46→20:56)
--- NOTE | 2017-09-23 14:40 | CONS ---
Date/Time of Note Date/Time of Note DATE: 09/23/17 TIME: 14:38 Assessment/Plan Assessment/Plan Chief Complaint/Hosp Course Assessment: Hematochezia - awaiting colonoscopy Recent inferoposterior STEMI - PCI to 99% ostial LM and 99% SVG-RCA (09/09/2017) , mildly elevated troponins now likely downtrending from prior STEMI Coronary artery disease - status post CABG: CARTWRIGHT-LAD, SVG-diag, SVG-RCA (2016) Status post bioprosthetic AVR (09/02/2017) - normal function on echocardiogram ( 09/09/2017) Hypertension Dyslipidemia Diabetes mellitus History of heparin-induced thrombocytopenia - now normal platelets Recommendations: -continue aspirin 81mg and clopidogrel 75mg daily, monitor hemoglobin -defer anticoagulation to outpatient setting -continue metoprolol 25mg BID -continue atorvastatin 80mg daily Problems: Consultation Date/Type/Reason Admit Date/Time Sep 19, 2017 at 03:28 Initial Consult Date 09/20/17 Type of Consultation: Cardiology 24 HR Interval Summary Free Text/Dictation No further hematochezia. Hemoglobin stable. Awaiting colonoscopy. Detailed Summary Additional Comments 14 point review of systems without changes. Exam/Review of Systems Vital Signs Vitals Vital Signs Date Time Temp Pulse Resp B/P Pulse Ox O2 Delivery O2 Flow Rate FiO2 09/23/17 12:50 65 09/23/17 12:01 98.1 19 100/55 98 09/19/17 13:25 Room Air Intake and Output 09/22/17 09/22/17 09/23/17 15:00 23:00 07:00 Intake Total 800 ml 450 ml Balance 800 ml 450 ml Exam Constitutional: alert, well developed Psych: nl mood/affect, no complaints Head: atraumatic, normocephalic Eyes: nl conjunctiva, nl lids ENMT: nl external ears & nose, nl nasal mucosa & septum Neck: non-tender, supple, No jvd Respiratory: clear to auscultation, normal air movement Cardiovascular: regular rate and rhythm, systolic murmur Gastrointestinal: non-tender, soft Musculoskeletal: nl extremities to inspection, No joint tenderness Extremities: No clubbing, No cyanosis, No edema Neurological: nl mental status, nl speech Skin: nl turgor Results Result Diagram: 09/22/17 0634 09/20/17 0705 Results 24 hrs Laboratory Tests Test 09/22/17 17:48 09/22/17 23:48 09/23/17 05:54 09/23/17 11:36 Bedside Glucose 129 136 122 133 Medications Medications Current Medications Lorazepam (Ativan) 0.5 mg Q6H PRN IV ANXIETY; Start 09/19/17 at 05:30 Ondansetron HCl (Zofran Inj) 4 mg Q6H PRN IV NAUSEA AND/OR VOMITING; Start at 05:30 Nitroglycerin (Nitroglycerin (Sl Tab) 0.4 Mg) 1 tab Q5M PRN SL CHEST PAIN; Start 09/19/17 at 05:30 Acetaminophen (Tylenol Tab) 650 mg Q6H PRN PO PAIN LEVEL 1-3 OR FEVER; Start 09/19/17 at 05:30 Pantoprazole (Protonix Iv) 40 mg BID@18 IV Last administered on 09/23/17 05 :54; Admin Dose 40 MG; Start 09/19/17 at 06:00 Atorvastatin Calcium (Lipitor) 80 mg QHS PO Last administered on 09/22/17 20: 48; Admin Dose 80 MG; Start 09/19/17 at 21:00 Sertraline HCl (Zoloft) 25 mg DAILY PO Last administered on 09/23/17 09:45; Admin Dose 25 MG; Start 09/19/17 at 09:00 Diagnostic Test (Pha) (Accu-Chek) 1 ea 02 XX Last administered on 09/20/17 02 :00; Admin Dose 1 EA; Start 09/20/17 at 02:00 Insulin Aspart (Novolog Insulin Pen) NOVOLOG *MILD* ALGORI... Q6 SC Last administered on 09/22/17 12:24; Admin Dose 1 UNIT; Start 09/19/17 at 06:00 Miscellaneous Information 1 ea NOTE XX ; Start 09/19/17 at 06:30 Glucose (Glutose) 15 gm Q15M PRN PO DECREASED GLUCOSE; Start 09/19/17 at 06:30 Glucose (Glutose) 22.5 gm Q15M PRN PO DECREASED GLUCOSE; Start 09/19/17 at 06: 30 Dextrose (D50w Syringe) 25 ml Q15M PRN IV DECREASED GLUCOSE; Start 09/19/17 at 06:30 Dextrose (D50w Syringe) 50 ml Q15M PRN IV DECREASED GLUCOSE; Start 09/19/17 at 06:30 Glucagon (Glucagen) 1 mg Q15M PRN IM DECREASED GLUCOSE; Start 09/19/17 at 06: 30 Glucose (Glutose) 15 gm Q15M PRN BUCCAL DECREASED GLUCOSE; Start 09/19/17 at 06:30 Aspirin (Aspirin) 81 mg DAILY PO Last administered on 09/23/17 10:18; Admin Dose 81 MG; Start 09/20/17 at 09:30; Status Future hold Clopidogrel Bisulfate (plaVIX) 75 mg DAILY PO Last administered on 09/23/17 10 :18; Admin Dose 75 MG; Start 09/20/17 at 09:30; Status Future hold Metoprolol Tartrate (Lopressor) 25 mg BID PO Last administered on 09/23/17 09: 46; Admin Dose 25 MG; Start 09/20/17 at 21:00 TINA MARCUM MD Sep 23, 2017 14:40
--- NOTE | 2017-09-23 15:55 | PN ---
Date/Time of Note Date/Time of Note DATE: 09/23/17 TIME: 15:54 Assessment/Plan VTE Prophylaxis VTE Prophylaxis Intervention: other Lines/Catheters [facility] Saline Lock Assessment/Plan Chief Complaint/Hosp Course 67 yo male with AVR and s/p CABG and recent PCI for NSTEMi presneting [facility] rectal bleeding GI bleed: - Plan for colonoscopy Tuesday CAD s/p CABG/PCI: - Continue aspirin Plavix throughout [place]-procedure period given recent stent - Continue statin - BB Thrombocytopenia: - Resolved, suspect mild HIT DMII; - AISS h/o AVR: - Resume coumadin at discharge per Yun Taylor/Velvet Discharge folowign colonoscopy Problems: Subjective 24 Hr Interval Summary Free Text/Dictation Awaiting colnosocopy, no change to clinical status Exam/Review of Systems Vital Signs Vitals Vital Signs Date Time Temp Pulse Resp B/P Pulse Ox O2 Delivery O2 Flow Rate FiO2 09/23/17 15:31 98.1 65 19 126/67 97 09/19/17 13:25 Room Air Intake and Output 09/22/17 09/22/17 09/23/17 14:59 22:59 06:59 Intake Total 800 ml 450 ml Balance 800 ml 450 ml Results Result Diagram: 09/22/17 0634 09/20/17 0705 Results 24 hrs Laboratory Tests Test 09/22/17 17:48 09/22/17 23:48 09/23/17 05:54 09/23/17 11:36 Bedside Glucose 129 136 122 133 Medications Medications Current Medications Lorazepam (Ativan) 0.5 mg Q6H PRN IV ANXIETY; Start 09/19/17 at 05:30 Ondansetron HCl (Zofran Inj) 4 mg Q6H PRN IV NAUSEA AND/OR VOMITING; Start at 05:30 Nitroglycerin (Nitroglycerin (Sl Tab) 0.4 Mg) 1 tab Q5M PRN SL CHEST PAIN; Start 09/19/17 at 05:30 Acetaminophen (Tylenol Tab) 650 mg Q6H PRN PO PAIN LEVEL 1-3 OR FEVER; Start 09/19/17 at 05:30 Pantoprazole (Protonix Iv) 40 mg BID@06,18 IV Last administered on 09/23/17t 05 :54; Admin Dose 40 MG; Start 09/19/17 at 06:00 Atorvastatin Calcium (Lipitor) 80 mg QHS PO Last administered on 09/22/17 20: 48; Admin Dose 80 MG; Start 09/19/17 at 21:00 Sertraline HCl (Zoloft) 25 mg DAILY PO Last administered on 09/23/17 09:45; Admin Dose 25 MG; Start 09/19/17 at 09:00 Diagnostic Test (Pha) (Accu-Chek) 1 ea 02 XX Last administered on 09/20/17 02 :00; Admin Dose 1 EA; Start 09/20/17 at 02:00 Insulin Aspart (Novolog Insulin Pen) NOVOLOG *MILD* ALGORI... Q6 SC Last administered on 09/22/17 12:24; Admin Dose 1 UNIT; Start 09/19/17 at 06:00 Miscellaneous Information 1 ea NOTE XX ; Start 09/19/17 at 06:30 Glucose (Glutose) 15 gm Q15M PRN PO DECREASED GLUCOSE; Start 09/19/17 at 06:30 Glucose (Glutose) 22.5 gm Q15M PRN PO DECREASED GLUCOSE; Start 09/19/17 at 06: 30 Dextrose (D50w Syringe) 25 ml Q15M PRN IV DECREASED GLUCOSE; Start 09/19/17 at 06:30 Dextrose (D50w Syringe) 50 ml Q15M PRN IV DECREASED GLUCOSE; Start 09/19/17 at 06:30 Glucagon (Glucagen) 1 mg Q15M PRN IM DECREASED GLUCOSE; Start 09/19/17 at 06: 30 Glucose (Glutose) 15 gm Q15M PRN BUCCAL DECREASED GLUCOSE; Start 09/19/17 at 06:30 Aspirin (Aspirin) 81 mg DAILY PO Last administered on 09/23/17 10:18; Admin Dose 81 MG; Start 09/20/17 at 09:30; Status Future hold Clopidogrel Bisulfate (plaVIX) 75 mg DAILY PO Last administered on 09/23/17 10 :18; Admin Dose 75 MG; Start 09/20/17 at 09:30; Status Future hold Metoprolol Tartrate (Lopressor) 25 mg BID PO Last administered on 09/23/17 09: 46; Admin Dose 25 MG; Start 09/20/17 at 21:00 ADRIAN WHEELER MD Sep 23, 2017 15:55
[2017-09-23] MEDS ORDERED: PROPOFOL 20 ML ONE (17:35)
--- NOTE | 2017-09-23 18:00 | OPPN ---
Date/Time of Note Date/Time of Note DATE: 09/23/17 TIME: 17:55 Proc Note GI Procedure Date 09/23/17 Indication: other (Hematochezia) Pre-procedure Diagnosis Hematochezia while anticoagulated Post-procedure Diagnosis Impression: 2 small polyps in the rectosigmoid measuring 5 and 7 mm. Polyps were left and tortuous patient is anticoagulated Moderate-sized internal hemorrhoids Suboptimal preparation otherwise no gross lesions. Plan: No contraindication to anticoagulation Patient will required early follow-up in 6 months for polypectomy . Procedure Performed: Colonoscopy Surgeon JUSTYN MEYERS MD See signature line Internal Control Manager none Anesthesia Type: MAC Anesthesiologist: KAYLEY SHANKAR MD Tourniquet Time none EBL none Transfusion required none Biopsy 1: None Grafts/Implants none Tubes/Drains none Complication(s) none Disposition: PACU Procedure Description After informed consent, with the patient/relatives understanding the procedure, its indications and potential risks and complications, including but not limited to: Allergic reaction, bleeding, perforation, infection, and after all pertinent questions were answered to the patient's satisfaction, the patient/ relatives signed the witnessed informed consent. Following this, premedication was administered slowly IV push under careful cardiovascular and respiratory monitoring with pulse OXIMETRY, automatic blood pressure, and equipment monitor phototypesetting. Once the sedative effect was achieved, the patient was placed in the left lateral decubitus position, digital rectal examination was performed. The colonoscope was then introduced and advanced under visual control throughout all segments of the colon including: []the rectum, sigmoid, descending colon, splenic flexure, transverse colon, hepatic flexure, ascending colon and finally reaching the cecum which was clearly identified by transillumination, finger indentation and the ileocecal valve. Careful examination of the mucosa of the lower gastrointestinal tract both on insertion as well as withdrawal of the instrument disclosed the following findings: PREPARATION QUALITY: , [fair, procedure completed] RECTAL EXAM: The anorectal area was visualized examined and digital rectal examination performed with the following findings: No evidence of perirectal disease, no masses. COLONIC MUCOSA: The mucosa of all segments of the colon was carefully examined and showed the following findings: There are 2 small polyps in the rectosigmoid area measuring 5 and 7 mm. Polyps were left untouched as the patient is anticoagulated. The preparation is suboptimal but no other lesions appear to be present. The examined mucosa appears within normal limits. There is no evidence of inflammatory changes, diverticular formation, other polyps or neoplasms, vascular malformation, or any other abnormality. Moderate-sized internal hemorrhoids are present The instrument was then withdrawn, the patient tolerated the procedure well and was transferred out of the Endoscopy Suite awake and in good condition to continue recovery under observation. Copies To: CC: JUSTYN MEYERS MD, MORDO MD Sep 23, 2017 18:00
[2017-09-23] MEDS ORDERED: FENTAnyl 50 MCG/ML VIAL IV PRN ×3 (18:30)
[2017-09-23] MEDS ORDERED: MIDAZOLAM 1 MG/ML 2 ML INJ IV PRN (18:30)
[2017-09-23] MEDS ORDERED: LABETALOL HCL 20MG INJ IV PRN (18:30)
[2017-09-23] MEDS ORDERED: METOCLOPRAMIDE 10 MG INJ IV PRN (18:30)
[2017-09-23] MEDS ORDERED: MEPERIDINE 25 MG INJ IV PRN (18:30)
[2017-09-23] MEDS ORDERED: DIPHENHYDRAMINE 50 MG INJ IV PRN (18:30)
[2017-09-23] MEDS ORDERED: ONDANSETRON 4 MG INJ IV PRN (18:30)
[2017-09-23] MEDS ORDERED: EPHEDrine SULFATE 50 MG/5 ML SYG IV PRN (18:30)
[2017-09-23] MEDS ORDERED: hydrALAzine 20 MG INJ IV PRN (18:30)
[2017-09-23] MEDS: ATORVASTATIN 80 MG TAB PO SCH (20:56)
[2017-09-24] VITALS (9 sets, daily range): BP systolic 115–138; BP diastolic 58–91; PULSE 66–71; RESP 19
[2017-09-24] MEDS ORDERED: ACCU-CHEK XX SCH ×2 (02:00)
[2017-09-24] MEDS: PANTOPRAZOLE 40 MG INJ IV SCH (06:07)
[2017-09-24] MEDS: ASPIRIN 81 MG TAB PO SCH (08:48)
[2017-09-24] MEDS: INSULIN ASPART [NOVOLOG] 3 ML PEN SC SCH ×2 (08:48→12:34)
[2017-09-24] MEDS: CLOPIDOGREL 75 MG TAB PO SCH (08:48)
[2017-09-24] MEDS: SERTRALINE 50 MG TAB PO SCH (08:49)
[2017-09-24] MEDS: METOPROLOL 25 MG TAB PO SCH (08:49)
[2017-09-24] MEDS ORDERED: METO-448 PO (12:12)
--- NOTE | 2017-09-24 12:21 | PDOCDIS ---
Discharge Instructions DIAGNOSIS Discharge Diagnosis Hemorrhoids with rectal bleeding CONDITION Patient Condition: Good HOME CARE INSTRUCTIONS: Special Diet: 2GM NA FOLLOW UP/APPOINTMENTS Follow-up Plan Follow in clinic with your promotion producer Dr Verdin and Dr Taylor. Stop taking coumadin until you see these doctors YOU NEED TO KEEP TAKING ASPIRIN AND PLAVIX EVERYDAY WITHOUT MISSING A DOSE Return to the hospital if you have any concerning symptoms ADRIAN WHEELER MD Sep 24, 2017 12:21
--- NOTE | 2017-09-24 12:21 | PDOCDIS ---
Discharge Instructions DIAGNOSIS Discharge Diagnosis Hemorrhoids with rectal bleeding CONDITION Patient Condition: Good HOME CARE INSTRUCTIONS: Special Diet: 2GM NA FOLLOW UP/APPOINTMENTS Follow-up Plan Follow in clinic with your utility tender carding Dr Verdin and Dr Taylor. Stop taking coumadin until you see these doctors YOU NEED TO KEEP TAKING ASPIRIN AND PLAVIX EVERYDAY WITHOUT MISSING A DOSE Return to the hospital if you have any concerning symptoms ADRIAN WHEELER MD Sep 24, 2017 12:21
--- NOTE | 2017-09-24 12:21 | PDOCDIS ---
Discharge Instructions DIAGNOSIS Discharge Diagnosis Hemorrhoids with rectal bleeding CONDITION Patient Condition: Good HOME CARE INSTRUCTIONS: Special Diet: 2GM NA FOLLOW UP/APPOINTMENTS Follow-up Plan Follow in clinic with your dye blender Dr Verdin and Dr Taylor. Stop taking coumadin until you see these doctors YOU NEED TO KEEP TAKING ASPIRIN AND PLAVIX EVERYDAY WITHOUT MISSING A DOSE Return to the hospital if you have any concerning symptoms ADRIAN WHEELER MD Sep 24, 2017 12:21
--- NOTE | 2017-09-24 12:29 | DS ---
Date/Time of Note Date/Time of Note DATE: 09/24/17 TIME: 12:27 Discharge Summary Admission/Discharge Info Admit Date/Time Sep 19, 2017 at 03:28 Discharge Date/Time Discharge Diagnosis Hemorrhoids with rectal bleeding Patient Condition: Good Hx of Present Illness This is a 67-year-old male with a history of CAD with CABG and biosynthetic cardiac valve replacement, both 2 weeks ago, STEMI 10 days ago, status post PCI with placement of stent who presented to the ER complaining of rectal bleeding 2 days. Patient was recently admitted here for STEMI and was discharged last week. During that hospitalization he was also diagnosed with HIT. Given patient was thrombocytopenic, he was not discharged with blood thinners. He was started on Coumadin and also possibly fondaparinux 3 days ago. For the last 2 days, he said he has had 3 bloody bowel movements, which occurs at the end of BM and described as bright red blood. Denied abdominal pain, hematemesis , fever or chills. He also reported having had chest pain yesterday, located in the mid chest, actually at the surgical site. Chest pain is nonradiating with no associated shortness of breath, nausea, vomiting or diaphoresis. He presented with INR of 1.16 and his platelet is 219. Hemoglobin 10.7 and stable Hospital Course 67 yo male with AVR and s/p CABG and recent PCI for NSTEMi [facility] rectal bleeding H/H was stable as were his hemodynamics He was continued on aspirin and plavix given his recent stent. Coumadin was held He underwent colonoscopy showing hemorrhoids and polyps which were not removed given antiplatelets on board. He will undergo repeat c-scope in 6 months for polypectomy Coumadin was held at time of discharge and will be readressed in clinic per Dr Taylor [facility] Active Scripts Metoprolol Tartrate* (Lopressor*) 25 Mg Tab, 25 MG PO BID for 60 Days, #120 TAB Prov:ADRIAN WHEELER MD 09/24/17 Atorvastatin* (Atorvastatin*) 80 Mg Tablet, 80 MG PO QHS, #60 TAB Prov:TATI COULTER 09/13/17 Clopidogrel Bisulfate (Clopidogrel) 75 Mg Tablet, 75 MG PO DAILY, #90 TAB 1 Refill Prov:TATI COULTER 09/13/17 Reported Medications Aspirin (Low Dose Aspirin) 81 Mg Tablet., 81 MG PO DAILY, #30 TAB 09/09/17 Omeprazole* (Omeprazole*) 20 Mg Capsule.dr, 20 MG PO DAILY, #30 CAP 09/09/17 Sertraline Hcl* (Zoloft*) 25 Mg Tablet, 25 MG PO DAILY, #30 TAB 09/09/17 Benazepril Hcl* (Benazepril Hcl*) 10 Mg Tablet, 10 MG PO BID, #60 TAB 09/09/17 Tamsulosin Hcl* (Flomax*) 0.4 Mg Cap.er.24h, 0.4 MG PO DAILY, CAP 09/09/17 Follow-up Plan Follow in clinic with your manager administrative services Dr Verdin and Dr Taylor. Stop taking coumadin until you see these doctors YOU NEED TO KEEP TAKING ASPIRIN AND PLAVIX EVERYDAY WITHOUT MISSING A DOSE Return to the hospital if you have any concerning symptoms Primary Care Provider Sukhi Burleson MD Pending Labs Laboratory Tests Test 09/23/17 18:28 09/23/17 20:43 09/24/17 02:07 09/24/17 08:44 Bedside Glucose 113mg/dL (70-220) 208mg/dL (70-220) 167mg/dL (70-220) 160mg/dL (70-220) ADRIAN WHEELER MD Sep 24, 2017 12:29
--- NOTE | 2017-09-24 12:32 | CONS ---
Date/Time of Note Date/Time of Note DATE: 09/24/17 TIME: 12:29 Assessment/Plan Assessment/Plan Chief Complaint/Hosp Course Hematochezia - colo with polyps and hemorrhoids. Recent inferoposterior STEMI - PCI to 99% ostial LM and 99% SVG-RCA (09/09/2017) , mildly elevated troponins now likely downtrending from prior STEMI Coronary artery disease - status post CABG: CARTWRIGHT-LAD, SVG-diag, SVG-RCA (2016) Status post bioprosthetic AVR (09/02/2017) - normal function on echocardiogram ( 09/09/2017) Hypertension Dyslipidemia Diabetes mellitus History of heparin-induced thrombocytopenia - now normal platelets -continue aspirin 81mg and clopidogrel 75mg daily -defer anticoagulation to outpatient setting with recent bleeding even with INR in normal range, will likely need coumadin for at least 3 months for bio AVR and embolic coronary event if no further bleeding -continue metoprolol 25mg BID -continue atorvastatin 80mg daily -ok for d/c from cardiology standpoint Problems: Consultation Date/Type/Reason Admit Date/Time Sep 19, 2017 at 03:28 Initial Consult Date 09/20/17 Type of Consultation: Cardiology 24 HR Interval Summary Free Text/Dictation [place] yesterday showed polyps (not removed) and hemorrhoids. No further bleeding. Would like to go home. Exam/Review of Systems Vital Signs Vitals Vital Signs Date Time Temp Pulse Resp B/P Pulse Ox O2 Delivery O2 Flow Rate FiO2 09/24/17 12:06 68 09/24/17 11:22 98.3 19 115/68 98 09/23/17 18:08 Room Air Intake and Output 09/23/17 09/23/17 09/24/17 15:00 23:00 07:00 Intake Total 400 ml 600 ml Balance 400 ml 600 ml Exam Constitutional: alert, oriented Psych: nl mood/affect, no complaints Head: atraumatic, normocephalic Neck: No jvd Respiratory: clear to auscultation, No crackles/rales Cardiovascular: regular rate and rhythm, No edema Gastrointestinal: non-tender, soft Neurological: nl mental status, nl speech Results Result Diagram: 09/22/17 0634 09/20/17 0705 Results 24 hrs Laboratory Tests Test 09/23/17 18:28 09/23/17 20:43 09/24/17 02:07 09/24/17 08:44 Bedside Glucose 113 208 167 160 Medications Medications Current Medications Lorazepam (Ativan) 0.5 mg Q6H PRN IV ANXIETY; Start 09/19/17 at 05:30 Ondansetron HCl (Zofran Inj) 4 mg Q6H PRN IV NAUSEA AND/OR VOMITING; Start at 05:30 Nitroglycerin (Nitroglycerin (Sl Tab) 0.4 Mg) 1 tab Q5M PRN SL CHEST PAIN; Start 09/19/17 at 05:30 Acetaminophen (Tylenol Tab) 650 mg Q6H PRN PO PAIN LEVEL 1-3 OR FEVER; Start 09/19/17 at 05:30 Pantoprazole (Protonix Iv) 40 mg BID@18 IV Last administered on 09/24/17 06 :07; Admin Dose 40 MG; Start 09/19/17 at 06:00 Atorvastatin Calcium (Lipitor) 80 mg QHS PO Last administered on 09/23/17 20: 56; Admin Dose 80 MG; Start 09/19/17 at 21:00 Sertraline HCl (Zoloft) 25 mg DAILY PO Last administered on 09/24/17 08:49; Admin Dose 25 MG; Start 09/19/17 at 09:00 Miscellaneous Information 1 ea NOTE XX ; Start 09/19/17 at 06:30 Glucose (Glutose) 15 gm Q15M PRN PO DECREASED GLUCOSE; Start 09/19/17 at 06:30 Glucose (Glutose) 22.5 gm Q15M PRN PO DECREASED GLUCOSE; Start 09/19/17 at 06: 30 Dextrose (D50w Syringe) 25 ml Q15M PRN IV DECREASED GLUCOSE; Start 09/19/17 at 06:30 Dextrose (D50w Syringe) 50 ml Q15M PRN IV DECREASED GLUCOSE; Start 09/19/17 at 06:30 Glucagon (Glucagen) 1 mg Q15M PRN IM DECREASED GLUCOSE; Start 09/19/17 at 06: 30 Glucose (Glutose) 15 gm Q15M PRN BUCCAL DECREASED GLUCOSE; Start 09/19/17 at 06:30 Aspirin (Aspirin) 81 mg DAILY PO Last administered on 09/24/17 08:48; Admin Dose 81 MG; Start 09/20/17 at 09:30; Status Future hold Clopidogrel Bisulfate (plaVIX) 75 mg DAILY PO Last administered on 09/24/17 08 :48; Admin Dose 75 MG; Start 09/20/17 at 09:30; Status Future hold Metoprolol Tartrate (Lopressor) 25 mg BID PO Last administered on 09/24/17 08: 49; Admin Dose 25 MG; Start 09/20/17 at 21:00 Diagnostic Test (Pha) (Accu-Chek) XX ; Start 09/24/17 at 02:00 ASHLEY HENLEY Sep 24, 2017 12:32
[2017-09-24] MEDS ORDERED: PANTOPRAZOLE (EC) 40 MG TAB PO SCH (18:00)
== END 2017-09-24 17:45 | disposition home or self-care (01) | DRG 377 ==
LOC: E/R 23:32 → MS3 09-19 03:28 → MS4 09-19 19:09
PROVIDERS: ADMIT Internal Medicine; ATTEND Internal Medicine
PROC: 0DJD8ZZ Inspection of Lower Intestinal Tract, Via Natural or Artificial Opening Endoscopic (ICD-10-PCS; principal; 2017-09-23 19:30)
DX: K92.1 Melena (principal); I21.11 ST elevation (STEMI) myocardial infarction involving right coronary artery; I25.810 Atherosclerosis of coronary artery bypass graft(s) without angina pectoris; I10 Essential (primary) hypertension; Z95.1 Presence of aortocoronary bypass graft; Z95.5 Presence of coronary angioplasty implant and graft; Z95.3 Presence of xenogenic heart valve; E11.9 Type 2 diabetes mellitus without complications; K63.5 Polyp of colon; K64.8 Other hemorrhoids; Z79.82 Long term (current) use of aspirin; Z79.02 Long term (current) use of antithrombotics/antiplatelets; Z86.2 Personal history of diseases of the blood and blood-forming organs and certain disorders involving the immune mechanism
CPT/HCPCS: 71010; 74176; 80053; 82550; 82553; 82962; 83735; 84484; 85014; 85018; 85025; 85610; 85730; 86850; 86900; 86901; 90686; 93005; 96374; C9113; J1815; J7030; J7042